=== PATIENT | female | born 1950 | race Caucasian/White ===

== ENCOUNTER → 2018-05-29 17:15 | Outpatient (CLI) | payer BC, SELFPAY ==
[2017-02-12 11:46] VITALS: BMI 31.1
--- NOTE | 2018-05-29 17:22 | RAD_ITS ---
STUDY: X-RAY CHEST REASON FOR EXAM: Female, 67 years old. Chronic cough TECHNIQUE: 2 views COMPARISON: None. FINDINGS: The lungs are clear and expanded. There is no demonstrated pleural abnormality. Normal size heart. Normal mediastinum and sahil. Normal visualized pulmonary arteries. Normal visualized aortic arch and descending thoracic aorta. Mild degenerative changes of the thoracic spine. A mild and gentle thoracic scoliosis with convexity to the right. Normal visualized ribs, clavicles, and shoulders. There is no demonstrated abnormality of the visualized soft tissue structures of the upper abdomen. RAD/Chest PA and Lateral IMPRESSION: No acute findings in the lungs. Electronically Signed: Hunter Cook MD at 23:33 EST Tel , Service support ,
== END ==
PROVIDERS: Family Provider Family Medicine; PCP Family Medicine; Referring Provider Family Medicine; Visit Provider Family Medicine
DX: R05 Cough (principal)
CPT/HCPCS: 71046

== ENCOUNTER → 2018-06-12 07:42 | Outpatient (CLI) | payer BC, SELFPAY ==
--- NOTE | 2018-06-12 07:44 | BI_ITS ---
MAMMOGRAPHY - BILATERAL SCREENING REASON FOR EXAM: Female, 67 years old. Routine annual screening examination. PERTINENT HISTORY: Non-contributory. TECHNIQUE: Digital bilateral breast rosalina (3D mammographic acquisition) in the CC and MLO projections. 2-D mediolateral oblique (MLO) and craniocaudad (CC) views of both breasts were obtained. CAD: Full Field Digital Mammography with Computer Added Detection was performed. COMPARISON: Comparison is made with prior study dated March 20, 2016 and April 24, 2017. FINDINGS: Breast Composition: There are scattered areas of fibroglandular density. There are no dominant masses or suspicious calcifications. Stable benign-appearing bilateral axillary lymph nodes. No other significant abnormalities are identified. There has been no significant change since the prior study. BI/SCREENING MAMM (CAD), BILAT IMPRESSION: Stable bilateral screening mammogram. Yearly follow-up mammogram recommended. (A) ASSESSMENT CATEGORY: BIRADS Category 2: Benign. A letter regarding these results will be sent to the patient by the facility within 30 days. Approximately 10% of breast cancers are not detected by mammography. A normal mammogram should not delay biopsy of a clinically suspicious abnormality. [id number] Electronically Signed: Kip Celestin MD at 11:26 EST Tel [phone], Service support ,
--- OUTSIDE RECORDS SUMMARY | 2018-08-16 22:30 | XMS RPT_ITS ---
:1950 Author Organization [facility] Care Team Providers Name Role Phone Rebecca Gonzales Attending Unavailable Rbeecca Gonzales Referring Unavailable Rebecca Gonzales Primary Care Unavailable MalysRebecca Attending Unavailable Malys, Rebecca Primary Care Unavailable PROBLEMS PROBLEMS DATE TYPE CONDITION / CODE ATTENDING STATUS SOURCE 05/29/2018 Unknown R05 - Cough / Janet Rebecca Active [place] R05(ICD-10) [facility] Repository PROCEDURES PROCEDURES No Procedure Records FoundRESULTS RESULTS SCREENING MAMM (CAD), Observed: 06/12/2018 Status: F Source: [place] BIL 7:44 AM [facility] REPOSITORY [facility] Imaging Services [address] [place] [address] SCREENING MAMM (CAD), BILAT MR#: [id number] Acct: [id number] Name: MICHELLE WAKEFIELD Rep #: [id number] : 1950 F 67 From: Kip Celestin MD PCP: Rebecca Gonzales DO Status: REG CLI Study: SCREENING MAMM (CAD), BILAT Date of Exam: 06/12/18 Exam# [id number] Ordering Dr: Rebecca Gonzales DO MAMMOGRAPHY - BILATERAL SCREENING REASON FOR EXAM: Female, 67 years old. Routine annual screening examination. PERTINENT HISTORY: Non-contributory. TECHNIQUE: Digital bilateral breast rosalina (3D mammographic acquisition) in the CC and MLO projections. 2-D mediolateral oblique (MLO) and craniocaudad (CC) views of both breasts were obtained. CAD: Full Field Digital Mammography with Computer Added Detection was performed. COMPARISON: Comparison is made with prior study dated March 20, 2016 and April 24, 2017. FINDINGS: Breast Composition: There are scattered areas of fibroglandular density. There are no dominant masses or suspicious calcifications. Stable benign-appearing bilateral axillary lymph nodes. No other significant abnormalities are identified. There has been no significant change since the prior study. BI/SCREENING MAMM (CAD), BILAT IMPRESSION: Stable bilateral screening mammogram. Yearly follow-up mammogram recommended. (A) ASSESSMENT CATEGORY: BIRADS Category 2: Benign. A letter regarding these results will be sent to the patient by the facility within 30 days. Approximately 10% of breast cancers are not detected by mammography. A normal mammogram should not delay biopsy of a clinically suspicious abnormality. [id number] Electronically Signed: Kip Celestin MD at 11:26 EST Tel [phone], Service support , CC: Rebecca Gonzales DO [employer]: Signed CHEST PA AND LATERAL Observed: 05/29/2018 Status: F Source: [place] 5:22 PM [facility] REPOSITORY [facility] Imaging Services [facility] [place] [address] Chest PA and Lateral MR#: [id number] Acct: [id number] Name: MICHELLE WAKEFIELD Rep #: [id number] : 1950 F 67 From: Hunter Cook MD PCP: Rebecca Gonzales DO Status: REG CLI Study: Chest PA and Lateral Date of Exam: 05/29/18 Exam# [id number] Ordering Dr: Rebecca Gonzales DO STUDY: X-RAY CHEST REASON FOR EXAM: Female, 67 years old. Chronic cough TECHNIQUE: 2 views COMPARISON: None. FINDINGS: The lungs are clear and expanded. There is no demonstrated pleural abnormality. Normal size heart. Normal mediastinum and sahil. Normal visualized pulmonary arteries. Normal visualized aortic arch and descending thoracic aorta. Mild degenerative changes of the thoracic spine. A mild and gentle thoracic scoliosis with convexity to the right. Normal visualized ribs, clavicles, and shoulders. There is no demonstrated abnormality of the visualized soft tissue structures of the upper abdomen. RAD/Chest PA and Lateral IMPRESSION: No acute findings in the lungs. Electronically Signed: Hunter Cook MD at 23:33 EST Tel , Service support , CC: Rebecca Gonzales DO Company [employer] Driver: Signed ALLERGIES ALLERGIES DATE TYPE / CODE NAME / CODE REACTION SEVERITY SOURCE 02/07/2017 Drug Sulfa DOESNT WORK FOR Unknown [facility] Allergy/4160 (Sulfonamide [facility] [address](SNOMED Antibiotics)/ Repository CT) [id number](RX NORM) ENCOUNTERS ENCOUNTERS ADMIT/DISCHARGE ACCOUNT ADMITTING ENCOUNTER LOCATION SOURCE NUMBER CLASS 06/12/2018 [id number] Ambulatory [place] ing:OPBI Repository 05/29/2018 [id number] Ambulatory [address] ing:RAD Repository PAYERS PAYERS ENCOUNTER GUARANTOR PAYER SUBSCRIBER SOURCE 06/12/2018 MICHELLE C Primary MICHELLE C [place] [id number] DEER Insurance:ANTHEMPolic BEEMANDOB: [facility], y Number: [id number] [address]Khx: [id number] Repository Date:[id number], [place] [address]YL: 06/12/2018 Secondary NOT GIVENUNK [place] Insurance:SELF PAY [facility] Number: Effective Repository Date:2018-05-29 05/29/2018 MICHELLE C Primary MICHELLE C [place] [id number] DEER Insurance:ANTHEMPolic BEEMANDOB: [facility], y Number: [id number] [address]Ppu: [id number] Repository Date:[id number] () [address], [place] [address]QH: 05/29/2018 Secondary NOT GIVENUNK [place] Insurance:SELF PAY [facility] Number: Effective Repository Date:2018-05-29
== END ==
PROVIDERS: Family Provider Family Medicine; PCP Family Medicine; Visit Provider Family Medicine
DX: Z12.31 Encounter for screening mammogram for malignant neoplasm of breast (principal)
CPT/HCPCS: 77063; 77067

== ENCOUNTER → 2019-11-05 08:13 | Outpatient (CLI) | payer MEDICARE, OTHER, SELFPAY ==
[2017-02-12 11:46] VITALS: BMI 31.1
[2019-11-05 12:30] LABS: Absolute Lymphocyte Count 1.66 X10^3/uL (0.83-4.51); Absolute Neutrophil Count 3.6 X10^3/uL (2.0-7.7); Basophil# 0.05 X10^3/uL; Basophil% 0.9 % (0-1); Eosinophil# 0.14 X10^3/uL; Eosinophils% 2.4 % (0-5); Hematocrit 46.4 % (37-47); Hemoglobin 14.5 g/dL (12.0-15.0); Lymphocyte # 1.66 X10^3/ul (4.0); Lymphocyte % 28.4 % (19-41); Mean Corp Hgb Conc 31.3 g/dL (32-36); Mean Corpuscular Hgb 29.8 pg (27.0-32.0); Mean Corpuscular Volume 95.5 fL (81-99); Monocyte# 0.42 X10^3/uL; Monocyte% 7.2 % (0-10); NRBC Flagged by Analyzer 0 % (0-5); Neutrophil # 3.56 X10^3/uL (2.7-7.7); Neutrophil % 60.8 % (47-70); Platelet Count 190 K/mm3 (150-450); RBC Distribution Width CV 13.9 % (11.6-14.6); RBC Distribution Width SD 48.3 fl (35.1-43.9); Red Blood Count 4.86 M/mm3 (4.2-5.4); White Blood Count 5.9 K/mm3 (4.4-11.0)
[2019-11-05 12:53] LABS: AST(SGOT) 18 U/L (15-37); Alanine Aminotransfer ALT/SGPT 28 U/L (13-56); Albumin, Serum 3.5 g/dL (3.2-5.0); Alkaline Phosphatase 69 U/L (45-117); Anion Gap 9 (5-15); BUN 17 mg/dL (7-18); BUN/Creat Ratio 14.4 RATIO (10-20); Calcium,Total 8.8 mg/dL (8.5-10.1); Chloride 107 mmol/L (98-107); Cholesterol 189 mg/dL (200); Creatinine, Serum 1.18 mg/dL (0.55-1.02); EST Glomerular Filtration Rate 48 mL/min (>60); Est Glom Filt Rate - Afr Amer 58 mL/min (>60); Globulin 3.5 g/dL (2.2-4.2); Glucose 116 mg/dL (74-106); High Density Lipoprotein 45 mg/dL; Potassium 4.5 mmol/L (3.5-5.1); Sodium Level 142 mmol/L (136-145); Thyroid Stim Hormone (TSH) 0.91 uIU/mL (0.358-3.74); Triglycerides 175 mg/dL; Very Low Density Lipoprotein 35 mg/dL (5-40); Vitamin B12 889 pg/mL (211-911); Vitamin D,25 Hydroxy 74.6 ng/mL
== END ==
PROVIDERS: PCP Family Medicine; Visit Provider Family Medicine
DX: Z00.00 Encounter for general adult medical examination without abnormal findings (principal); E53.8 Deficiency of other specified B group vitamins; R53.83 Other fatigue; M81.0 Age-related osteoporosis without current pathological fracture; E78.5 Hyperlipidemia, unspecified
CPT/HCPCS: 36415; 80053; 80061; 82306; 82607; 84443; 85025

== ENCOUNTER → 2019-12-03 12:11 | Outpatient (CLI) | payer MEDICARE, OTHER, SELFPAY ==
--- NOTE | 2019-12-03 12:16 | BI_ITS ---
MAMMOGRAPHY - BILATERAL SCREENING REASON FOR EXAM: Female, 69 years old. Routine annual screening examination. PERTINENT HISTORY: Non-contributory. TECHNIQUE: Digital bilateral breast adriana (3D mammographic acquisition) in the CC and MLO projections. 2-D mediolateral oblique (MLO) and craniocaudad (CC) views of both breasts were obtained. CAD: Full Field Digital Mammography with Computer Added Detection was performed. COMPARISON: Comparison is made with prior examination dated December 10, 2018 and April 24, 2017. FINDINGS: Breast Composition: There are scattered areas of fibroglandular density. There are no dominant masses or suspicious calcifications. Stable benign-appearing bilateral axillary lymph nodes. No other significant abnormalities are identified. There has been no significant change since the prior study. BI/SCREEN MAMM (CAD) W/ADRIANA BILAT IMPRESSION: Stable bilateral screening mammogram. Yearly follow-up mammogram recommended. (A) ASSESSMENT CATEGORY: BIRADS Category 2: Benign. A letter regarding these results will be sent to the patient by the facility within 30 days. Approximately 10% of breast cancers are not detected by mammography. A normal mammogram should not delay biopsy of a clinically suspicious abnormality. [id number] Electronically Signed: Kip Celestin, at 13:19 EDT , Service support ,
== END ==
PROVIDERS: PCP Family Medicine; Referring Provider Family Medicine; Visit Provider Family Medicine
DX: Z12.31 Encounter for screening mammogram for malignant neoplasm of breast (principal)
CPT/HCPCS: 77063; 77067

== ENCOUNTER → 2021-03-04 11:23 | Outpatient (CLI) | payer MEDICARE, OTHER, SELFPAY ==
--- NOTE | 2021-03-04 11:28 | BI_ITS ---
MAMMOGRAPHY - BILATERAL SCREENING 3-D TOMOSYNTHESIS REASON FOR EXAM: Female, 70 years old. SCREENING PERTINENT HISTORY: No significant family history. TECHNIQUE: 2-D mammograms and 3-D Tomosynthesis of the breast (s) were performed. CAD was performed. COMPARISON: 12/03/2019 FINDINGS: The breast composition is composed of scattered fibroglandular density. Scattered benign calcifications are seen. No dense spiculated masses or suspicious microcalcifications are identified. No architectural distortion is identified. There is no skin thickening or retraction. There has been no significant change since the prior study. BI/SCRN MAMM (CAD)W/ADRIANA BILAT IMPRESSION: No mammographic signs of malignancy. Routine yearly mammograms recommended. ASSESSMENT CATEGORY: BIRADS Category 1: Negative. A letter regarding these results will be sent to the patient by the facility within 30 days. FOLLOW UP RECOMMENDATION: Yearly follow up mammogram recommended. (A) Approximately 10% of breast cancers are not detected by mammography. A normal mammogram should not delay biopsy of a clinically suspicious abnormality. Electronically Signed: Yasmani Lee MD at 14:40 EDT Tel , Service support ,
== END ==
PROVIDERS: PCP Family Medicine; Referring Provider Family Medicine; Visit Provider Family Medicine
DX: Z12.31 Encounter for screening mammogram for malignant neoplasm of breast (principal)
CPT/HCPCS: 77063; 77067

== ENCOUNTER → 2022-04-11 | Outpatient (CLI) | payer MEDICARE, OTHER, SELFPAY ==
[2022-04-11 11:58] LABS: Absolute Lymphocyte Count 1.67 X10^3/uL (0.83-4.51); Absolute Neutrophil Count 3.4 X10^3/uL (2.0-7.7); Basophil# 0.06 X10^3/uL; Basophil% 1.1 % (0-1); Eosinophil# 0.22 X10^3/uL; Eosinophils% 3.9 % (0-5); Hemoglobin 15.1 g/dL (12.0-15.0); Lymphocyte # 1.67 X10^3/ul (0.83-4.51); Lymphocyte % 29.5 % (19-41); Mean Corp Hgb Conc 32.8 g/dL (32-36); Mean Corpuscular Hgb 30.6 pg (27.0-32.0); Mean Corpuscular Volume 93.3 fL (81-99); Mean Platelet Vol. 10.6 fl (6.2-12.0); Monocyte# 0.34 X10^3/uL; NRBC Flagged by Analyzer 0 % (0-5); Neutrophil # 3.36 X10^3/uL (2.7-7.7); Neutrophil % 59.1 % (47-70); Platelet Count 205 K/mm3 (150-450); RBC Distribution Width CV 13.5 % (11.6-14.6); RBC Distribution Width SD 46.3 fl (35.1-43.9); Red Blood Count 4.93 M/mm3 (4.2-5.4); White Blood Count 5.7 K/mm3 (4.4-11.0)
[2022-04-11 12:05] LABS: AST(SGOT) 15 U/L (15-37); Alanine Aminotransfer ALT/SGPT 25 U/L (13-56); Albumin, Serum 3.5 g/dL (3.2-5.0); Alkaline Phosphatase 55 U/L (45-117); Anion Gap 5 (5-15); BUN 11 mg/dL (7-18); BUN/Creat Ratio 11.9 RATIO (10-20); Calcium,Total 8.7 mg/dL (8.5-10.1); Chloride 108 mmol/L (98-107); Cholesterol 174 mg/dL (200); Creatinine, Serum 0.92 mg/dL (0.55-1.02); EST Glomerular Filtration Rate 63 mL/min (>60); Est Glom Filt Rate - Afr Amer 77 mL/min (>60); Globulin 3.5 g/dL (2.2-4.2); Glucose 107 mg/dL (74-106); High Density Lipoprotein 54 mg/dL; Potassium 4.2 mmol/L (3.5-5.1); Sodium Level 142 mmol/L (136-145); Triglycerides 171 mg/dL; Very Low Density Lipoprotein 34 mg/dL (5-40)
== END | disposition home or self-care (01) ==
LOC: BFHLAB 09:22
PROVIDERS: PCP Family Medicine; Visit Provider Family Medicine
DX: Z51.81 Encounter for therapeutic drug level monitoring (principal); E78.5 Hyperlipidemia, unspecified
CPT/HCPCS: 36415; 80053; 80061; 85025

== ENCOUNTER → 2022-04-27 | Outpatient (CLI) | payer MEDICARE, OTHER, SELFPAY ==
--- NOTE | 2022-04-27 13:09 | BI_ITS ---
MAMMOGRAPHY - BILATERAL SCREENING REASON FOR EXAM: Female, 71 years old. Routine annual screening examination. PERTINENT HISTORY: Non-contributory. TECHNIQUE: Digital bilateral breast adriana (3D mammographic acquisition) in the CC and MLO projections. 2-D mediolateral oblique (MLO) and craniocaudad (CC) views of both breasts were obtained. CAD: Full Field Digital Mammography with Computer Added Detection was performed. COMPARISON: Comparison is made with prior study dated 03/04/2021 and 12/03/2019. FINDINGS: Breast Composition: There are scattered areas of fibroglandular density. There are no dominant masses or suspicious calcifications. Stable small benign-appearing bilateral axillary No other significant abnormalities are identified. There has been no significant change since the prior study. BI/SCRN MAMM (CAD)W/ADRIANA BILAT IMPRESSION: Stable bilateral screening mammogram. Yearly follow-up mammogram recommended. (A) ASSESSMENT CATEGORY: BIRADS Category 2: Benign. A letter regarding these results will be sent to the patient by the facility within 30 days. Approximately 10% of breast cancers are not detected by mammography. A normal mammogram should not delay biopsy of a clinically suspicious abnormality. [id number] Electronically Signed: Kip Celestin MD at 14:14 EST ,
--- NOTE | 2022-04-27 13:27 | BD_ITS ---
STUDY: DUAL ENERGY X-RAY ABSORPTIOMETRY / DXA REASON FOR EXAM: Female, 71 years old. M810 TECHNIQUE: Bone Mineral Density (BMD) measurements of lumbar spine and bilateral hips were obtained. COMPARISON: Comparison is made with prior examination 01/23/2012. FINDINGS: Lumbar Spine (L1-L4): g/cm2 (0.774) / T-score (-2.2) / Z-score (0.1) Findings are suggestive of osteopenia with a high fracture risk. Left Femur Total: g/cm2 (0.739) / T-score (-1.7) / Z-score (0.0) Left Femoral Neck: g/cm2 (0.577) / T-score (-2.5) / Z-score (-0.4) Right Femur Total: g/cm2 (0.769) / T-score (-1.4) / Z-score (0.3) Right Femoral Neck: g/cm2 (0.596) / T-score (-2.3) / Z-score (-0.3) The T-Scores on the most recent prior examination were: Lumbar Spine (L1-L4): There has been worsening of bone density since the previous examination. Left Femur Total: which represents a worsening of 8%. Right Femur Total: which represents a worsening of 4.8%. BD/Dexa Bone Density Study IMPRESSION: The patient is considered osteopenic as outlined below according to World Markos Organization (WHO) criteria with a high fracture risk. There has been worsening of bone density since the previous examination. Reference Information: The T-score is the number of standard deviations above or below the standard which is normal for young adults at their peak bone mineral density. The World Health Organization (WHO) interprets the T-scores as follows: Above -1 Normal bone density Between -1 and -2.5 Osteopenia Equal to / or below -2.5 Osteoporosis As a practical clinical guideline, osteopenia may be graded as follows: Mild -1 through -1.5 Moderate -1.6 through -2.0 Severe -2.1 through -2.4 The Z-score is the number of standard deviations above or below age-matched controls. A Z-score of less than -1.5 would be considered abnormal. References: 1. NIH Osteoporosis and Related Bone Diseases www osteo.org 2. International Society for Clinical Densitometry www iscd.org 3. National Osteoporosis Foundation www nof.org Electronically Signed: Kip Celestin MD at 14:07 EST ,
== END | disposition home or self-care (01) ==
LOC: OPBD 13:06
PROVIDERS: PCP Family Medicine; Visit Provider Family Medicine
DX: Z12.31 Encounter for screening mammogram for malignant neoplasm of breast (principal); M81.0 Age-related osteoporosis without current pathological fracture
CPT/HCPCS: 77063; 77067; 77080

== ENCOUNTER → 2022-07-04 | Outpatient (CLI) | payer MEDICARE, OTHER, SELFPAY ==
[2022-07-04 14:41] LABS: Absolute Lymphocyte Count 1.42 X10^3/uL (0.83-4.51); Absolute Neutrophil Count 5.4 X10^3/uL (2.0-7.7); Basophil# 0.06 X10^3/uL; Basophil% 0.8 % (0-1); Eosinophil# 0.12 X10^3/uL; Eosinophils% 1.6 % (0-5); Hematocrit 47.1 % (37-47); Hemoglobin 14.8 g/dL (12.0-15.0); Lymphocyte # 1.42 X10^3/ul (0.83-4.51); Lymphocyte % 19.3 % (19-41); Mean Corp Hgb Conc 31.4 g/dL (32-36); Mean Corpuscular Hgb 29.7 pg (27.0-32.0); Mean Corpuscular Volume 94.4 fL (81-99); Mean Platelet Vol. 10.3 fl (6.2-12.0); Monocyte# 0.32 X10^3/uL; Monocyte% 4.3 % (0-10); NRBC Flagged by Analyzer 0 % (0-5); Neutrophil # 5.43 X10^3/uL (2.7-7.7); Neutrophil % 73.7 % (47-70); Platelet Count 204 K/mm3 (150-450); RBC Distribution Width CV 13.3 % (11.6-14.6); RBC Distribution Width SD 46.6 fl (35.1-43.9); Red Blood Count 4.99 M/mm3 (4.2-5.4); White Blood Count 7.4 K/mm3 (4.4-11.0)
[2022-07-04 15:13] LABS: AST(SGOT) 18 U/L (15-37); Alanine Aminotransfer ALT/SGPT 23 U/L (13-56); Alkaline Phosphatase 65 U/L (45-117); Bilirubin, Direct 0.11 mg/dL (0.00-0.30); Globulin 3.4 g/dL (2.2-4.2); Protein, Total 7.4 g/dL (6.4-8.2)
[2022-07-04 16:27] LABS: Hepatitis B Surface Antibody Non-Reactive; Hepatitis B Surface Antigen Non-Reactive (Nonreactive); Hepatitis C Antibody Non-Reactive (Nonreactive)
[2022-07-06 16:10] LABS: QNTFERON TB Mitogen Value > 10.00 IU/mL (.); QNTFERON TB Nil Value 0.01 IU/mL (.); QNTFERON TB1+ Ag Value 0.04 IU/mL (.); QNTFERON TB2+ Ag Value 0.01 IU/mL (.)
[2022-07-06 16:41] LABS: Hepatitis B Core Ab Total Negative (Negative); QNTIFERON TB Positive Criteria Negative (Negative)
== END | disposition home or self-care (01) ==
LOC: MTLAB 13:12
PROVIDERS: PCP Family Medicine; Referring Provider Dermatology; Visit Provider Dermatology
DX: L40.0 Psoriasis vulgaris (principal); L40.8 Other psoriasis; Z79.899 Other long term (current) drug therapy
CPT/HCPCS: 36415; 80076; 85025; 86480; 86704; 86706; 86803; 87340

== ENCOUNTER → 2023-04-10 | Outpatient (CLI) | payer MEDICARE, OTHER, SELFPAY ==
[2023-04-10 12:37] LABS: Absolute Lymphocyte Count 1.35 X10^3/uL (0.83-4.51); Absolute Neutrophil Count 4.9 X10^3/uL (2.0-7.7); Basophil# 0.08 X10^3/uL; Basophil% 1.2 % (0-1); Eosinophil# 0.15 X10^3/uL; Eosinophils% 2.2 % (0-5); Hematocrit 44.5 % (37-47); Hemoglobin 13.9 g/dL (12.0-15.0); Lymphocyte # 1.35 X10^3/ul (0.83-4.51); Lymphocyte % 19.5 % (19-41); Mean Corp Hgb Conc 31.2 g/dL (32-36); Mean Corpuscular Hgb 29.8 pg (27.0-32.0); Mean Corpuscular Volume 95.5 fL (81-99); Mean Platelet Vol. 10.9 fl (6.2-12.0); Monocyte# 0.43 X10^3/uL; Monocyte% 6.2 % (0-10); NRBC Flagged by Analyzer 0 % (0-5); Neutrophil # 4.88 X10^3/uL (2.7-7.7); Neutrophil % 70.6 % (47-70); Platelet Count 225 K/mm3 (150-450); RBC Distribution Width CV 13.9 % (11.6-14.6); RBC Distribution Width SD 48.5 fl (35.1-43.9); Red Blood Count 4.66 M/mm3 (4.2-5.4); White Blood Count 6.9 K/mm3 (4.4-11.0)
[2023-04-10 13:05] LABS: AST(SGOT) 21 U/L (15-37); Alanine Aminotransfer ALT/SGPT 25 U/L (13-56); Albumin, Serum 3.4 g/dL (3.2-5.0); Alkaline Phosphatase 61 U/L (45-117); Anion Gap 4 (5-15); BUN 13 mg/dL (7-18); BUN/Creat Ratio 14.4 RATIO (10-20); Calcium,Total 8.6 mg/dL (8.5-10.1); Chloride 108 mmol/L (98-107); Cholesterol 160 mg/dL (200); EST Glomerular Filtration Rate 65 mL/min (>60); Est Glom Filt Rate - Afr Amer 78 mL/min (>60); Free T3 2.8 pg/mL (2.18-3.98); Globulin 3.5 g/dL (2.2-4.2); Glucose 99 mg/dL (74-106); High Density Lipoprotein 48 mg/dL; Potassium 4.4 mmol/L (3.5-5.1); Protein, Total 6.9 g/dL (6.4-8.2); Sodium Level 141 mmol/L (136-145); Thyroid Stim Hormone (TSH) 0.53 uIU/mL (0.358-3.74); Triglycerides 185 mg/dL; Very Low Density Lipoprotein 37 mg/dL (5-40)
[2023-04-10 13:48] LABS: Hemoglobin A1c 5.7 % (3.8-5.6)
== END | disposition home or self-care (01) ==
LOC: BFHLAB 08:48
PROVIDERS: PCP Family Medicine; Visit Provider Family Medicine
DX: R73.03 Prediabetes (principal); R53.83 Other fatigue; Z51.81 Encounter for therapeutic drug level monitoring; E78.5 Hyperlipidemia, unspecified
CPT/HCPCS: 36415; 80053; 80061; 83036; 84443; 84481; 85025

== ENCOUNTER → 2023-05-10 | Outpatient (CLI) | payer MEDICARE, OTHER, SELFPAY ==
--- NOTE | 2023-05-10 12:18 | BI_ITS ---
MAMMOGRAPHY - BILATERAL SCREENING REASON FOR EXAM: Female, 72 years old. Routine annual screening examination. PERTINENT HISTORY: Non-contributory. TECHNIQUE: Digital bilateral breast adriana (3D mammographic acquisition) in the CC and MLO projections. 2-D mediolateral oblique (MLO) and craniocaudad (CC) views of both breasts were obtained. CAD: Full Field Digital Mammography with Computer Added Detection was performed. COMPARISON: Comparison is made with prior study dated April 27, 2022 and March 04, 2021. FINDINGS: Breast Composition: There are scattered areas of fibroglandular density. There are no dominant masses or suspicious calcifications. Stable benign-appearing bilateral axillary lymph nodes. No other significant abnormalities are identified. There has been no significant change since the prior study. BI/SCRN MAMM (CAD)W/ADRIANA BILAT IMPRESSION: Stable bilateral screening mammogram. Yearly follow-up mammogram recommended. (A) ASSESSMENT CATEGORY: BIRADS Category 2: Benign. A letter regarding these results will be sent to the patient by the facility within 30 days. Approximately 10% of breast cancers are not detected by mammography. A normal mammogram should not delay biopsy of a clinically suspicious abnormality. [id number] Electronically Signed: Kip Celestin MD at 13:54 EST ,
== END | disposition home or self-care (01) ==
LOC: OPBI 12:15
PROVIDERS: PCP Family Medicine; Referring Provider Family Medicine; Visit Provider Family Medicine
DX: Z12.31 Encounter for screening mammogram for malignant neoplasm of breast (principal)
CPT/HCPCS: 77063; 77067

== ENCOUNTER → 2023-07-09 | Outpatient (CLI) | payer MEDICARE, OTHER, SELFPAY ==
[2023-07-09 17:55] LABS: Absolute Lymphocyte Count 1.56 X10^3/uL (0.83-4.51); Absolute Neutrophil Count 4.4 X10^3/uL (2.0-7.7); Basophil# 0.05 X10^3/uL; Basophil% 0.8 % (0-1); Eosinophils% 1.5 % (0-5); Hematocrit 43.5 % (37-47); Lymphocyte # 1.56 X10^3/ul (0.83-4.51); Lymphocyte % 23.6 % (19-41); Mean Corp Hgb Conc 32.2 g/dL (32-36); Mean Corpuscular Hgb 29.7 pg (27.0-32.0); Mean Corpuscular Volume 92.2 fL (81-99); Mean Platelet Vol. 10.9 fl (6.2-12.0); Monocyte# 0.48 X10^3/uL; Monocyte% 7.3 % (0-10); NRBC Flagged by Analyzer 0 % (0-5); Neutrophil # 4.41 X10^3/uL (2.7-7.7); Neutrophil % 66.5 % (47-70); Platelet Count 206 K/mm3 (150-450); RBC Distribution Width CV 13.8 % (11.6-14.6); RBC Distribution Width SD 47.1 fl (35.1-43.9); Red Blood Count 4.72 M/mm3 (4.2-5.4); White Blood Count 6.6 K/mm3 (4.4-11.0)
[2023-07-09 18:12] LABS: AST(SGOT) 18 U/L (15-37); Alanine Aminotransfer ALT/SGPT 26 U/L (13-56); Albumin, Serum 3.7 g/dL (3.2-5.0); Alkaline Phosphatase 65 U/L (45-117); Bilirubin, Direct 0.08 mg/dL (0.00-0.30); Globulin 3.2 g/dL (2.2-4.2); Protein, Total 6.9 g/dL (6.4-8.2)
[2023-07-11 16:09] LABS: QNTFERON TB Mitogen Value > 10.00 IU/mL (.); QNTFERON TB Nil Value 0.01 IU/mL (.); QNTFERON TB1+ Ag Value 0.03 IU/mL (.); QNTFERON TB2+ Ag Value 0.02 IU/mL (.); QNTIFERON TB Positive Criteria Negative (Negative)
== END | disposition home or self-care (01) ==
PROVIDERS: PCP Family Medicine; Referring Provider Dermatology; Visit Provider Dermatology
DX: L40.0 Psoriasis vulgaris (principal); L40.8 Other psoriasis; Z79.899 Other long term (current) drug therapy
CPT/HCPCS: 36415; 80076; 85025; 86480

== ENCOUNTER → 2024-04-10 | Outpatient (CLI) | payer MEDICARE, OTHER, SELFPAY ==
[2024-04-10 15:37] LABS: Absolute Lymphocyte Count 1.53 X10^3/uL (0.83-4.51); Absolute Neutrophil Count 4.7 X10^3/uL (2.0-7.7); Basophil# 0.05 X10^3/uL; Basophil% 0.7 % (0-1); Eosinophil# 0.09 X10^3/uL; Eosinophils% 1.3 % (0-5); Hematocrit 44.2 % (37-47); Hemoglobin 14.2 g/dL (12.0-15.0); Lymphocyte # 1.53 X10^3/ul (0.83-4.51); Lymphocyte % 22.3 % (19-41); Mean Corp Hgb Conc 32.1 g/dL (32-36); Mean Corpuscular Hgb 29.9 pg (27.0-32.0); Mean Corpuscular Volume 93.1 fL (81-99); Mean Platelet Vol. 10.9 fl (6.2-12.0); Monocyte# 0.42 X10^3/uL; Monocyte% 6.1 % (0-10); NRBC Flagged by Analyzer 0 % (0-5); Neutrophil # 4.73 X10^3/uL (2.7-7.7); Neutrophil % 69.2 % (47-70); Platelet Count 212 K/mm3 (150-450); RBC Distribution Width CV 13.7 % (11.6-14.6); Red Blood Count 4.75 M/mm3 (4.2-5.4); White Blood Count 6.9 K/mm3 (4.4-11.0)
[2024-04-10 15:53] LABS: Vitamin B12 395 pg/mL (211-911)
[2024-04-10 16:25] LABS: ALB/GLOB Ratio 1.2 RATIO (0.9-2.4); AST(SGOT) 19 U/L (15-37); Alanine Aminotransfer ALT/SGPT 29 U/L (13-56); Albumin, Serum 3.8 g/dL (3.2-5.0); Alkaline Phosphatase 66 U/L (45-117); Anion Gap 4 (5-15); BUN 19 mg/dL (7-18); BUN/Creat Ratio 20.1 RATIO (10-20); Chloride 109 mmol/L (98-107); Cholesterol 168 mg/dL (200); Creatinine, Serum 0.94 mg/dL (0.55-1.02); EST Glomerular Filtration Rate 61 mL/min (>60); Est Glom Filt Rate - Afr Amer 74 mL/min (>60); Free T3 3.1 pg/mL (2.18-3.98); Globulin 3.3 g/dL (2.2-4.2); Glucose 96 mg/dL (74-106); High Density Lipoprotein 51 mg/dL; Potassium 4.1 mmol/L (3.5-5.1); Protein, Total 7.1 g/dL (6.4-8.2); Sodium Level 141 mmol/L (136-145); Thyroid Stim Hormone (TSH) 0.432 uIU/mL (0.358-3.740); Triglycerides 167 mg/dL; Very Low Density Lipoprotein 33 mg/dL (5-40)
== END | disposition home or self-care (01) ==
LOC: BFHLAB 13:27
PROVIDERS: PCP Family Medicine; Referring Provider Family Medicine; Visit Provider Family Medicine
DX: R53.83 Other fatigue (principal); R73.03 Prediabetes; E78.5 Hyperlipidemia, unspecified; E53.8 Deficiency of other specified B group vitamins; Z51.81 Encounter for therapeutic drug level monitoring
CPT/HCPCS: 36415; 80053; 80061; 82607; 83036; 84443; 84481; 85025

== ENCOUNTER → 2024-05-27 | Outpatient (CLI) | payer MEDICARE, OTHER, SELFPAY ==
--- NOTE | 2024-05-27 15:54 | BI_ITS ---
MAMMOGRAPHY - BILATERAL SCREENING 3-D TOMOSYNTHESIS REASON FOR EXAM: Female, 73 years old. SCREENING PERTINENT HISTORY: No significant family history. TECHNIQUE: 2-D mammograms and 3-D Tomosynthesis of the breast (s) were performed. CAD was performed. COMPARISON: 05/10/2023 FINDINGS: The breast composition is composed of scattered fibroglandular density. Scattered benign calcifications are seen. No dense spiculated masses or suspicious microcalcifications are identified. No architectural distortion is identified. There is no skin thickening or retraction. There has been no significant change since the prior study. BI/SCRN MAMM (CAD)W/ADRIANA BILAT IMPRESSION: No mammographic signs of malignancy. Routine yearly mammograms recommended. ASSESSMENT CATEGORY: BIRADS Category 1: Negative. A letter regarding these results will be sent to the patient by the facility within 30 days. FOLLOW UP RECOMMENDATION: Yearly follow up mammogram recommended. (A) Approximately 10% of breast cancers are not detected by mammography. A normal mammogram should not delay biopsy of a clinically suspicious abnormality. Electronically Signed: Yasmani Lee MD at 20:01 EST ,
--- NOTE | 2024-05-27 15:57 | BD_ITS ---
STUDY: DUAL ENERGY X-RAY ABSORPTIOMETRY / DXA REASON FOR EXAM: Female, 73 years old. Postmenopausal screening TECHNIQUE: Bone Mineral Density (BMD) measurements of lumbar spine and bilateral hips were obtained. COMPARISON: 2011 and 2009 FINDINGS: Lumbar Spine (L1-L4): g/cm2 (0.803) / T-score (-2.2) / Z-score (0.2) When compared to the previous study, the bone mineral density of the lumbar spine has decreased by 5.6% Left Femur Total: g/cm2 (0.781) / T-score (-1.3) / Z-score (0.5) Left Femoral Neck: g/cm2 (0.532) / T-score (-2.9) / Z-score (-0.7) Right Femur Total: g/cm2 (0.761) / T-score (-1.5) / Z-score (0.3) Right Femoral Neck: g/cm2 (0.597) / T-score (-2.3) / Z-score (-0.2) When compared to the previous study, the bone mineral density of the left femur has increased by 5.7%, while the right femur has decreased by 1% BD/Dexa Bone Density Study IMPRESSION: The patient is considered osteoporotic as outlined below according to World Markos Organization (WHO) criteria with a high fracture risk. 10 year fracture risk: Major osteoporotic fracture 14%, hip fracture 4% Reference Information: The T-score is the number of standard deviations above or below the standard which is normal for young adults at their peak bone mineral density. The World Health Organization (WHO) interprets the T-scores as follows: Above -1 Normal bone density Between -1 and -2.5 Osteopenia Equal to / or below -2.5 Osteoporosis As a practical clinical guideline, osteopenia may be graded as follows: Mild -1 through -1.5 Moderate -1.6 through -2.0 Severe -2.1 through -2.4 The Z-score is the number of standard deviations above or below age-matched controls. A Z-score of less than -1.5 would be considered abnormal. References: 1. NIH Osteoporosis and Related Bone Diseases www osteo.org 2. International Society for Clinical Densitometry www iscd.org 3. National Osteoporosis Foundation www nof.org Electronically Signed: Eugenio Shah MD at 11:31 EST ,
== END | disposition home or self-care (01) ==
LOC: OPBD 15:52
PROVIDERS: PCP Family Medicine; Referring Provider Family Medicine; Visit Provider Family Medicine
DX: M81.0 Age-related osteoporosis without current pathological fracture (principal); Z12.31 Encounter for screening mammogram for malignant neoplasm of breast
CPT/HCPCS: 77063; 77067; 77080

== ENCOUNTER → 2024-07-10 | Outpatient (CLI) | payer MEDICARE, OTHER, SELFPAY ==
[2024-07-10 17:37] LABS: Absolute Neutrophil Count 6.8 X10^3/uL (2.0-7.7); Basophil# 0.07 X10^3/uL; Basophil% 0.8 % (0-1); Eosinophil# 0.09 X10^3/uL; Hematocrit 46.4 % (37-47); Hemoglobin 14.6 g/dL (12.0-15.0); Lymphocyte % 18.4 % (19-41); Mean Corp Hgb Conc 31.5 g/dL (32-36); Mean Corpuscular Hgb 29.7 pg (27.0-32.0); Mean Corpuscular Volume 94.3 fL (81-99); Mean Platelet Vol. 10.4 fl (6.2-12.0); Monocyte# 0.61 X10^3/uL; Monocyte% 6.6 % (0-10); NRBC Flagged by Analyzer 0 % (0-5); Neutrophil # 6.75 X10^3/uL (2.7-7.7); Neutrophil % 72.9 % (47-70); Platelet Count 246 K/mm3 (150-450); RBC Distribution Width SD 48.3 fl (35.1-43.9); Red Blood Count 4.92 M/mm3 (4.2-5.4); White Blood Count 9.3 K/mm3 (4.4-11.0)
[2024-07-10 17:50] LABS: AST(SGOT) 15 U/L (15-37); Alanine Aminotransfer ALT/SGPT 30 U/L (13-56); Albumin, Serum 3.7 g/dL (3.2-5.0); Alkaline Phosphatase 109 U/L (45-117); Bilirubin, Direct 0.11 mg/dL (0.00-0.30); Globulin 3.7 g/dL (2.2-4.2); Protein, Total 7.4 g/dL (6.4-8.2)
[2024-07-12 17:07] LABS: QNTFERON TB Mitogen Value > 10.00 IU/mL (.); QNTFERON TB Nil Value 0.01 IU/mL (.); QNTFERON TB1+ Ag Value 0.03 IU/mL (.); QNTFERON TB2+ Ag Value 0.01 IU/mL (.); QNTIFERON TB Positive Criteria Negative (Negative)
== END | disposition home or self-care (01) ==
PROVIDERS: PCP Family Medicine; Referring Provider Dermatology; Visit Provider Dermatology
DX: L40.0 Psoriasis vulgaris (principal); L40.8 Other psoriasis; Z79.899 Other long term (current) drug therapy
CPT/HCPCS: 36415; 80076; 85025; 86480

== ENCOUNTER → 2024-10-13 | Outpatient (CLI) | payer MEDICARE, OTHER, SELFPAY ==
--- NOTE | 2024-10-13 12:37 | RAD_ITS ---
PROCEDURE: ABDOMEN SINGLE VIEW 10/13/2024 REASON FOR EXAM: DIARRHEA TECHNIQUE: Single view abdomen. Two total images to include the entire abdomen and pelvis COMPARISON: None available FINDINGS: Bowel-gas pattern appears within limits. No gaseous distention of bowel or evidence of mass effect. The visualized lung bases appear clear. Mild leftward appearing lumbar curvature. RAD/Abdomen Single View IMPRESSION: Bowel-gas pattern appears within limits. No gaseous distention of bowel or evid ence of mass effect. Reading Location: [id number]
== END | disposition home or self-care (01) ==
LOC: MTRAD 12:35
PROVIDERS: PCP Family Medicine; Referring Provider Nurse Practitioner Family; Visit Provider Nurse Practitioner Family
DX: R19.7 Diarrhea, unspecified (principal)
CPT/HCPCS: 74018

== ENCOUNTER 2024-10-14 07:34 | Outpatient (CLI) | payer MEDICARE, OTHER, SELFPAY ==
[2024-10-15 13:08] LABS: H. PYLORI STOOL AG Negative (Negative)
== END 2024-10-14 23:59 | disposition home or self-care (01) ==
LOC: MTLAB 07:35
PROVIDERS: PCP Family Medicine; Referring Provider Nurse Practitioner Family; Visit Provider Nurse Practitioner Family
DX: R19.7 Diarrhea, unspecified (principal)
CPT/HCPCS: 83630; 87177; 87209; 87338; 87493; 87506

== ENCOUNTER → 2024-10-30 | Outpatient (CLI) | payer MEDICARE, OTHER, SELFPAY ==
--- NOTE | 2024-10-30 12:43 | CT_ITS ---
PROCEDURE: ABDOMEN/PELVIS WITH CONTRAST 10/30/2024 REASON FOR EXAM: ASSESS GI FOR ABNORMALITIES TECHNIQUE: Abdomen and pelvis CT with intravenous and oral contrast. Coronal and Sagittal reconstruction series were provided. PATIENT PREPARATION: Per protocol CONTRAST: 96 mL Isovue-300 One or more dose reduction techniques were used (e.g., Automated exposure control, adjustment of the mA and/or kV according to patient size, use of iterative reconstruction technique. RADIATION DOSE SUMMARY: CTDlvol: 20.2 mGy DLP: 1087 mGycm COMPARISON: Abdominal radiographs on 10/13/2024 FINDINGS: Lung bases: Linear scarring or atelectasis in the lingula. Liver: Unremarkable Gallbladder: Unremarkable Spleen: Normal size. Pancreas: Normal size without evidence of mass surrounding inflammation or ductal dilation. Adrenals: Unremarkable Kidneys: No hydronephrosis or stone. Extrarenal pelvis on the right. Bladder: Unremarkable Reproductive Organs: Uterine calcifications, likely calcified leiomyoma. Bowel: No obstruction or inflammation. Normal appendix. There are tiny diverticula from the transverse duodenum. Colonic diverticulosis. Lymph nodes: Unremarkable Vasculature: Trace aortic atherosclerotic calcifications. Bones: Degenerative changes of the spine. Abdominal wall: Tiny fat containing umbilical hernia. CT/Abdomen/Pelvis WITH Contrast IMPRESSION: 1. No acute intra-abdominal abnormality. 2. Tiny diverticula of the transverse duodenum. 3. Colonic diverticulosis, without evidence of acute diverticulitis. Reading Location: [id number]
--- OUTSIDE RECORDS SUMMARY | 2024-10-30 21:21 | XMS RPT_ITS | CCD ---
Author Organization [facility] Care Team Providers Care Stump Shooter Name Role Phone Dr. Rebecca Gonzales Primary Care Provider Dr. Rebecca Gonzales Referring Provider [phone] LOPEZ Mcgee Attending Provider [phone] Dr. Rebecca Gonzales DO Primary Care Provider Dick ROLAND, Dr. Velez Attending Provider [phone] Dick ROLAND, Dr. Velez Referring Provider [phone] Samuel PROFESSIONAL SKATER-C, Laurie Attending Provider [phone] Samuel PROFESSIONAL SKATER-C, Laurie Referring Provider [phone] Dr. Rebecca Gonzales DO Referring Provider [phone] Nicole Lucas Attending Provider Samuel, Laurie Attending Unavailable Malys, Rebecca Primary Care Unavailable Samuel, Laurie Referring Unavailable Malys, Rebecca Referring Unavailable Malys, Rebecca Primary Care Unavailable Malys, Rebecca Attending Unavailable Malys, Rebecca Primary Care Unavailable Malys, Rebecca Attending Unavailable Malys, Rebecca Referring Unavailable Nicole Farnsworth Attending Unavailable Malys, Rebecca Referring Unavailable Malys, Rebecca Primary Care Unavailable Agustin Jennings Attending Unavailable Agustin Jennings Referring Unavailable Samuel, Laurie Attending Unavailable Malys, Rebecca Primary Care Unavailable Sameul, Laurie Referring Unavailable Samuel, Laurie Attending Unavailable Malys, Rebecca Primary Care Unavailable Samuel, Laurie Referring Unavailable Friend, Loyd Attending Unavailable Allergies Allergy Classification Reported Allergen(s) Allergy Type Date of Onset Reaction(s) Facility (7 sources) Sulfonamides (Antibiotic) Propensity to adverse reactions 2 DOESNT WORK FOR [facility] (1 source) Sulfonamides (Antibiotic) Drug allergy (disorder) [facility] Repository Medications Current Medications Medication Drug Class(es) Dates Sig (Normalized) Sig (Original) biotin 5 mg oral capsule (7 sources) Start: 02-03-2022 take 1 capsule by mouth once daily Biotin 5 mg capsule Active 5 mg PO DAILY February 03, 2022 12:00am cholecalciferol 0.05 mg oral capsule (7 sources) Vitamin D Start: 02-07-2017 take 1 capsule by mouth once daily Cholecalciferol (Vitamin D3) (Vitamin D3) 2,000 UNIT capsule Active 2000 U PO DAILY February 07, 2017 12:00am 24 hr mirabegron 50 mg extended release oral tablet (7 sources) beta3-Adrenergi c Agonist Start: 02-03-2022 take 1 tablet by mouth every twenty-four hours Mirabegron (Myrbetriq) 50 mg tablet extended release 24 hr Active 50 mg PO February 03, 2022 12:00am Multivitamin (Multiple Vitamins) 1 EACH tablet (7 sources) Start: 02-07-2017 take 1 tablet by mouth once daily Multivitamin (Multiple Vitamins) 1 EACH tablet Active 1 NMA PO DAILY February 07, 2017 12:00am Start: 02-07-2017 take 1 tablet by kelli th once daily Multivitamin (Multiple Vitamins) 1 EACH tablet Active 1 EACH PO DAILY February 06, 2017 11:00pm omeprazole 40 mg delayed release oral capsule (7 sources) Proton Pump Inhibitor Start: 02-03-2022 Omeprazole 40 mg capsule,delayed release(DR/EC) Active 40 mg PO February 03, 2022 12:00am Risankizumab-Rzaa (1 source) Start: 10-24-2024 Risankizumab-R zaa (Skyrizi) 150 mg/mL syringe Active 150 mg SC every 12 weeks October 24, 2024 12:00am vitamin b12 0.5 mg oral tablet (7 sources) Vitamin B12 Start: 02-07-2017 take 2 tablets by mouth once daily Cyanocobalamin (Vitamin B-12) 500 MCG tablet Active 1000 ug PO DAILY@00 February 07, 2017 12:00am Start: 02-07-2017 take 1000 ug by mout h once daily Cyanocobalamin (Vitamin B-12) Active 1000 MCG PO DAILY@799February 06, 2017 11:00pm Completed/Discontinued Medications Medication Drug Class(es) Dates Sig (Normalized) Sig (Original) dexamethasone 6 mg oral tablet (7 sources) Corticosteroid Start: 02-03-2022 End: 10-24-2024 take 1 tablet by mouth once daily Dexamethasone (Decadron) 6 mg tablet Discontinued 6 mg PO DAILY February 03, 2022 12:00am October 24, 2024 12:58pm esomeprazole 20 mg delayed release oral capsule (7 sources) Proton Pump Inhibitor Start: 02-07-2017 End: 02-03-2022 take 1 capsule by mouth once daily Esomeprazole Magnesium (Nexium) 20 MG capsule Discontinued 20 mg PO DAILY February 07, 2017 12:00am February 03, 2022 1:22pm gelatin 650 mg oral capsule (7 sources) Start: 02-07-2017 End: 02-03-2022 take 1 capsule by mouth once daily Gelatin 650 MG capsule Discontinued 650 mg PO DAILY February 07, 2017 12:00am February 03, 2022 1:22pm solifenacin succinate 10 mg oral tablet (7 sources) Cholinergic Muscarinic Antagonist Start: 02-07-2017 End: 02-03-2022 take 1 tablet by mouth once daily Solifenacin (Vesicare) 10 MG tablet Discontinued 10 mg PO DAILY February 07, 2017 12:00am February 03, 2022 1:22pm Problems Active Problems Problem Classification Problem Date Documented Da te Episodic/Chronic Abdominal pain (3 sources) Abdominal pain; Translations: [Unspecified abdominal pain] Onset: 10-24-2024 10-24-2024 Episodic Osteoporosis (1 source) Age-related osteoporosis without current pathological fracture; Translations: [Age-related osteoporosis without current pathological fracture] Onset: 06-19-2024 Chronic Other disorders of stomach and duodenum (1 source) Other diseases of stomach and duodenum; Translations: [Other diseases of stomach and duodenum] Onset: 10-30-2024 Episodic Other gastrointestinal disorders (2 sources) Diarrhea; Translations: [Diarrhea, unspecified] 10-24-2024 Episodic Other gastrointestinal disorders (2 sources) Diarrhea, unspecified; Translations: [Diarrhea, unspecified] Onset: 10-24-2024 Episodic Other inflammatory condition of skin (1 source) Psoriasis vulgaris; Translations: [Psoriasis vulgaris] Onset: 07-25-2024 Chronic Past or Other Problems Problem Classification Problem Date Documented Da te Episodic/Chronic Malaise and fatigue (1 source) Other fatigue; Translations: [Other fatigue] Onset: 05-08-2024 Episodic Results Test Name Value Interpretation Reference Range Facility Gastroenterology Visit Repor ton 10-24-2024 Gastroenterology Visit Report [facility] Gastroenterology [address] [place] [address] OFFICE VISIT Date of Service: 10/24/24 MR#: [id number] Acct: [id number] Name: MICHELLE WAKEFIELD Rep #: [id number] : 1950 Provider: LOPEZ He Age/Sex: 74/F Location: [email or web address] Status: Signed with Addenda ADDENDUM by LOPEZ He on 10/30/24 at 1057 HPI Details: MICHELLE WAKEFIELD, is a 74 F who presents to the office today for HPI HPI Narrative: Patient has been on Omeprazole for 10-15 years not 30 years. 10/30/24 1057 Date Nicole Farnsworth cc: * Signed Intake Vital Signs 02/03/22 13:20 Height 5 ft 1.5 in Intake Visit Reasons: PRE Colon Chief Complaint: diarrhea Allergies Sulfa (Sulfonamide Antibiotics) Adverse Reaction (Verified 10/24/24 12:57) DOESNT WORK FOR ME Medications ???Medication ???Instructions ???Recorded ???Confirmed ???Type cholecalciferol (vitamin D3) 50 2,000 unit PO DAILY 02/07/1710/24 History mcg (2,000 unit) capsule (Vitamin D3) cyanocobalamin (vitamin B-12) 500 1,000 mcg PO DAILY@0800 02/07/17 10/24/24 History mcg tablet multivitamin (Multiple Vitamins 1 ea PO DAILY 02/07/17 10/24/24 Hi story tablet) biotin 5 mg capsule 5 mg PO DAILY 02/03/22 10/24/24 Hi story mirabegron 50 mg tablet,extended 50 mg PO 02/03/22 10/24/24 History release 24 hr (Myrbetriq) omeprazole 40 mg capsule,delayed 40 mg PO 02/03/22 10/24/24 History release risankizumab-rzaa 150 mg/mL 150 mg subcut Q12W 10/24/24 History subcutaneous syringe (Skyrizi) Have you fallen in the past year?: No Nurse's Note: Patient is here for a pre colon screening. She has been having abdominal pain and diarrhea. Switched to a bland diet and no other symptoms at this time. Patient states she has a over all feeling in her abdomen that something isn't right. PFSH Family History Mother Heart disease Hypertension Father CVA (cerebral vascular accident) Social History Smoking Status: Never smoker alcohol intake: current alcohol intake frequency: a few times a week Alcohol type: wine HPI HPI Chief Complaint: diarrhea Details: MICHELLE WAKEFIELD, is a 74 F who presents to the office today for establishment with [facility]. KUB 5.19.25 Bowel-gas pattern appears within limits. No gaseous distention of bowel or evidence of mass effect. Stool 5.20.25 lactoferrin positive, negative for enteric pathogens, c.Diff negative, O P and Giardia negative OV 5.30.25 Pt has been having abdominal pain and loose stools since October 07. The night it started she had sever abd pain and explosive loose stools she thought she may need to call the squad however she did not. SHe saw her PCP who ordered stool testing which was positive for wbc but not infection. Since then her pain has become less severe but she continues to have constant cramping abd pain. She is having loose stools over 5x per day. Sometimes they are soft and formed other times they are liquid. Prior to this, she had very normal bowel habits with a solid bm daily. She has tried imodium which did not alleviate her loose stools. Last colonoscopy was in 2016. She had a negative Cologuard test in 2022. She is worried about colon cancer as he from colon cancer. She denies daily use of NSAIDs. SHe is on omeprazole but has been on this for almost 30 years. ROS Const Constitutional: No anorexia, fatigue, fever(s), weight change or sleep problems Eyes Eyes: No change in vision ENT ENT: No abnormal hearing, difficulty swallowing, mouth lesions, tongue swelling or throat swelling Resp Respiratory: No cough or shortness of breath Cardio Cardiology: No chest pain at rest, chest pain with exertion, shortness of breath or dyspnea on exertion Gastro GI: Positive for abdominal pain and diarrhea; No difficulty swallowing Genitourinary-Female: No difficulty urinating or burning urination Musc Musculoskeletal: No joint pain, joint swelling, muscle weakness or decreased muscle mass Skin Skin: No hair loss in leg, yellowing of the eye, itchy eyes, rash, skin ulcer or skin swelling Neuro Neurology: No abnormal hearing, abnormal movements, confusion, unsteady gait/balance or memory loss Psych Psychiatric: No anxiety, No confusion and No memory loss Endo Endocrine: No fatigue or weight change Aller/Imm Allergy/Immunologic: No itchy eyes, throat swelling or tongue swelling Arun/Lymp Hematologic/Lymphatic: No easy bleeding, easy bruising or enlarged lymph nodes Exam Const General: cooperative Resp Effort Inspection: normal respiratory effort Cardio Rate: regular rate Rhythm: regula (more content not included)... [facility] Ova and Parasites 8623on OP OVA AND PARASITES EX AM, ROUTINE These results were obtained using wet preparation(s) and trichrome stained smear. This test does not include testing for Crytosporidium parvum, Cyclospora, or Microsporidia. One negative specimen does not rule out the possibility of a parasitic infection. ___ TESTING PERFORMED AT [facility]. ORIGINAL REPORT ON FILE IN LAB CONTAINS ADDITIONAL TEST SITE INFORMATION. ___ Ova/Parasite Exam NO OVA, CYSTS, OR PARASITES FOUND. [facility] Comment on above: Performed By: #### L 3400.8000, L100.0100, L500.3400 #### [facility] [address] [place], [address] H. PYLORI STOOL AGon 025 H PYLORI STL AG Negative Normal Negative [facility] Comment on above: Result Comment: Perf ormed at: [facility] [id number] [place] Hand: Cornell Blanchard PhD, Phone: [phone] Performed By: #### L 3400.8000, L100.0100, L500.3400 #### [facility] [address] [place], [address] CDIFF (PCR)on 10-14-2024 CDIFF A positive C. diffic ile molecular test does not differentiate between an active C. difficile infection and C. difficile colonization. Use clinical judgement and paired toxin/antigen testing to identify true infection and need for treatment. C diff DNA Spec Ql SANKET+probe Reference Range: Negative CepPhysician Referral Network (PRN)id GeneXpert: polymerase chain reaction (PCR) 027 027 [id number] Presumptive Negative *for epidemiolologic???use C. Diff PCR Negative- No toxigenic C. Diff Detected Normal [facility] Comment on above: Performed By: #### L 3400.8000, L100.0100, L500.3400 #### [facility] [address] [place], [address] Clostridium difficile detect ion by polymerase chain reactionOrdered By: Laurie Baker on 10-14-2024 C. difficile DNA SANKET+probe Ql (Unsp spec) [facility] ENTERIC PATHOGEN PANEL STOOL on 10-14-2024 EP PANEL Normal Reference Ran ge = Not Detected Nucleic acid amplification test method Not detected for Campylobacter group, Salmonella species, Shigella species, Vibrio Group, Yersinia enterocolitica, EHEC (Shiga Toxin 1, Shiga Toxin 2), Norovirus Gl/Gll, and Rotavirus A. Other common stool pathogens are not detected on this panel include: Aeromonas/Plesiomonas or parasites. Order testing for these organisms separately if suspected. This is an amplified DNA test which makes it both specific and sensitive. CAMPYLOBACTER Not Detected Norovirus Not Detected Rotavirus Not Detected Salmonella Not Detected Shiga Toxin Not Detected Shigella sp. Not Detected VIBRIO Not Detected Yersinia Not Detected Normal [facility] Comment on above: Performed By: #### L 3400.8000, L100.0100, L500.3400 #### [facility] [address] [place], [address] Stool Helicobacter pylori an tigen detection by immunoassayOrdered By: Laurie Baker on 10-14-2024 H. pylori Ag IA Ql (Stl) Negative Negative [facility] Comment on above: Performed at: [address] [id number] Director: Cornell Blanchard PhD, Phone: [phone] Stool Lactoferrin/WBCon 09-26 WBCST Normal Reference Ran ge = Negative Fecal WBC Lactoferrin A Positive: Fecal WBC Lactoferrin present A Normal [facility] Comment on above: Performed By: #### L 3400.8000, L100.0100, L500.3400 #### [facility] [address] [place], [address] Stool lactoferrin detection by immunoassayOrdered By: Laurie Baker on 10-14-2024 Lactoferrin IA Ql (Stl) [facility] Abdomen Single Viewon 2024 Abdomen Single View [facility] [address] [place] [address] Abdomen Single View MR#: [id number] Acct: [id number] Name: MICHELLE WAKEFIELD Rep #: [id number] : 1950 F 74 From: Ryan Bishop MD PCP: Dr. Rebecca Gonzales, Status: REG CLI Study: Abdomen Single View Date of Exam: 10/13/24 Exam# [id number] Ordering Dr: Laurie Baker PROFESSIONAL SKATER-C PROCEDURE: ABDOMEN SINGLE VIEW 10/13/2024 REASON FOR EXAM: DIARRHEA TECHNIQUE: Single view abdomen. Two total images to include the entire abdomen and pelvis COMPARISON: None available FINDINGS: Bowel-gas pattern appears within limits. No gaseous distention of bowel or evidence of mass effect. The visualized lung bases appear clear. Mild leftward appearing lumbar curvature. RAD/Abdomen Single View IMPRESSION: Bowel-gas pattern appears within limits. No gaseous distention of bowel or evidence of mass effect. Reading Location: [id number] CC: PHAN Baker; Dr. Rebecca Gonzales DO Friend Of The Court: Signed Normal [facility] Quantiferon TB-Gold+on 07-12 QFT MITOGEN YENI > 10.00 Normal . [facility] Comment on above: Performed By: #### L 3400.8000, L100.0100, L500.3400 #### [facility] [address] [place], [address] QFT NIL VALUE 0.01 IU/mL Normal . [facility] Comment on above: Performed By: #### L 3400.8000, L100.0100, L500.3400 #### [facility] [address] [place], [address] QFT TB GOLD+ Comment Normal . [facility] Comment on above: Result Comment: Moody tiFERON-TB Gold Plus is a qualitative indirect test for M tuberculosis infection (including disease) and is intended for use in conjunction with risk assessment, radiography, and other medical and diagnostic evaluations. The QuantiFERON-TB Gold Plus result is determined by subtracting the Nil value from either TB antigen (Ag) value. The Mitogen tube serves as a control for the test. Performed By: #### L 3400.8000, L100.0100, L500.3400 #### [facility] [address] [place], [address] QFT TB POS CRIT Negative Normal Negative [facility] Comment on above: Result Comment: No r esponse to M tuberculosis antigens detected. Infection with M tuberculosis is unlikely, but high risk individuals should be considered for additional testing (ATS/IDSA/CDC Clinical Practice Guidelines, 2017). The reference range is an Antigen minus Nil result of <0.35 IU/mL. The specimen received for QuantiFERON testing was incubated by the ordering institution. Specific procedures outlined in our Directory of Services and in the package insert for the QuantiFERON Gold (In Tube) test must be followed to enable for proper stimulation of cells for the production of interferon gamma. Chemiluminescence immunoassay methodology Performed at: [address] [id number] [place] Hand: Cornell Blanchard PhD, Phone: [phone] Performed By: #### L 3400.8000, L100.0100, L500.3400 #### [facility] [address] [place], [place], [address] (073) QFT TB1+ AG YENI 0.03 IU/mL Normal . [facility] Comment on above: Performed By: #### L 3400.8000, L100.0100, L500.3400 #### [facility] [address] [place], [address] QFT TB2+ AG YENI 0.01 IU/mL Normal . [facility] Comment on above: Performed By: #### L 3400.8000, L100.0100, L500.3400 #### [facility] [address] [place], [address] Absolute lymphocyte countOrd ered By: Agustin Jennings on 07-10-2024 Lymphocytes Auto (Unsp spec) [#/Vol] 1.70 10*3/uL 0.83-4.51 [facility] Absolute neutrophil countOrd ered By: Agustin Jennings on 07-10-2024 Neutrophils (Bld) [#/Vol] 6.8 10*3/uL 2.0-7.7 [facility] Automated lymphocyte count a s percentage of total leukocytesOrdered By: Agustin Jennings on 07-10-2024 Lymphocytes/100 WBC Auto (Unsp spec) 18.4 % Low 19-41 [facility] Basophil percentageOrdered B y: Agustin Jennings on 07-10-2024 Basophils/100 WBC (Bld) 0.8 % 0-1 [facility] Bilirubin directOrdered By: Agustin Jennings on 07-10-2024 Bilirubin.direct [Mass/Vol] 0.11 mg/dL 0.00-0.30 [facility] Bilirubin, totalOrdered By: Agustin Jennings on 07-10-2024 Bilirubin [Mass/Vol] 0.30 mg/dL 0.20-1.[address] [facility] Comment on above: For patients on eltr ombopag therapy, use of Dimension Eagar TBIL is not recommended. CBC W/Diff, Automatedon 06-28 Absolute Lymph 1.70 X10 3/uL Normal 0.83-4.51 [facility] Comment on above: Performed By: #### L 3400.8000, L100.0100, L500.3400 #### [facility] [address] [place], [address] Absolute Neut 6.8 X10 3/uL Normal 2.0-7.7 [facility] Comment on above: Performed By: #### L 3400.8000, L100.0100, L500.3400 #### [facility] [address] [place], [address] Basophils/100 WBC (Bld) 0.8 % Normal 0-1 [facility] Comment on above: Performed By: #### L 3400.8000, L100.0100, L500.3400 #### [facility] [address] [place], [address] Eosinophils/100 WBC (Bld) 1.0 % Normal 0-5 [facility] Comment on above: Performed By: #### L 3400.8000, L100.0100, L500.3400 #### [facility] [address] [place], [address] Erythrocyte distribution width (RBC) [Ratio] 14.0 % Normal 11.6-14.6 [facility] Comment on above: Performed By: #### L 3400.8000, L100.0100, L500.3400 #### [facility] [address] [place], [address] Hematocrit (Bld) [Volume fraction] 46.4 % Normal 37-47 [facility] Comment on above: Performed By: #### L 3400.8000, L100.0100, L500.3400 #### [facility] [address] [place], [address] Hemoglobin (Bld) [Mass/Vol] 14.6 g/dL Normal 12.0-15.0 [facility] Comment on above: Performed By: #### L 3400.8000, L100.0100, L500.3400 #### [facility] [address] [place], [address] IG% 0.300 Normal 0.0-0.9 [facility] Comment on above: Result Comment: IG% - Immature Granulocytes (promyelocytes, myelocytes and metamyelocytes) > 1% indicates that a LEFT SHIFT is Present. Performed By: #### L 3400.8000, L100.0100, L500.3400 #### [facility] [address] [place], [address] Lymphocytes/100 WBC (Bld) 18.4 % Low 19-41 [facility] Comment on above: Performed By: #### L 3400.8000, L100.0100, L500.3400 #### [facility] [address] [place], [address] MCH (RBC) [Entitic mass] 29.7 pg Normal 27.0-32.0 [facility] Comment on above: Performed By: #### L 3400.8000, L100.0100, L500.3400 #### [facility] [address] [place], [address] MCHC (RBC) [Mass/Vol] 31.5 g/dL Low 32-36 [facility] Comment on above: Performed By: #### L 3400.8000, L100.0100, L500.3400 #### [facility] [address] [place], [address] MCV (RBC) [Entitic vol] 94.3 fL Normal 81-99 [facility] Comment on above: Performed By: #### L 3400.8000, L100.0100, L500.3400 #### [facility] [address] [place], [address] Monocytes/100 WBC (Bld) 6.6 % Normal 0-10 [facility] Comment on above: Performed By: #### L 3400.8000, L100.0100, L500.3400 #### [facility] [address] [place], [address] Neutrophils/100 WBC (Bld) 72.9 % High 47-70 [facility] Comment on above: Performed By: #### L 3400.8000, L100.0100, L500.3400 #### [facility] [address] [place], [address] Nucleated RBC (Bld) [#/Vol] 0 10*3/uL Normal 0-5 [facility] Comment on above: Performed By: #### L 3400.8000, L100.0100, L500.3400 #### [facility] [address] [place], [address] Platelet mean volume (Bld) [Entitic vol] 10.4 fL Normal 6.2-12.0 [facility] Comment on above: Performed By: #### L 3400.8000, L100.0100, L500.3400 #### [facility] [address] [place], [address] Platelets (Bld) [#/Vol] 246 10*3/uL Normal 150-450 [facility] Comment on above: Performed By: #### L 3400.8000, L100.0100, L500.3400 #### [facility] [address] [place], [address] RBC (Bld) [#/Vol] 4.92 10*6/uL Normal 4.2-5.4 [facility] Comment on above: Performed By: #### L 3400.8000, L100.0100, L500.3400 #### [facility] [address] [place], [address] RDW SD 48.3 fl High 35.1-43.9 [facility] Comment on above: Performed By: #### L 3400.8000, L100.0100, L500.3400 #### [facility] [address] [place], [address] WBC (Bld) [#/Vol] 9.3 10*3/uL Normal 4.4-11.0 [facility] Comment on above: Performed By: #### L 3400.8000, L100.0100, L500.3400 #### [facility] [address] [place], [address] Eosinophil percentageOrdered By: Agustin Jennings on 07-10-2024 Eosinophils/100 WBC (Bld) 1.0 % 0-5 [facility] Erythrocyte distribution wid th ratioOrdered By: Agustin Jennings on 07-10-2024 Erythrocyte distribution width (RBC) [Ratio] 14.0 % 11.6-14.6 [facility] Erythrocyte distribution wid th standard deviationOrdered By: Agustin Jennings on 07-10-2024 Erythrocyte distribution width (RBC) [Ratio] 48.3 fl High 35.1-43.9 [facility] Hematocrit Auto (Bld) [Volum e fraction]Ordered By: Agustin Jennings on 07-10-2024 Hematocrit (Bld) [Volume fraction] 46.4 % 37-47 [facility] Hemoglobin measurementOrdere d By: Agustin Jennings on 07-10-2024 Hemoglobin (Bld) [Mass/Vol] 14.6 g/dL 12.0-15.0 [facility] Immature granulocytes/100 WB C Auto (Bld)Ordered By: Agustin Jennings on 07-10-2024 Immature granulocytes/100 WBC (Bld) 0.300 % 0.0-0.9 [facility] Comment on above: IG% - Immature Granu locytes (promyelocytes, myelocytes and metamyelocytes) > 1% indicates that a LEFT SHIFT is Present. Laboratory - Chemistry and C hemistry - challengeOrdered By: Agustin Jennings on 07-10-2024 AST [Catalytic activity/Vol] 15 U/L 15-37 [facility] Liver Profileon 07-10-2024 Albumin [Mass/Vol] 3.7 g/dL Normal 3.2-5.0 [facility] Comment on above: Performed By: #### L 3400.8000, L100.0100, L500.3400 #### [facility] [address] [place], [address] ALK P 109 U/L Normal 45-117 [facility] Comment on above: Performed By: #### L 3400.8000, L100.0100, L500.3400 #### [facility] [address] [place], [address] ALT [Catalytic activity/Vol] 30 U/L Normal 13-56 [facility] Comment on above: Performed By: #### L 3400.8000, L100.0100, L500.3400 #### [facility] [address] [place], [address] AST [Catalytic activity/Vol] 15 U/L Normal 15-37 [facility] Comment on above: Performed By: #### L 3400.8000, L100.0100, L500.3400 #### [facility] [address] [place], [address] Bilirubin [Mass/Vol] 0.30 mg/dL Normal 0.20-1.[address] [facility] Comment on above: Result Comment: For patients on eltrombopag therapy, use of Dimension Eagar TBIL is not recommended. Performed By: #### L 3400.8000, L100.0100, L500.3400 #### [facility] [address] [place], [address] Bilirubin.direct [Mass/Vol] 0.11 mg/dL Normal 0.00-0.30 [facility] Comment on above: Performed By: #### L 3400.8000, L100.0100, L500.3400 #### [facility] [address] [place], [address] Globulin (S) [Mass/Vol] 3.7 g/dL Normal 2.2-4.2 [facility] Comment on above: Performed By: #### L 3400.8000, L100.0100, L500.3400 #### [facility] [address] [place], [address] T PROT 7.4 g/dL Normal 6.4-8.2 [facility] Comment on above: Performed By: #### L 3400.8000, L100.0100, L500.3400 #### [facility] [address] [place], [address] MCV (mean corpuscular volume ) determinationOrdered By: Agustin Jennings on 07-10-2024 MCV (RBC) [Entitic vol] 94.3 fL 81-99 [facility] Mean corpuscular hemoglobin (MCH) determinationOrdered By: Agustin Jeninngs on 07-10-2024 MCH (RBC) [Entitic mass] 29.7 pg 27.0-32.0 [facility] Mean corpuscular hemoglobin concentration (MCHC) determinationOrdered By: Agustin Jennings on 07-10-2024 MCHC (RBC) [Mass/Vol] 31.5 g/dL Low 32-36 [facility] Mean platelet volume determi nationOrdered By: Agustin Jennings on 07-10-2024 Platelet mean volume (Bld) [Entitic vol] 10.4 fL 6.2-12.0 [facility] Monocyte percentageOrdered B y: Agustin Jennings on 07-10-2024 Monocytes/100 WBC (Bld) 6.6 % 0-10 [facility] Neutrophil percentageOrdered By: Agustin Jennings on 07-10-2024 Neutrophils/100 WBC (Bld) 72.9 % High 47-70 [facility] Nucleated red blood cell per centageOrdered By: Agustin Jennings on 07-10-2024 Nucleated RBC/100 WBC (Bld) [Ratio] 0 % 0-5 [facility] Platelet countOrdered By: José Luis Jennings on 07-10-2024 Platelets (Bld) [#/Vol] 246 10*3/uL 150-450 [facility] Qualitative QuantiFERON-TB g old in tube testOrdered By: Agustin Jennings on 07-10-2024 M. tuberculosis tuberculin stim IFN-g Ql (Bld) 0.03 IU/mL . [facility] RBC Auto (Bld) [#/Vol]Ordere d By: Agustin Jennings on 07-10-2024 RBC (Bld) [#/Vol] 4.92 10*6/uL 4.2-5.4 [facility] Serum globulin measurementOr dered By: Agustin Jennings on 07-10-2024 Globulin (S) [Mass/Vol] 3.7 g/dL 2.2-4.2 [facility] Serum or plasma alanine swanson otransferase (ALT) measurementOrdered By: Agustin Jennings on 07-10-2024 ALT [Catalytic activity/Vol] 30 U/L 13-56 [facility] Serum or plasma albumin christie urement (mass/volume)Ordered By: Agustin Jennings on 07-10-2024 Albumin [Mass/Vol] 3.7 g/dL 3.2-5.0 [facility] Serum or plasma alkaline luisito sphatase measurementOrdered By: Agustin Jennings on 07-10-2024 ALP [Catalytic activity/Vol] 109 U/L 45-117 [facility] Total proteinOrdered By: Aime Jennings on 07-10-2024 Protein [Mass/Vol] 7.4 g/dL 6.4-8.2 [facility] White blood cell (WBC) count Ordered By: Agustin Jennings on 07-10-2024 WBC (Bld) [#/Vol] 9.3 10*3/uL 4.4-11.0 [facility] Dexa Bone Density Studyon Dexa Bone Density Study [facility] Imaging Services [address] [place] [address] Dexa Bone Density Study MR#: [id number] Acct: [id number] Name: MICHELLE WAKEFIELD Rep #: [id number] : 1950 F 73 From: Ryan Shah MD PCP: Dr. Rebecca Gonzales DO Status: REG CLI Study: Dexa Bone Density Study Date of Exam: 05/27/24 Exam# [id number] Ordering Dr: Rebecca Gonzales DO [id number] STUDY: DUAL ENERGY X-RAY ABSORPTIOMETRY / DXA REASON FOR EXAM: Female, 73 years old. Postmenopausal screening TECHNIQUE: Bone Mineral Density (BMD) measurements of lumbar spine and bilateral hips were obtained. COMPARISON: 2011 and 2009 FINDINGS: Lumbar Spine (L1-L4): g/cm2 (0.803) / T-score (-2.2) / Z-score (0.2) When compared to the previous study, the bone mineral density of the lumbar spine has decreased by 5.6% Left Femur Total: g/cm2 (0.781) / T-score (-1.3) / Z-score (0.5) Left Femoral Neck: g/cm2 (0.532) / T-score (-2.9) / Z-score (-0.7) Right Femur Total: g/cm2 (0.761) / T-score (-1.5) / Z-score (0.3) Right Femoral Neck: g/cm2 (0.597) / T-score (-2.3) / Z-score (-0.2) When compared to the previous study, the bone mineral density of the left femur has increased by 5.7%, while the right femur has decreased by 1% BD/Dexa Bone Density Study IMPRESSION: The patient is considered osteoporotic as outlined below according to World Markos Organization (WHO) criteria with a high fracture risk. 10 year fracture risk: Major osteoporotic fracture 14%, hip fracture 4% Reference Information: The T-score is the number of standard deviations above or below the standard which is normal for young adults at their peak bone mineral density. The World Health Organization (WHO) interprets the T-scores as follows: Above -1 Normal bone density Between -1 and -2.5 Osteopenia Equal to / or below -2.5 Osteoporosis As a practical clinical guideline, osteopenia may be graded as follows: Mild -1 through -1.5 Moderate -1.6 through -2.0 Severe -2.1 through -2.4 The Z-score is the number of standard deviations above or below age-matched controls. A Z-score of less than -1.5 would be considered abnormal. References: 1. NIH Osteoporosis and Related Bone Diseases www osteo.org 2. International Society for Clinical Densitometry www iscd.org 3. National Osteoporosis Foundation www nof.org Electronically Signed: Eugenio Shah MD at 11:31 EST , CC: Dr. Rebecca Gonzales, Friend Of The Court: Signed Normal [facility] SCRN MAMM (CAD)W/ADRIANA Styles n 05-27-2024 SCRN MAMM (CAD)W/ADRIANA PRIETO [facility] Imaging Services [address] [place] [address] SCRN MAMM (CAD)W/ADRIANA MOREAU MR#: [id number] Acct: [id number] Name: MICHELLE WAKEFIELD BARBIE Rep #: [id number] : 1950 F 73 From: Yasmani Lee MD PCP: Dr. Rebecca Gonzales DO Status: REG CLI Study: SCRN MAMM (CAD)W/ADRIANA BILAT Date of Exam: 04/29 06/20 Exam# [id number] Ordering Dr: Rebecca Gonzales DO [id number] MAMMOGRAPHY - BILATERAL SCREENING 3-D TOMOSYNTHESIS REASON FOR EXAM: Female, 73 years old. SCREENING PERTINENT HISTORY: No significant family history. TECHNIQUE: 2-D mammograms and 3-D Tomosynthesis of the breast (s) were performed. CAD was performed. COMPARISON: 05/10/2023 FINDINGS: The breast composition is composed of scattered fibroglandular density. Scattered benign calcifications are seen. No dense spiculated masses or suspicious microcalcifications are identified. No architectural distortion is identified. There is no skin thickening or retraction. There has been no significant change since the prior study. BI/SCRN MAMM (CAD)W/ADRIANA BILAT IMPRESSION: No mammographic signs of malignancy. Routine yearly mammograms recommended. ASSESSMENT CATEGORY: BIRADS Category 1: Negative. A letter regarding these results will be sent to the patient by the facility within 30 days. FOLLOW UP RECOMMENDATION: Yearly follow up mammogram recommended. (A) Approximately 10% of breast cancers are not detected by mammography. A normal mammogram should not delay biopsy of a clinically suspicious abnormality. Electronically Signed: Yasmani Lee MD at 20:01 EST , CC: Dr. Rebecca Gonzales DO Friend Of The Court: Signed Normal [facility] CBC W/Diff, Automatedon 03-28 Absolute Lymph 1.53 X10 3/uL Normal 0.83-4.51 [facility] Comment on above: Performed By: #### L 100.0100, L501.78329, L503.0105, L501.9520, L500.4100, L500.4050, L501.9985 #### [facility] [address] [place], [address] Absolute Neut 4.7 X10 3/uL Normal 2.0-7.7 [facility] Comment on above: Performed By: #### L 100.0100, L501.76780, L503.0105, L501.9520, L500.4100, L500.4050, L501.9985 #### [facility] [address] [place], [address] Basophils/100 WBC (Bld) 0.7 % Normal 0-1 [facility] Comment on above: Performed By: #### L 100.0100, L501.12931, L503.0105, L501.9520, L500.4100, L500.4050, L501.9985 #### [facility] [address] [place], [address] Eosinophils/100 WBC (Bld) 1.3 % Normal 0-5 [facility] Comment on above: Performed By: #### L 100.0100, L501.50779, L503.0105, L501.9520, L500.4100, L500.4050, L501.9985 #### [facility] [address] [place], [address] Erythrocyte distribution width (RBC) [Ratio] 13.7 % Normal 11.6-14.6 [facility] Comment on above: Performed By: #### L 100.0100, L501.97342, L503.0105, L501.9520, L500.4100, L500.4050, L501.9985 #### [facility] [address] [place], [address] Hematocrit (Bld) [Volume fraction] 44.2 % Normal 37-47 [facility] Comment on above: Performed By: #### L 100.0100, L501.82068, L503.0105, L501.9520, L500.4100, L500.4050, L501.9985 #### [facility] [address] [place], [address] Hemoglobin (Bld) [Mass/Vol] 14.2 g/dL Normal 12.0-15.0 [facility] Comment on above: Performed By: #### L 100.0100, L501.93010, L503.0105, L501.9520, L500.4100, L500.4050, L501.9985 #### [facility] [address] [place], [address] IG% 0.400 Normal 0.0-0.9 [facility] Comment on above: Result Comment: IG% - Immature Granulocytes (promyelocytes, myelocytes and metamyelocytes) > 1% indicates that a LEFT SHIFT is Present. Performed By: #### L 100.0100, L501.11569, L503.0105, L501.9520, L500.4100, L500.4050, L501.9985 #### [facility] [address] [place], [address] Lymphocytes/100 WBC (Bld) 22.3 % Normal 19-41 [facility] Comment on above: Performed By: #### L 100.0100, L501.08976, L503.0105, L501.9520, L500.4100, L500.4050, L501.9985 #### [facility] [address] [place], [address] MCH (RBC) [Entitic mass] 29.9 pg Normal 27.0-32.0 [facility] Comment on above: Performed By: #### L 100.0100, L501.30133, L503.0105, L501.9520, L500.4100, L500.4050, L501.9985 #### [facility] [address] [place], [address] MCHC (RBC) [Mass/Vol] 32.1 g/dL Normal 32-36 [facility] Comment on above: Performed By: #### L 100.0100, L501.27358, L503.0105, L501.9520, L500.4100, L500.4050, L501.9985 #### [facility] [address] [place], [address] MCV (RBC) [Entitic vol] 93.1 fL Normal 81-99 [facility] Comment on above: Performed By: #### L 100.0100, L501.66289, L503.0105, L501.9520, L500.4100, L500.4050, L501.9985 #### [facility] [address] [place], [address] Monocytes/100 WBC (Bld) 6.1 % Normal 0-10 [facility] Comment on above: Performed By: #### L 100.0100, L501.09531, L503.0105, L501.9520, L500.4100, L500.4050, L501.9985 #### [facility] [address] [place], [address] Neutrophils/100 WBC (Bld) 69.2 % Normal 47-70 [facility] Comment on above: Performed By: #### L 100.0100, L501.08747, L503.0105, L501.9520, L500.4100, L500.4050, L501.9985 #### [facility] [address] [place], [address] Nucleated RBC (Bld) [#/Vol] 0 10*3/uL Normal 0-5 [facility] Comment on above: Performed By: #### L 100.0100, L501.90624, L503.0105, L501.9520, L500.4100, L500.4050, L501.9985 #### [facility] [address] [place], [address] Platelet mean volume (Bld) [Entitic vol] 10.9 fL Normal 6.2-12.0 [facility] Comment on above: Performed By: #### L 100.0100, L501.23194, L503.0105, L501.9520, L500.4100, L500.4050, L501.9985 #### [facility] [address] [place], [address] Platelets (Bld) [#/Vol] 212 10*3/uL Normal 150-450 [facility] Comment on above: Performed By: #### L 100.0100, L501.07003, L503.0105, L501.9520, L500.4100, L500.4050, L501.9985 #### [facility] [address] [place], [address] RBC (Bld) [#/Vol] 4.75 10*6/uL Normal 4.2-5.4 [facility] Comment on above: Performed By: #### L 100.0100, L501.01205, L503.0105, L501.9520, L500.4100, L500.4050, L501.9985 #### [facility] [address] [place], [address] RDW SD 47.0 fl High 35.1-43.9 [facility] Comment on above: Performed By: #### L 100.0100, L501.06540, L503.0105, L501.9520, L500.4100, L500.4050, L501.9985 #### [facility] [address] [place], [address] WBC (Bld) [#/Vol] 6.9 10*3/uL Normal 4.4-11.0 [facility] Comment on above: Performed By: #### L 100.0100, L501.24994, L503.0105, L501.9520, L500.4100, L500.4050, L501.9985 #### [facility] [address] [place], [address] Comprehensive Metabolic Prof ilon 04-10-2024 Albumin [Mass/Vol] 3.8 g/dL Normal 3.2-5.0 [facility] Comment on above: Performed By: #### L 100.0100, L501.95098, L503.0105, L501.9520, L500.4100, L500.4050, L501.9985 #### [facility] [address] [place], [address] Albumin/Globulin [Mass ratio] 1.2 {ratio} Normal 0.9-2.4 [facility] Comment on above: Performed By: #### L 100.0100, L501.79085, L503.0105, L501.9520, L500.4100, L500.4050, L501.9985 #### [facility] [address] [place], [address] ALK P 66 U/L Normal 45-117 [facility] Comment on above: Performed By: #### L 100.0100, L501.98694, L503.0105, L501.9520, L500.4100, L500.4050, L501.9985 #### [facility] [address] [place], [address] ALT [Catalytic activity/Vol] 29 U/L Normal 13-56 [facility] Comment on above: Performed By: #### L 100.0100, L501.94210, L503.0105, L501.9520, L500.4100, L500.4050, L501.9985 #### [facility] [address] [place], [address] AST [Catalytic activity/Vol] 19 U/L Normal 15-37 [facility] Comment on above: Performed By: #### L 100.0100, L501.24796, L503.0105, L501.9520, L500.4100, L500.4050, L501.9985 #### [facility] [address] [place], [address] Bilirubin [Mass/Vol] 0.40 mg/dL Normal 0.20-1.[address] [facility] Comment on above: Result Comment: For patients on eltrombopag therapy, use of Dimension Eagar TBIL is not recommended. Performed By: #### L 100.0100, L501.64898, L503.0105, L501.9520, L500.4100, L500.4050, L501.9985 #### [facility] [address] [place], [address] BUN/CRE 20.1 RATIO High 10-20 [facility] Comment on above: Performed By: #### L 100.0100, L501.61906, L503.0105, L501.9520, L500.4100, L500.4050, L501.9985 #### [facility] [address] [place], [address] CA,Total 9.0 mg/dL Normal 8.5-10.1 [facility] Comment on above: Performed By: #### L 100.0100, L501.52619, L503.0105, L501.9520, L500.4100, L500.4050, L501.9985 #### [facility] [address] [place], [address] Chloride [Moles/Vol] 109 mmol/L High 98-[address] [facility] Comment on above: Performed By: #### L 100.0100, L501.79557, L503.0105, L501.9520, L500.4100, L500.4050, L501.9985 #### [facility] [address] [place], [address] CO2 [Moles/Vol] 28.0 mmol/L Normal 21.0-32.0 [facility] Comment on above: Performed By: #### L 100.0100, L501.03893, L503.0105, L501.9520, L500.4100, L500.4050, L501.9985 #### [facility] [address] [place], [place], [id number] (516) Creatinine [Mass/Vol] 0.94 mg/dL Normal 0.55-1.02 [facility] Comment on above: Result Comment: The validity of the calculated GFR GFRAA in patients over 70 years has not been determined. Clinical correlation is essential. Performed By: #### L 100.0100, L501.85358, L503.0105, L501.9520, L500.4100, L500.4050, L501.9985 #### [facility] [address] [place], [place], [id number] EST GFR - AA 74 mL/min Normal >60 [facility] Comment on above: Result Comment: Afri can Mosoth[place] GFR Calc Performed By: #### L 100.0100, L501.43213, L503.0105, L501.9520, L500.4100, L500.4050, L501.9985 #### [facility] [address] [place], [address] GAP 4 Low 5-15 [facility] Comment on above: Performed By: #### L 100.0100, L501.75464, L503.0105, L501.9520, L500.4100, L500.4050, L501.9985 #### [facility] [address] [place], [address] GFR/1.73 sq M.predicted among non-blacks MDRD (S/P/Bld) [Vol rate/Area] 61 mL/min/{1.73_m2} Normal >60 [facility] Comment on above: Result Comment: Non- GFR Calc Performed By: #### L 100.0100, L501.79186, L503.0105, L501.9520, L500.4100, L500.4050, L501.9985 #### [facility] [address] [place], [address] Globulin (S) [Mass/Vol] 3.3 g/dL Normal 2.2-4.2 [facility] Comment on above: Performed By: #### L 100.0100, L501.29734, L503.0105, L501.9520, L500.4100, L500.4050, L501.9985 #### [facility] [address] [place], [address] Glucose [Mass/Vol] 96 mg/dL Normal 74-106 [facility] Comment on above: Performed By: #### L 100.0100, L501.23360, L503.0105, L501.9520, L500.4100, L500.4050, L501.9985 #### [facility] [address] [place], [address] Potassium [Moles/Vol] 4.1 mmol/L Normal 3.5-5.1 [facility] Comment on above: Performed By: #### L 100.0100, L501.83400, L503.0105, L501.9520, L500.4100, L500.4050, L501.9985 #### [facility] [address] [place], [address] Sodium [Moles/Vol] 141 mmol/L Normal 136-145 [facility] Comment on above: Performed By: #### L 100.0100, L501.11591, L503.0105, L501.9520, L500.4100, L500.4050, L501.9985 #### [facility] [address] [place], [address] T PROT 7.1 g/dL Normal 6.4-8.2 [facility] Comment on above: Performed By: #### L 100.0100, L501.90879, L503.0105, L501.9520, L500.4100, L500.4050, L501.9985 #### [facility] [address] [place], [address] Urea nitrogen [Mass/Vol] 19 mg/dL High 7-18 [facility] Comment on above: Performed By: #### L 100.0100, L501.39030, L503.0105, L501.9520, L500.4100, L500.4050, L501.9985 #### [facility] [address] [place], [address] Free T3on 04-10-2024 Free T3 [Mass/Vol] 3.1 pg/mL Normal 2.18-3.98 [facility] Comment on above: Performed By: #### L 100.0100, L501.96604, L503.0105, L501.9520, L500.4100, L500.4050, L501.9985 #### [facility] [address] [place], [address] Hemoglobin A1con 04-10-2024 HbA1c (Bld) [Mass fraction] 6.0 % High 3.8-5.6 [facility] Comment on above: Result Comment: Norm al < 5.7 % Prediabetic 5.7 - 6.4 % Diabetic >or= 6.5 % Please note range changes. Performed By: #### L 100.0100, L501.28230, L503.0105, L501.9520, L500.4100, L500.4050, L501.9985 #### [facility] [address] [place], [address] Lipid Profileon 04-10-2024 Cholesterol [Mass/Vol] 168 mg/dL Normal 200 [facility] Comment on above: Result Comment: <200 mg/dL Desirable 200-240 mg/dL Borderline >240 mg/dL High Risk Performed By: #### L 100.0100, L501.83065, L503.0105, L501.9520, L500.4100, L500.4050, L501.9985 #### [facility] [address] [place], [address] Cholesterol in HDL [Mass/Vol] 51 mg/dL Normal [facility] Comment on above: Result Comment: The drugs N-Acetylcysteine and Metamizole may falsely depress this assay. Reference Range HDL <40 mg/dL Low HDL Cholesterol HDL >or= 60 mg/dL High HDL Cholesterol Performed By: #### L 100.0100, L501.01411, L503.0105, L501.9520, L500.4100, L500.4050, L501.9985 #### [facility] [address] [place], [address] Cholesterol in LDL [Mass/Vol] 84 mg/dL Normal 0-130 [facility] Comment on above: Performed By: #### L 100.0100, L501.41864, L503.0105, L501.9520, L500.4100, L500.4050, L501.9985 #### [facility] [address] [place], [address] Cholesterol in VLDL [Mass/Vol] 33 mg/dL Normal 5-40 [facility] Comment on above: Performed By: #### L 100.0100, L501.31916, L503.0105, L501.9520, L500.4100, L500.4050, L501.9985 #### [facility] [address] [place], [address] Triglyceride [Mass/Vol] 167 mg/dL Normal [facility] Comment on above: Result Comment: The drugs N-Acetylcysteine and Metamizole may falsely depress this assay. Serum Triglycerides Reference Interval Normal <150 mg/dL Borderline high 150 - 199 mg/dL High 200 - 499 mg/dL Very High > or = 500 mg/dL Performed By: #### L 100.0100, L501.37948, L503.0105, L501.9520, L500.4100, L500.4050, L501.9985 #### [facility] [address] [place], [place], [id number] Thyroid Stim Hormone (TSH)on 04-10-2024 TSH 0.432 uIU/mL Normal 0.358-3.740 [facility] Comment on above: Performed By: #### L 100.0100, L501.68701, L503.0105, L501.9520, L500.4100, L500.4050, L501.9985 #### [facility] [address] [place], [place], [id number] Vitamin B12on 04-10-2024 Cobalamin (Vitamin B12) [Mass/Vol] 395 pg/mL Normal 211-911 [facility] Comment on above: Performed By: #### L 100.0100, L501.48498, L503.0105, L501.9520, L500.4100, L500.4050, L501.9985 #### [facility] [address] [place], [address] Absolute lymphocyte countOrd ered By: Agustin Jennings on 07-09-2023 Lymphocytes Auto (Unsp spec) [#/Vol] 1.56 10*3/uL 0.83-4.51 [facility] Automated lymphocyte count a s percentage of total leukocytesOrdered By: Agustin Jennings on 07-09-2023 Lymphocytes/100 WBC Auto (Unsp spec) 23.6 % 19-41 [facility] Basophil percentageOrdered B y: Agustin Jennings on 07-09-2023 Basophils/100 WBC (Bld) 0.8 % 0-1 [facility] Bilirubin [Mass/Vol] 0.30 mg/dL 0.20-1.[address] [facility] Comment on above: For patients on eltr ombopag therapy, use of Dimension Eagar TBIL is not recommended. Eosinophils/100 WBC (Bld) 1.5 % 0-5 [facility] Hemoglobin (Bld) [Mass/Vol] 14.0 g/dL 12.0-15.0 [facility] Monocytes/100 WBC (Bld) 7.3 % 0-10 [facility] Neutrophils (Bld) [#/Vol] 4.4 10*3/uL 2.0-7.7 [facility] Neutrophils/100 WBC (Bld) 66.5 % 47-70 [facility] Protein [Mass/Vol] 6.9 g/dL 6.4-8.2 [facility] WBC (Bld) [#/Vol] 6.6 10*3/uL 4.4-11.0 [facility] Determination of erythrocyte mean corpuscular volume (MCV)Ordered By: Agustin Jennings on 07-09-2023 MCV (RBC) [Entitic vol] 92.2 fL 81-99 [facility] Direct bilirubinOrdered By: Agustin Jennings on 07-09-2023 Bilirubin.direct [Mass/Vol] 0.08 mg/dL 0.00-0.30 [facility] Erythrocyte distribution wid th ratioOrdered By: Agustin Jennings on 07-09-2023 Erythrocyte distribution width (RBC) [Ratio] 13.8 % 11.6-14.6 [facility] Erythrocyte distribution wid th standard deviationOrdered By: Agustin Jennings on 07-09-2023 Erythrocyte distribution width (RBC) [Entitic vol] 47.1 fL 35.1-43.9 [facility] Hematocrit Auto (Bld) [Volum e fraction]Ordered By: Agustin Jennings on 07-09-2023 Hematocrit (Bld) [Volume fraction] 43.5 % 37-47 [facility] Immature granulocytes/100 WB C Auto (Bld)Ordered By: Agustin Jennings on 07-09-2023 Immature granulocytes/100 WBC (Bld) 0.300 % 0.0-0.9 [facility] Comment on above: IG% - Immature Granu locytes (promyelocytes, myelocytes and metamyelocytes) > 1% indicates that a LEFT SHIFT is Present. Laboratory - Chemistry and C hemistry - challengeOrdered By: Agustin Jennings on 07-09-2023 ALP [Catalytic activity/Vol] 65 U/L 45-117 [facility] ALT [Catalytic activity/Vol] 26 U/L 13-56 [facility] Globulin (S) [Mass/Vol] 3.2 g/dL 2.2-4.2 [facility] - Hematology and Cell countsOrdered By: Agustin Jennings on 07-09-2023 MCH (RBC) [Entitic mass] 29.7 pg 27.0-32.0 [facility] MCHC (RBC) [Mass/Vol] 32.2 g/dL 32-36 [facility] Nucleated RBC/100 WBC (Bld) [Ratio] 0 % 0-5 [facility] Platelet mean volume (Bld) [Entitic vol] 10.9 fL 6.2-12.0 [facility] Platelets (Bld) [#/Vol] 206 10*3/uL 150-450 [facility] Qualitative QuantiFERON-TB g old in tube testOrdered By: Agustin Jennings on 07-09-2023 M. tuberculosis tuberculin stim IFN-g Ql (Bld) 0.03 IU/mL . [facility] RBC Auto (Bld) [#/Vol]Ordere d By: Agustin Jennings on 07-09-2023 RBC (Bld) [#/Vol] 4.72 10*6/uL 4.2-5.4 [facility] Thin prep Papanicolaou smear with manual screeningOrdered By: Agustin Jennings on 07-09-2023 Thin prep Papanicolaou smear with manual screening 3.7 g/dL 3.2-5.0 [facility] Thin prep Papanicolaou smear with manual screening 18 U/L 15-37 [facility] Thin prep Papanicolaou smear with manual screening Comment . [facility] Comment on above: QuantiFERON-TB Gold Plus is a qualitative indirect test forM tuberculosis infection (including disease) and isintended for use in conjunction with risk assessment,radiography, and other medical and diagnostic evaluations.The QuantiFERON-TB Gold Plus result is determined bysubtracting the Nil value from either TB antigen (Ag)value. The Mitogen tube serves as a control for the test. Thin prep Papanicolaou smear with manual screening 0.02 IU/mL . [facility] Thin prep Papanicolaou smear with manual screening 0.01 IU/mL . [facility] Thin prep Papanicolaou smear with manual screening > 10.00 IU/mL . [facility] Thin prep Papanicolaou smear with manual screening Negative Negative [facility] Comment on above: No response to M tub erculosis antigens detected.Infection with M tuberculosis is unlikely, but high riskindividuals should be considered for additional testing(ATS/IDSA/CDC Clinical Practice Guidelines, 2017). Thereference range is an Antigen minus Nil result of <0.35IU/mL.The specimen received for QuantiFERON testing was incubatedby the ordering institution. Specific procedures outlinedin our Directory of Services and in the package insert forthe QuantiFERON Gold (In Tube) test must be followed toenable for proper stimulation of cells for the productionof interferon gamma. Chemiluminescence immunoassaymethodologyPerformed at: [facility] [address] [id number] Director: Cornell Blanchard PhD, Phone: [phone] Absolute lymphocyte countOrd ered By: Rebecca Gonzales on 04-10-2023 Lymphocytes Auto (Unsp spec) [#/Vol] 1.35 10*3/uL 0.83-4.51 [facility] Basophil percentageOrdered B y: Rebecca Gonzales on 04-10-2023 Basophils/100 WBC (Bld) 1.2 % 0-1 [facility] Bilirubin [Mass/Vol] 0.40 mg/dL 0.20-1.[address] [facility] Comment on above: For patients on eltr ombopag therapy, use of Dimension Eagar TBIL is not recommended. Chloride [Moles/Vol] 108 mmol/L 98-[address] [facility] Cholesterol [Mass/Vol] 160 mg/dL <200 [facility] Comment on above: <200 mg/dL Desirable 200-240 mg/dL Borderline >240 mg/dL High Risk Eosinophils/100 WBC (Bld) 2.2 % 0-5 [facility] Glucose [Mass/Vol] 99 mg/dL 74-106 [facility] Neutrophils (Bld) [#/Vol] 4.9 10*3/uL 2.0-7.7 [facility] Neutrophils/100 WBC (Bld) 70.6 % 47-70 [facility] Potassium [Moles/Vol] 4.4 mmol/L 3.5-5.1 [facility] Protein [Mass/Vol] 6.9 g/dL 6.4-8.2 [facility] Sodium [Moles/Vol] 141 mmol/L 136-145 [facility] Triglyceride [Mass/Vol] 185 mg/dL <199 [facility] Comment on above: The drugs N-Acetylcy steine and Metamizole may falsely depress this assay.Serum Triglycerides Reference Interval Normal <150 mg/dL Borderline high 150 - 199 mg/dL High 200 - 499 mg/dL Very High > or = 500 mg/dL WBC (Bld) [#/Vol] 6.9 10*3/uL 4.4-11.0 [facility] Blood erythrocytes count (nu mber/volume)Ordered By: Rebecca Gonzales on 04-10-2023 RBC (Bld) [#/Vol] 4.66 10*6/uL 4.2-5.4 [facility] Blood hemoglobin measurement (mass/volume)Ordered By: Rebecca Gonzales on 04-10-2023 Hemoglobin (Bld) [Mass/Vol] 13.9 g/dL 12.0-15.0 [facility] Blood lymphocytes/100 leukoc ytesOrdered By: Rebecca Gonzales on 04-10-2023 Lymphocytes/100 WBC (Bld) 19.5 % 19-41 [facility] Blood monocytes/100 leukocyt esOrdered By: Rebecca Gonzales on 04-10-2023 Monocytes/100 WBC (Bld) 6.2 % 0-10 [facility] Blood platelet mean volumeOr dered By: Rebecca Gonzales on 04-10-2023 Platelet mean volume (Bld) [Entitic vol] 10.9 fL 6.2-12.0 [facility] Determination of erythrocyte mean corpuscular volume (MCV)Ordered By: Rebecca Gonzales on 04-10-2023 MCV (RBC) [Entitic vol] 95.5 fL 81-99 [facility] Hematocrit Auto (Bld) [Volum e fraction]Ordered By: Rebecca Gonzales on 04-10-2023 Hematocrit (Bld) [Volume fraction] 44.5 % 37-47 [facility] - Chemistry and C hemistry - challengeOrdered By: Rebecca Gonzales on 04-10-2023 ALP [Catalytic activity/Vol] 61 U/L 45-117 [facility] ALT [Catalytic activity/Vol] 25 U/L 13-56 [facility] CO2 [Moles/Vol] 29.0 mmol/L 21.0-32.0 [facility] Globulin (S) [Mass/Vol] 3.5 g/dL 2.2-4.2 [facility] Urea nitrogen/Creatinine [Mass ratio] 14.4 mg/mg 10-20 [facility] - Hematology and Cell countsOrdered By: Rebecca Gonzales on 04-10-2023 Erythrocyte distribution width (RBC) [Entitic vol] 48.5 fL 35.1-43.9 [facility] Erythrocyte distribution width (RBC) [Ratio] 13.9 % 11.6-14.6 [facility] Immature granulocytes/100 WBC (Bld) 0.300 % 0.0-0.9 [facility] Comment on above: IG% - Immature Granu locytes (promyelocytes, myelocytes and metamyelocytes) > 1% indicates that a LEFT SHIFT is Present. MCH (RBC) [Entitic mass] 29.8 pg 27.0-32.0 [facility] Nucleated RBC/100 WBC (Bld) [Ratio] 0 % 0-5 [facility] MCHC Auto (RBC) [Mass/Vol]Or dered By: Rebecca Gonzales on 04-10-2023 MCHC (RBC) [Mass/Vol] 31.2 g/dL 32-36 [facility] No Panel InformationOrdered By: Rebecca Gonzales on 04-10-2023 Estimated GFR (MDRD) Amer 78 mL/min >60 [facility] Comment on above: GFR Calc Estimated GFR (MDRD) Non-Af Amer 65 mL/min >60 [facility] Comment on above: Non- GFR Calc Free Triiodothyronine (T3) pg/dL 2.8 pg/mL 2.18-3.98 [facility] Thyroid Stimulating Hormone (TSH) 0.53 uIU/mL 0.358-3.74 [facility] Platelets bldOrdered By: Chari Gonzales on 04-10-2023 Platelets (Bld) [#/Vol] 225 10*3/uL 150-450 [facility] Serum or plasma albumin christie urement (mass/volume)Ordered By: Rebecca Gonzales on 04-10-2023 Albumin [Mass/Vol] 3.4 g/dL 3.2-5.0 [facility] Serum or plasma albumin/glob ulin mass ratioOrdered By: Rebecca Gonzales on 04-10-2023 Albumin/Globulin [Mass ratio] 1.0 {ratio} 0.9-2.4 [facility] Serum or plasma calcium christie urement (mass/volume)Ordered By: Rebecca Gonzales on 04-10-2023 Calcium [Mass/Vol] 8.6 mg/dL 8.5-10.1 [facility] Serum or plasma cholesterol in HDL measurement (mass/volume)Ordered By: Rebecca Gonzales on 04-10-2023 Cholesterol in HDL [Mass/Vol] 48 mg/dL >40 [facility] Comment on above: The drugs N-Acetylcy steine and Metamizole may falsely depress this assay. Reference Range HDL <40 mg/dL Low HDL Cholesterol HDL >or= 60 mg/dL High HDL Cholesterol Serum or plasma cholesterol in VLDL measurement (mass/volume)Ordered By: Rebecca Gonzales on 04-10-2023 Cholesterol in VLDL [Mass/Vol] 37 mg/dL 5-40 [facility] Serum or plasma creatinine m easurement (mass/volume)Ordered By: Rebecca Gonzales on 04-10-2023 Creatinine [Mass/Vol] 0.90 mg/dL 0.55-1.02 [facility] Comment on above: The validity of the calculated GFR & GFRAA in patients over 70 years has not been determined. Clinical correlation is essential. Serum or plasma low density lipoprotein (LDL) cholesterol measurement (mass/volume)Ordered By: Rebecca Gonzales on 04-10-2023 Cholesterol in LDL [Mass/Vol] 75 mg/dL 0-130 [facility] Serum or plasma urea nitroge n measurement (mass/volume)Ordered By: Rebecca Gonzales on 04-10-2023 Urea nitrogen [Mass/Vol] 13 mg/dL 7-18 [facility] Thin prep Papanicolaou smear with manual screeningOrdered By: Rebecca Gonzales on 04-10-2023 Thin prep Papanicolaou smear with manual screening 21 U/L 15-37 [facility] Thin prep Papanicolaou smear with manual screening 4 5-15 [facility] Whole blood hemoglobin A1c/t otal hemoglobin ratio (mass fraction)Ordered By: Rebecca Garciacamden on 04-10-2023 HbA1c (Bld) [Mass fraction] 5.7 % 3.8-5.6 [facility] Comment on above: Normal < 5.7 % Predi abetic 5.7 - 6.4 % Diabetic >or= 6.5 % Please note range changes. Absolute lymphocyte countOrd ered By: Dr. Jennings on 07-04-2022 Lymphocytes Auto (Unsp spec) [#/Vol] 1.42 10*3/uL 0.83-4.51 [facility] Basophil percentageOrdered B y: Dr. Jennings on 07-04-2022 Basophils/100 WBC (Bld) 0.8 % 0-1 [facility] Bilirubin [Mass/Vol] 0.50 mg/dL 0.20-1.[address] [facility] Comment on above: For patients on eltr ombopag therapy, use of Dimension Eagar TBIL is not recommended. Eosinophils/100 WBC (Bld) 1.6 % 0-5 [facility] Neutrophils (Bld) [#/Vol] 5.4 10*3/uL 2.0-7.7 [facility] Neutrophils/100 WBC (Bld) 73.7 % 47-70 [facility] Protein [Mass/Vol] 7.4 g/dL 6.4-8.2 [facility] WBC (Bld) [#/Vol] 7.4 10*3/uL 4.4-11.0 [facility] Blood erythrocytes count (nu mber/volume)Ordered By: Dr. Jennings on 07-04-2022 RBC (Bld) [#/Vol] 4.99 10*6/uL 4.2-5.4 [facility] Blood hemoglobin measurement (mass/volume)Ordered By: Dr. Jennings on 07-04-2022 Hemoglobin (Bld) [Mass/Vol] 14.8 g/dL 12.0-15.0 [facility] Blood lymphocytes/100 leukoc ytesOrdered By: Dr. Jennings on 07-04-2022 Lymphocytes/100 WBC (Bld) 19.3 % 19-41 [facility] Blood monocytes/100 leukocyt esOrdered By: Dr. Jennings on 07-04-2022 Monocytes/100 WBC (Bld) 4.3 % 0-10 [facility] Blood platelet mean volumeOr dered By: Dr. Jennings on 07-04-2022 Platelet mean volume (Bld) [Entitic vol] 10.3 fL 6.2-12.0 [facility] Determination of erythrocyte mean corpuscular volume (MCV)Ordered By: Dr. Jennings on 07-04-2022 MCV (RBC) [Entitic vol] 94.4 fL 81-99 [facility] Direct bilirubinOrdered By: Dr. Jennings on 07-04-2022 Bilirubin.direct [Mass/Vol] 0.11 mg/dL 0.00-0.30 [facility] Hematocrit Auto (Bld) [Volum e fraction]Ordered By: Dr. Jennings on 07-04-2022 Hematocrit (Bld) [Volume fraction] 47.1 % 37-47 [facility] - Chemistry and C hemistry - challengeOrdered By: Dr. Jennings on 07-04-2022 ALP [Catalytic activity/Vol] 65 U/L 45-117 [facility] ALT [Catalytic activity/Vol] 23 U/L 13-56 [facility] Globulin (S) [Mass/Vol] 3.4 g/dL 2.2-4.2 [facility] - Hematology and Cell countsOrdered By: Dr. Jennings on 07-04-2022 Erythrocyte distribution width (RBC) [Entitic vol] 46.6 fL 35.1-43.9 [facility] Erythrocyte distribution width (RBC) [Ratio] 13.3 % 11.6-14.6 [facility] Immature granulocytes/100 WBC (Bld) 0.300 % 0.0-0.9 [facility] Comment on above: IG% - Immature Granu locytes (promyelocytes, myelocytes and metamyelocytes) > 1% indicates that a LEFT SHIFT is Present. MCH (RBC) [Entitic mass] 29.7 pg 27.0-32.0 [facility] Nucleated RBC/100 WBC (Bld) [Ratio] 0 % 0-5 [facility] MCHC Auto (RBC) [Mass/Vol]Or dered By: Dr. Jennings on 07-04-2022 MCHC (RBC) [Mass/Vol] 31.4 g/dL 32-36 [facility] No Panel InformationOrdered By: Dr. Jennings on 07-04-2022 Hepatitis B Surface Antigen Non-Reactive Nonreactive [facility] Hepatitis C Antibody Non-Reactive Nonreactive [facility] Comment on above: Non Reactive: < 0.8 Equivocal: >/= 0.8 to < 1.0 Reactive: >/= 1.0The CDC recommends that a reactive/equivocal HCV antibody result be followed up by the HCV Nucleic Acid Amplificationtest (606701) Platelets bldOrdered By: Dr. Jennings on 07-04-2022 Platelets (Bld) [#/Vol] 204 10*3/uL 150-450 [facility] Qualitative QuantiFERON-TB g old in tube testOrdered By: Dr. Jennings on 07-04-2022 M. tuberculosis tuberculin stim IFN-g Ql (Bld) 0.04 IU/mL . [facility] Serum hepatitis B virus core antibody detectionOrdered By: Dr. Jennings on 07-04-2022 HBV core Ab Ql (S) Negative Negative [facility] Comment on above: Performed at: [address] [id number] Director: Cornell Blanchard PhD, Phone: [phone] Serum hepatitis B virus surf tamera antibody IgG detectionOrdered By: Dr. Jennings on 07-04-2022 HBV surface IgG Ql (S) Non-Reactive [facility] Comment on above: Non Reactive: Incons istent with immunity less than <10 mIU/mL Reactive: Consistent with immunity greater than or equal to 10 mIU/mL Serum or plasma albumin christie urement (mass/volume)Ordered By: Dr. Jennings on 07-04-2022 Albumin [Mass/Vol] 4.0 g/dL 3.2-5.0 [facility] Thin prep Papanicolaou smear with manual screeningOrdered By: Dr. Jennings on 07-04-2022 Thin prep Papanicolaou smear with manual screening 18 U/L 15-37 [facility] Thin prep Papanicolaou smear with manual screening Comment . [facility] Comment on above: QuantiFERON-TB Gold Plus is a qualitative indirect test forM tuberculosis infection (including disease) and isintended for use in conjunction with risk assessment,radiography, and other medical and diagnostic evaluations.The QuantiFERON-TB Gold Plus result is determined bysubtracting the Nil value from either TB antigen (Ag)value. The Mitogen tube serves as a control for the test. Thin prep Papanicolaou smear with manual screening 0.01 IU/mL . [facility] Thin prep Papanicolaou smear with manual screening > 10.00 IU/mL . [facility] Thin prep Papanicolaou smear with manual screening Negative Negative [facility] Comment on above: No response to M tub erculosis antigens detected.Infection with M tuberculosis is unlikely, but high riskindividuals should be considered for additional testing(ATS/IDSA/CDC Clinical Practice Guidelines, 2017). Thereference range is an Antigen minus Nil result of <0.35IU/mL.The specimen received for QuantiFERON testing was incubatedby the ordering institution. Specific procedures outlinedin our Directory of Services and in the package insert forthe QuantiFERON Gold (In Tube) test must be followed toenable for proper stimulation of cells for the productionof interferon gamma. Chemiluminescence immunoassaymethodology Absolute lymphocyte countOrd ered By: Dr. Gonzales on 04-11-2022 Lymphocytes Auto (Unsp spec) [#/Vol] 1.67 10*3/uL 0.83-4.51 [facility] Basophil percentageOrdered B y: Dr. Gonzales on 04-11-2022 Basophils/100 WBC (Bld) 1.1 % 0-1 [facility] Bilirubin [Mass/Vol] 0.40 mg/dL 0.20-1.[address] [facility] Comment on above: For patients on eltr ombopag therapy, use of Dimension Eagar TBIL is not recommended. Chloride [Moles/Vol] 108 mmol/L 98-[address] [facility] Cholesterol [Mass/Vol] 174 mg/dL <200 [facility] Comment on above: <200 mg/dL Desirable 200-240 mg/dL Borderline >240 mg/dL High Risk Eosinophils/100 WBC (Bld) 3.9 % 0-5 [facility] Glucose [Mass/Vol] 107 mg/dL 74-106 [facility] Comment on above: Fasting Glucose resu lt from 100 to 125 mg/dL suggests IMPAIRED HOMEOSTASIS per A.D.A. criteria. Neutrophils (Bld) [#/Vol] 3.4 10*3/uL 2.0-7.7 [facility] Neutrophils/100 WBC (Bld) 59.1 % 47-70 [facility] Potassium [Moles/Vol] 4.2 mmol/L 3.5-5.1 [facility] Protein [Mass/Vol] 7.0 g/dL 6.4-8.2 [facility] Sodium [Moles/Vol] 142 mmol/L 136-145 [facility] Triglyceride [Mass/Vol] 171 mg/dL <199 [facility] Comment on above: The drugs N-Acetylcy steine and Metamizole may falsely depress this assay.Serum Triglycerides Reference Interval Normal <150 mg/dL Borderline high 150 - 199 mg/dL High 200 - 499 mg/dL Very High > or = 500 mg/dL WBC (Bld) [#/Vol] 5.7 10*3/uL 4.4-11.0 [facility] Blood erythrocytes count (nu mber/volume)Ordered By: Dr. Gonzales on 04-11-2022 RBC (Bld) [#/Vol] 4.93 10*6/uL 4.2-5.4 [facility] Blood hemoglobin measurement (mass/volume)Ordered By: Dr. Gonzales on 04-11-2022 Hemoglobin (Bld) [Mass/Vol] 15.1 g/dL 12.0-15.0 [facility] Blood lymphocytes/100 leukoc ytesOrdered By: Dr. Gonzales on 04-11-2022 Lymphocytes/100 WBC (Bld) 29.5 % 19-41 [facility] Blood monocytes/100 leukocyt esOrdered By: Dr. Gonzales on 04-11-2022 Monocytes/100 WBC (Bld) 6.0 % 0-10 [facility] Blood platelet mean volumeOr dered By: Dr. Gonzales on 04-11-2022 Platelet mean volume (Bld) [Entitic vol] 10.6 fL 6.2-12.0 [facility] Determination of erythrocyte mean corpuscular volume (MCV)Ordered By: Dr. Gonzales on 04-11-2022 MCV (RBC) [Entitic vol] 93.3 fL 81-99 [facility] Hematocrit Auto (Bld) [Volum e fraction]Ordered By: Dr. Gonzales on 04-11-2022 Hematocrit (Bld) [Volume fraction] 46.0 % 37-47 [facility] - Chemistry and C hemistry - challengeOrdered By: Dr. Gonzales on 04-11-2022 ALP [Catalytic activity/Vol] 55 U/L 45-117 [facility] ALT [Catalytic activity/Vol] 25 U/L 13-56 [facility] CO2 [Moles/Vol] 29.0 mmol/L 21.0-32.0 [facility] Globulin (S) [Mass/Vol] 3.5 g/dL 2.2-4.2 [facility] Urea nitrogen/Creatinine [Mass ratio] 11.9 mg/mg 10-20 [facility] - Hematology and Cell countsOrdered By: Dr. Gonzales on 04-11-2022 Erythrocyte distribution width (RBC) [Entitic vol] 46.3 fL 35.1-43.9 [facility] Erythrocyte distribution width (RBC) [Ratio] 13.5 % 11.6-14.6 [facility] Immature granulocytes/100 WBC (Bld) 0.400 % 0.0-0.9 [facility] Comment on above: IG% - Immature Granu locytes (promyelocytes, myelocytes and metamyelocytes) > 1% indicates that a LEFT SHIFT is Present. MCH (RBC) [Entitic mass] 30.6 pg 27.0-32.0 [facility] Nucleated RBC/100 WBC (Bld) [Ratio] 0 % 0-5 [facility] Auto (RBC) [Mass/Vol]Or dered By: Dr. Gonzales on 04-11-2022 MCHC (RBC) [Mass/Vol] 32.8 g/dL 32-36 [facility] No Panel InformationOrdered By: Dr. Gonzales on 04-11-2022 Estimated GFR (MDRD) Amer 77 mL/min >60 [facility] Comment on above: GFR Calc Estimated GFR (MDRD) Non-Af Amer 63 mL/min >60 [facility] Comment on above: Non- GFR Calc Platelets bldOrdered By: Dr. Gonzales on 04-11-2022 Platelets (Bld) [#/Vol] 205 10*3/uL 150-450 [facility] Serum or plasma albumin christie urement (mass/volume)Ordered By: Dr. Gonzales on 04-11-2022 Albumin [Mass/Vol] 3.5 g/dL 3.2-5.0 [facility] Serum or plasma albumin/glob ulin mass ratioOrdered By: Dr. Gonzales on 04-11-2022 Albumin/Globulin [Mass ratio] 1.0 {ratio} 0.9-2.4 [facility] Serum or plasma calcium christie urement (mass/volume)Ordered By: Dr. Gonzales on 04-11-2022 Calcium [Mass/Vol] 8.7 mg/dL 8.5-10.1 [facility] Serum or plasma cholesterol in HDL measurement (mass/volume)Ordered By: Dr. Gonzales on 04-11-2022 Cholesterol in HDL [Mass/Vol] 54 mg/dL >40 [facility] Comment on above: The drugs N-Acetylcy steine and Metamizole may falsely depress this assay. Reference Range HDL <40 mg/dL Low HDL Cholesterol HDL >or= 60 mg/dL High HDL Cholesterol Serum or plasma cholesterol in VLDL measurement (mass/volume)Ordered By: Dr. Gonzales on 04-11-2022 Cholesterol in VLDL [Mass/Vol] 34 mg/dL 5-40 [facility] Serum or plasma creatinine m easurement (mass/volume)Ordered By: Dr. Gonzales on 04-11-2022 Creatinine [Mass/Vol] 0.92 mg/dL 0.55-1.02 [facility] Comment on above: The validity of the calculated GFR & GFRAA in patients over 70 years has not been determined. Clinical correlation is essential. Serum or plasma low density lipoprotein (LDL) cholesterol measurement (mass/volume)Ordered By: Dr. Gonzales on 04-11-2022 Cholesterol in LDL [Mass/Vol] 86 mg/dL 0-130 [facility] Serum or plasma urea nitroge n measurement (mass/volume)Ordered By: Dr. Gonzales on 04-11-2022 Urea nitrogen [Mass/Vol] 11 mg/dL 7-18 [facility] Thin prep Papanicolaou smear with manual screeningOrdered By: Dr. Gonzales on 04-11-2022 Thin prep Papanicolaou smear with manual screening 15 U/L 15-37 [facility] Thin prep Papanicolaou smear with manual screening 5 5-15 [facility] No Panel Informationon 02-03 POC SARS CoV-2 Antigen Positive [facility] Work Phone: Vital Signs Date Time Vital Sign Value Performing Clinician Faci lity 02-03-2022 13:20-0400 Body height 156.[address] Rebecca Gonzales Work Phone: [facility] Work Phone: 02-03-2022 13:20-0400 Body mass index (BMI) [Ratio] 29.9 kg/m2 Dr. Rebecca Gonzales Work Phone: [facility] Work Phone: 02-03-2022 13:20-0400 Body temperature 97.8 [degF] Dr. Rebecca Gonzales Work Phone: [facility] Work Phone: 02-03-2022 13:20-0400 Body weight 73.[address] Rebecca Gonzales Work Phone: [facility] Work Phone: 02-03-2022 13:20-0400 Diastolic blood pressure 82 mm[Hg] Dr. Rebecca Gonzales Work Phone: [facility] Work Phone: 02-03-2022 13:20-0400 Heart rate 84 /min Dr. Rebecca Gonzales Work Phone: [facility] Work Phone: 02-03-2022 13:20-0400 Respiratory rate 16 /min Dr. Rebecca Gonzales Work Phone: [facility] Work Phone: 02-03-2022 13:20-0400 SaO2% (BldA) [Mass fraction] 97 % Dr. Rebecca Gonzales Work Phone: [facility] Work Phone: 02-03-2022 13:20-0400 Systolic blood pressure 122 mm[Hg] Dr. Rebecca Gonzales Work Phone: [facility] Work Phone: Encounters Encounter Date Encounter Type Care Provider Facility [facility]: [facility] Start: 10-30-2024 ambulatory [facility] Facility:[facility] Start: 10-24-2024 End: 10-24-2024 Patient encounter procedure Nicole MARROQUIN -[facility] Work Phone: Start: 10-24-2024 End: 10-24-[address] Rebecca Gonzales DO Work Phone: [facility] Work Phone: Start: 10-14-2024 End: 10-14-[address] Rebecca Gonzales DO Work Phone: [facility] Work Phone: Start: 10-14-2024 End: 10-14-2024 Patient encounter procedure Laurie Baker PROFESSIONAL [employer]ATER-C [facility] Work Phone: Start: 10-14-2024 End: 10-14-2024 ambulatory Laurie Baker Facility:[facility] Start: 10-13-2024 End: 10-13-2024 Patient encounter procedure Laurie Baker PROFESSIONAL SKATER-C -[facility] Work Phone: Start: 10-13-2024 End: 10-13-2024 ambulatory Laurie Baker Facility:[facility] Start: 07-10-2024 End: 07-10-[address] Agustin Jennings MD -[facility] Work Phone: Start: 07-10-2024 End: 07-10-2024 ambulatory Rebecca Malcamden Facility:[facility] Start: 05-27-2024 End: 05-27-2024 [facility] Start: 04-10-2024 End: 04-10-2024 [facility]ulatory [facility] Start: 07-09-2023 End: 07-09-2023 ambulatory [facility] Work Phone: Start: 07-09-2023 End: 07-09-2023 Patient encounter procedure [facility] Work Phone: Start: 05-10-2023 End: 05-10-2023 Patient encounter procedure [facility] Work Phone: Start: 04-10-2023 End: 04-10-2023 ambulatory [facility] Work Phone: Start: 04-10-2023 End: 04-10-2023 [facility] Start: 07-04-2022 End: 07-04-2022 ambulatory [facility] Work Phone: Start: 07-04-2022 End: 07-04-2022 Patient encounter procedure [facility] Start: 04-27-2022 End: 04-27-[address] Rebecca Gonzales Work Phone: [facility] Work Phone: Start: 04-27-2022 End: 04-27-[address] Rebecca Gonzales Work Phone: [facility] Start: 04-11-2022 End: 04-11-[address] Rebecca Gonzales Work Phone: [facility] Work Phone: Start: 04-11-2022 End: 04-11-[address] Rebecca Gonzales Work Phone: [facility], Chris Harp [facility] Start: 02-03-2022 End: 02-03-[address] Rebecca Gonzales Work Phone: [facility] Procedures Date Procedure Procedure Detail Performing Clinician Start: 10-14-[address] Rebecca Gonzales DO Work Phone: Start: 10-14-[address] Rebecca Gregory O Work Phone: Start: 10-14-[address] Rebecca Gonzales DO Work Phone: Start: 10-14-2024 Ova [place] parasites identification [address] Rebecca Gonzales DO Work Phone: Start: 10-14-2024 Iadna-dna/rna gi pthgn multiplex probe tq 6-11 Dr. Rebecca Gonzales DO Work Phone: Start: 10-13-2024 Plain X-ray abdomen Dr. Rebecca Gonzales DO Work Phone: Start: 07-10-2024 In-vitro immunologic test Dr. Rebecca Gonzales DO Work Phone: Comment on above: QuantiFERON-TB Gold Plus is a qualitativ e indirect test forM tuberculosis infection (including disease) and isintended for use in conjunction with risk assessment,radiography, and other medical and diagnostic evaluations.The QuantiFERON-TB Gold Plus result is determined bysubtracting the Nil value from either TB antigen (Ag)value. The Mitogen tube serves as a control for the test. No response to M tub erculosis antigens detected.Infection with M tuberculosis is unlikely, but high riskindividuals should be considered for additional testing(ATS/IDSA/CDC Clinical Practice Guidelines, 2017). Thereference range is an Antigen minus Nil result of <0.35IU/mL.The specimen received for QuantiFERON testing was incubatedby the ordering institution. Specific procedures outlinedin our Directory of Services and in the package insert forthe QuantiFERON Gold (In Tube) test must be followed toenable for proper stimulation of cells for the productionof interferon gamma. Chemiluminescence immunoassaymethodologyPerformed at: [facility] [id number] Director: Cornell Blanchard PhD, Phone: [phone] Start: 05-10-2023 Screening mammography Start: 04-27-2022 Dual energy X-ray absorptiometry Dr. Chari Gonzales Work Phone: Start: 04-27-[address] Rebecca Gonzales Work Phone: Plan of Treatment Date Care Activity Detail Author Start: 10-14-2024 Ova and Parasites Ova and Parasites [facility] Ova OR parasites identification [facility] Payers Date Payer Category Payer Private Health Insurance [id number] 2024 Medicare [id number] 2024 Private Health Insurance [facility] [id number] 2024 Self-pay [id number] 2014 Unknown ANTHEM [id number] Private Health Insurance [employer] [facility] [id number] Unknown [id number] 2.16.8 [id number] Unknown [id number] 2.16.8 [id number] Unknown [id number] 2.16.8 [id number] Unknown [id number] 2.16.8 [id number] Unknown [id number] 2.16.8 [id number] Unknown [id number] 2.16.8 [id number] Unknown [id number] 2.16.8 [id number] Unknown [id number] 2.16.8 [id number] Social History Date Type Detail Facility Start: [facility]03[facility] Start: 1950 Sex Assigned At Female [facility] Start: 02-03-2022 [facility] (finding[facility] Progress note 10-24-2024 Note Date & Type Note Facility 10-24-2024 Progress note Note Date/Time October 24, 2024 1:37pm [facility] [address] [place] [address] OFFICE VISIT Date of Service: 10/24/24 MR#: [id number] Acct: [id number] Name: MICHELLE WAKEFIELD BARBIE Rep #: [id number] : 1950 Provider: LOPEZ He Age/Sex: 74/F Location: [facility] [place] Status: Signed Intake Vital Signs 02/03/22 13:20 Height 5 ft 1.5 in Intake Visit Reasons: PRE Colon Chief Complaint: diarrhea Allergies Sulfa (Sulfonamide Antibiotics) Adverse Reaction (Verified 10/24/24 12:57) DOESNT WORK FOR ME Medications ?Medication ?Instructions ?Recorded ?Confirmed ?Type cholecalciferol (vitamin D3) 50 2,000 unit PO DAILY 10/24/24 History mcg (2,000 unit) capsule (Vitamin D3) cyanocobalamin (vitamin B-12) 500 1,000 mcg PO DAILY@0 800 02/07/17 10/24/24 History mcg tablet multivitamin (Multiple Vitamins 1 ea PO DAILY 02/07/17 10/24/24 History tablet) biotin 5 mg capsule 5 mg PO DAILY 02/03/2210/24 History mirabegron 50 mg tablet,extended 50 mg PO 02/03/22 History release 24 hr (Myrbetriq) omeprazole 40 mg capsule,delayed 40 mg PO 02/03/22 History release risankizumab-rzaa 150 mg/mL 150 mg subcut Q12W 5 10/24/24 History subcutaneous syringe (Skyrizi) Have you fallen in the past year?: No Nurse's Note: Patient is here for a pre colon screening. She has been having abdominal pain and diarrhea. Switched to a bland diet and no other symptoms at this time. Patient states she has a over all feeling in her abdomen that something isn't right. PFSH Family History Mother Heart disease Hypertension Father CVA (cerebral vascular accident) Social History Smoking Status: Never smoker alcohol intake: current alcohol intake frequency: a few times a week Alcohol type: wine HPI HPI Chief Complaint: diarrhea Details: MICHELLE WAKEFIELD, is a 74 F who presents to the office today for establishment with [facility]. KUB 5..25 Bowel-gas pattern appears within limits. No gaseous distention ofbowel or evidence of mass effect. Stool 10.14.24 lactoferrin positive, negative for enteric pathogens, c.Diff negative, O&P and Giardia negative OV 5..25 Pt has been having abdominal pain and loose stools since October 07. The night it started she had sever abd pain and explosive loose stools she thought she may need to call the squad however she did not. SHe saw her PCP who ordered stool testing which was positive for wbc but not infection. Since then her pain has become less severe but she continues to have constant cramping abd pain. She is having loose stools over 5x per day. Sometimes they are soft and formed other times they are liquid. Prior to this, she had very normal bowel habits with a solid bm daily. She has tried imodium which did not alleviate her loose stools. Last colonoscopy was in 2016. She had a negative Cologuard test [id number]. She is worried about colon cancer as he from colon cancer. She denies daily use of NSAIDs. SHe is on omeprazole but has been on this for almost 30 years. ROS Const Constitutional: No anorexia, fatigue, fever(s), weight change or sleep problems Eyes Eyes: No change in vision ENT ENT: No abnormal hearing, difficulty swallowing, mouth lesions, tongue swelling or throat swelling Resp Respiratory: No cough or shortness of breath Cardio Cardiology: No chest pain at rest, chest pain with exertion, shortness of breathor dyspnea on exertion Gastro GI: Positive for abdominal pain and diarrhea; No difficulty swallowing Genitourinary-Female: No difficulty urinating or burning urination Musc Musculoskeletal: No joint pain, joint swelling, muscle weakness or decreased muscle mass Skin Skin: No hair loss in leg, yellowing of the eye, itchy eyes, rash, skin ulcer orskin swelling Neuro Neurology: No abnormal hearing, abnormal movements, confusion, unsteady gait/balance or memory loss Psych Psychiatric: No anxiety, No confusion and No memory loss Endo Endocrine: No fatigue or weight change Aller/Imm Allergy/Immunologic: No itchy eyes, throat swelling or tongue swelling Arun/Lymp Hematologic/Lymphatic: No easy bleeding, easy bruising or enlarged lymph nodes Exam Const General: cooperative Resp Effort & Inspection: normal respiratory effort Cardio Rate: regular rate Rhythm: regular rhythm GI Inspection: normal to inspection Auscultation: normal bowel sounds Palpation: soft, no hepatosplenomegaly and tender Assessment and Plan Assessment and Plan (1) Diarrhea: Status: Acute Plan: Michelle is a 74 yo female pt here today for evaluation of loose stool and abdominal pain x2 weeks. Pt started with severe lower abdominal pain and explosive watery diarrhea. Symptoms have improved in severity but continues to have 5+ loose stools daily and constant abd cramping. Stool testing was positivefor lactoferrin but negative for enteric pathogens, O&P, Giardia, c.diff and h pylori. Her last colonoscopy was in 2016 and Cologuard in 2022. SHe will undergocolonoscopy to rule out colitis. Pt also having CT abd/pelvis in a few weeks forfurther evaluation. I have offered colestipol for loose stools however she prefers to not mask her symptoms. She may try dicyclomine for her pain which was prescribed by her PCP. -Colonoscopy -CT abd/pelvis -Dicyclomine PRn -Consider colestipol (2) Abdominal pain: Status: Acute Coding Level of Care Code Off vis,new,level 4 Diagnoses Diarrhea R19.7 Abdominal pain R10.9 Clinical Quality Measures Falls Risk Screening/Assistive Devices Have you fallen in the past year?: No 10/24/24 1331 <Electronically signed by Nicole MARROQUIN> Date _ Nicole MARROQUIN Cosigner Signature: Date (if applicable) CC: ~ [facility] Work Phone: Progress note 10-24-2024 Note Date & Type Note Facility 10-24-2024 Progress note [facility] Evaluation note Note Date & Type Note Facility Evaluation note No assessment information availa paty [facility] Work Phone: Evaluation note Note Date & Type Note Facility Evaluation note Diagnosis Onset Date Resolution Abdominal pain acute October 24, 2024 12:49pm Diarrhea acute October 24, 2024 12:49pm [facility] Work Phone: Reason for referral (narrative) Note Date & Type Note Facility Reason for referral (narrative) No reason for referral information available [facility] Work Phone: Chief Complaint and Reason for Visit Chief Complaint COVID 19 Chief Complaint COVID 19 OSTEOPOROSIS Chief Complaint OSTEOPOROSIS SKIN Chief Complaint SCREENING Chief Complaint Admit Date STOOL BURDEN, DIARRHEA October 13, 2024 12 :34pm STOOL DROPOFF October 14, 2024 7:34a m Chief Complaint Admit Date STOOL BURDEN, DIARRHEA October 13, 2024 12 :34pm STOOL DROPOFF October 14, 2024 7:34a m PRE Colon October 24, 2024 12:49 pm Reason for Visit Admit Date Abdominal pain October 24, 2024 12:49 pm Diarrhea October 24, 2024 12:49 pm Family History No Family History Records Found Relationship Condition Age at Onset Recorded Date/T jigna mother Cardiac disease Unknown Hypertension Unknown father Cerebrovascular accident (CVA) Unknown Advance Directives No Advanced Directives Records Found Advance Directive Response Recorded Date/ Time Living Will Yes February 07, 2017 1:28pm Power of Mold Puller Yes January 1:28pm Summary Purpose Additional Source Comments Goals (unrecognized section and content) Goals may be documented in a n alternate sectionGoals may be documented in an alternate sectionGoals may be documented in an alternate sectionGoals may be documented in an alternate sectionGoals may be documented in an alternate sectionGoals may be documented in an alternate sectionGoals may be documented in an alternate section Care Teams (unrecognized sec tion and content) Team Status: Active Member Role Status Dates Dr. Rebecca Gonzales DO Family Provider Active Dr. Rebecca Gonzales DO Primary Care Provider Active Team Status: Inactive Member Role Status Dates Dr. Rebecca Gonzales DO Primary Care Provider, Attending Cheryle rivero Active Team Status: Inactive Member Role Status Dates Dr. Rebecca Gonzales DO Primary Care Provider Active Dr. Agustin Jennings MD Attending Provider, Referring Pro vider Active Team Status: Inactive Member Role Status Dates Dr. Rebecca Gonzales DO Primary Care Provide r, Attending Provider, Referring Provider Active Team Status: Active Member Role Status Dates Dr. Rebecca Gonzales DO Primary Care Provider Active Team Status: Inactive Member Role Status Dates Dr. Rebecca Gonzales DO Primary Care Provider Active Start: July 10, 2024 End: July 10, 2024 Dr. Agustin Jennings MD Attending Provider Active S tart: July 10, 2024 End: July 10, 2024 Dr. Agustin Jennings MD Referring Provider Active S tart: July 10, 2024 End: July 10, 2024 Team Status: Inactive Member Role Status Dates Dr. Rebecca Gonzales DO Primary Care Provider Active Start: October 13, 2024 End: October 13, 2024 PHAN Kate Attending Provider Active St art: October 13, 2024 End: October 13, 2024 PHAN Kate Referring Provider Active St art: October 13, 2024 End: October 13, 2024 Team Status: Inactive Member Role Status Dates Dr. Rebecca Gonzales DO Primary Care Provider Active Start: October 14, 2024 End: October 14, 2024 PHAN Kate Attending Provider Active St art: October 14, 2024 End: October 14, 2024 PHAN Kate Referring Provider Active St art: October 14, 2024 End: October 14, 2024 Team Status: Inactive Member Role Status Dates Dr. Rebecca Gonzales DO Referring Provider Active St art: October 24, 2024 End: October 24, 2024 LOPEZ He Attending Provider Active Start: October 24, 2024 End: October 24, 2024 INFORMATION SOURCE (unrecogn ized section and content) DATE CREATED AUTHOR 10/30/2024 [facility] FOR RECORDS PERTAINING TO PATIENTS WHO ARE OR HAVE BEEN ENROLLED IN A CHEMICAL DEPENDENCY/SUBSTANCEABUSE PROGRAM, SOME INFORMATION MAY BE OMITTED. This clinical summary was aggregated from multiple sources. Caution should be exercised in using it in the provision of clinical care. This summary normalizes information from multiple sources, and as a consequence, information in this document may materially change the coding, format and clinical context of patient data. In addition, data may be omitted in some cases. CLINICAL DECISIONS SHOULD BE BASED ON THE PRIMARY CLINICAL RECORDS. [facility]. provides no warranty or guarantee of the accuracy or completeness of information in this document.
== END | disposition home or self-care (01) ==
LOC: CT 12:42
PROVIDERS: PCP Family Medicine; Referring Provider Nurse Practitioner Family; Visit Provider Nurse Practitioner Family
DX: R19.7 Diarrhea, unspecified (principal); K31.89 Other diseases of stomach and duodenum
CPT/HCPCS: 74177; Q9967

== ENCOUNTER 2024-12-15 05:10 | Day surgery (SDC) | payer MEDICARE, OTHER, SELFPAY ==
[2024-12-15] VITALS (8 sets, daily range): BP systolic 94–137; BP diastolic 58–85; PULSE 81–86; RESP 16–18; TEMP 36.6–37.1; O2SAT 94–98; BMI 31.0
--- OUTSIDE RECORDS SUMMARY | 2024-12-15 05:12 | XMS RPT_ITS | CCD ---
Author Organization [facility] Care Team Providers Care Computer Laboratory Technician Name Role Phone Dr. Rebecca Gonzales Primary Care Provider Dr. Rebecca Gonzales Referring Provider [phone] LOPEZ Mcgee Attending Provider [phone] Dr. Rebecca Gonzales DO Primary Care Provider Dick ROLAND, Dr. Velez Attending Provider [phone] Dick ROLAND, Dr. Velez Referring Provider [phone] Samuel SALES PORTER-C, Laurie Attending Provider [phone] Samuel SALES PORTER-C, Laurie Referring Provider [phone] Dr. Rebecca Gonzales DO Referring Provider [phone] Nicole Lucas Attending Provider Malys, Rebecca Primary Care Unavailable Malys, Rebecca Attending Unavailable Malys, Rebecca Referring Unavailable Malys, Rebecca Primary Care Unavailable Malys, Rebecca Attending Unavailable Malys, Rebecca Referring Unavailable Nicole Farnsworth Attending Unavailable Malys, Rebecca Referring Unavailable Samuel, Laurie Referring Unavailable Malys, Rebecca Primary Care Unavailable Samuel, Laurie Attending Unavailable Samuel, Laurie Referring Unavailable Malys, Rebecca Primary Care Unavailable Samuel, Laurie Attending Unavailable Friend, Loyd Attending Unavailable Malys, Rebecca Referring Unavailable Malys, Rebecca Primary Care Unavailable Samuel, Laurie Attending Unavailable Malys, Rebecca Primary Care Unavailable Samuel, Laurie Referring Unavailable Malys, Rebecca Primary Care Unavailable Agustin Jennings Attending Unavailable Agustin Jennings Referring Unavailable Allergies Allergy Classification Reported Allergen(s) Allergy Type Date of Onset Reaction(s) Facility (8 sources) Sulfonamides (Antibiotic) Propensity to adverse reactions 2 DOESNT WORK FOR [facility] (1 source) Sulfonamides (Antibiotic) Drug allergy (disorder) 5 [facility] Repository Medications Current Medications Medication Drug Class(es) Dates Sig (Normalized) Sig (Original) biotin 5 mg oral capsule (8 sources) Start: 02-03-2022 take 1 capsule by mouth once daily Biotin 5 mg capsule Active 5 mg PO DAILY February 03, 2022 12:00am cholecalciferol 0.05 mg oral capsule (8 sources) Vitamin D Start: 02-07-2017 take 1 capsule by mouth once daily Cholecalciferol (Vitamin D3) (Vitamin D3) 2,000 UNIT capsule Active 2000 U PO DAILY February 07, 2017 12:00am 24 hr mirabegron 50 mg extended release oral tablet (8 sources) beta3-Adrenergi c Agonist Start: 02-03-2022 take 1 tablet by mouth every twenty-four hours Mirabegron (Myrbetriq) 50 mg tablet extended release 24 hr Active 50 mg PO February 03, 2022 12:00am Multivitamin (Multiple Vitamins) 1 EACH tablet (8 sources) Start: 02-07-2017 take 1 tablet by mouth once daily Multivitamin (Multiple Vitamins) 1 EACH tablet Active 1 NMA PO DAILY February 07, 2017 12:00am Start: 02-07-2017 take 1 tablet by kelli th once daily Multivitamin (Multiple Vitamins) 1 EACH tablet Active 1 EACH PO DAILY February 06, 2017 11:00pm omeprazole 40 mg delayed release oral capsule (8 sources) Proton Pump Inhibitor Start: 02-03-2022 Omeprazole 40 mg capsule,delayed release(DR/EC) Active 40 mg PO February 03, 2022 12:00am Risankizumab-Rzaa (2 sources) Start: 10-24-2024 Risankizumab-R zaa (Skyrizi) 150 mg/mL syringe Active 150 mg SC every 12 weeks October 24, 2024 12:00am vitamin b12 0.5 mg oral tablet (8 sources) Vitamin B12 Start: 02-07-2017 take 2 tablets by mouth once daily Cyanocobalamin (Vitamin B-12) 500 MCG tablet Active 1000 ug PO DAILY@0800 February 07, 2017 12:00am Start: 02-07-2017 take 1000 ug by mout h once daily Cyanocobalamin (Vitamin B-12) Active 1000 MCG PO DAILY@0800 February 06, 2017 11:00pm Completed/Discontinued Medications Medication Drug Class(es) Dates Sig (Normalized) Sig (Original) dexamethasone 6 mg oral tablet (8 sources) Corticosteroid Start: 02-03-2022 End: 10-24-2024 take 1 tablet by mouth once daily Dexamethasone (Decadron) 6 mg tablet Discontinued 6 mg PO DAILY February 03, 2022 12:00am October 24, 2024 12:58pm esomeprazole 20 mg delayed release oral capsule (8 sources) Proton Pump Inhibitor Start: 02-07-2017 End: 02-03-2022 take 1 capsule by mouth once daily Esomeprazole Magnesium (Nexium) 20 MG capsule Discontinued 20 mg PO DAILY February 07, 2017 12:00am February 03, 2022 1:22pm gelatin 650 mg oral capsule (8 sources) Start: 02-07-2017 End: 02-03-2022 take 1 capsule by mouth once daily Gelatin 650 MG capsule Discontinued 650 mg PO DAILY February 07, 2017 12:00am February 03, 2022 1:22pm solifenacin succinate 10 mg oral tablet (8 sources) Cholinergic Muscarinic Antagonist Start: 02-07-2017 End: 02-03-2022 take 1 tablet by mouth once daily Solifenacin (Vesicare) 10 MG tablet Discontinued 10 mg PO DAILY February 07, 2017 12:00am February 03, 2022 1:22pm Problems Active Problems Problem Classification Problem Date Documented Da te Episodic/Chronic Abdominal hernia (1 source) Hiatal hernia; Translations: [Diaphragmatic hernia without obstruction or gangrene] 10-30-2024 Episodic Abdominal pain (5 sources) Abdominal pain; Translations: [Unspecified abdominal pain] Onset: 10-24-2024 10-24-2024 Episodic Osteoporosis (1 source) Age-related osteoporosis without current pathological fracture; Translations: [Age-related osteoporosis without current pathological fracture] Onset: 06-19-2024 Chronic Other gastrointestinal disorders (4 sources) Diarrhea; Translations: [Diarrhea, unspecified] 10-24-2024 Episodic Other gastrointestinal disorders (1 source) Diarrhea, unspecified; Translations: [Diarrhea, unspecified] Onset: 11-07-2024 Episodic Other inflammatory condition of skin (1 source) Psoriasis vulgaris; Translations: [Psoriasis vulgaris] Onset: 07-25-2024 Chronic Past or Other Problems Problem Classification Problem Date Documented Da te Episodic/Chronic Malaise and fatigue (1 source) Other fatigue; Translations: [Other fatigue] Onset: 05-08-2024 Episodic Results Test Name Value Interpretation Reference Range Facility Abdomen/Pelvis WITH Contrast on 10-30-2024 Abdomen/Pelvis WITH Contrast [facility] Imaging Services [address] [place] [address] Abdomen/Pelvis WITH Contrast MR#: [id number] Acct: [id number] Name: MICHELLE WAKEFIELD Rep #: [id number] : 1950 F 74 From: Raj Gutierres MD PCP: Dr. Rebecca Gonzales, Status: REG CLI Study: Abdomen/Pelvis WITH Contrast Date of Exam: 10/19 Exam# [id number] Ordering Dr: Laurie Baker SALES PORTER-C PROCEDURE: ABDOMEN/PELVIS WITH CONTRAST 10/30/2024 REASON FOR EXAM: ASSESS GI FOR ABNORMALITIES TECHNIQUE: Abdomen and pelvis CT with intravenous and oral contrast. Coronal and Sagittal reconstruction series were provided. PATIENT PREPARATION: Per protocol CONTRAST: 96 mL Isovue-300 One or more dose reduction techniques were used (e.g., Automated exposure control, adjustment of the mA and/or kV according to patient size, use of iterative reconstruction technique. RADIATION DOSE SUMMARY: CTDlvol: 20.2 mGy DLP: 1087 mGycm COMPARISON: Abdominal radiographs on 10/13/2024 FINDINGS: Lung bases: Linear scarring or atelectasis in the lingula. Liver: Unremarkable Gallbladder: Unremarkable Spleen: Normal size. Pancreas: Normal size without evidence of mass surrounding inflammation or ductal dilation. Adrenals: Unremarkable Kidneys: No hydronephrosis or stone. Extrarenal pelvis on the right. Bladder: Unremarkable Reproductive Organs: Uterine calcifications, likely calcified leiomyoma. Bowel: No obstruction or inflammation. Normal appendix. There are tiny diverticula from the transverse duodenum. Colonic diverticulosis. Lymph nodes: Unremarkable Vasculature: Trace aortic atherosclerotic calcifications. Bones: Degenerative changes of the spine. Abdominal wall: Tiny fat containing umbilical hernia. CT/Abdomen/Pelvis WITH Contrast IMPRESSION: 1. No acute intra-abdominal abnormality. 2. Tiny diverticula of the transverse duodenum. 3. Colonic diverticulosis, without evidence of acute diverticulitis. Reading Location: [facility] CC: PHAN Baker; Dr. Rebecca Gonzales DO Infant Caregiver: Signed Normal [facility] Gastroenterology Visit Repor ton 10-24-2024 Gastroenterology Visit Report [facility] [address] [place] [address] OFFICE VISIT Date of Service: 10/24/24 MR#: [id number] Acct: [id number] Name: MICHELLE WAKEFIELD Rep #: [id number] : 1950 Provider: LOPEZ He Age/Sex: 74/F Location: [facility] Status: Signed with Addenda ADDENDUM by LOPEZ [...] 5 mg capsule 5 mg PO DAILY 09/09/22 05/30/25 Hi story mirabegron 50 mg tablet,extended 50 [...] to the office today for establishment with [facility]. KUB 5.19.25 Bowel-gas pattern appears within limits. [...] rate Rhythm: regula (more content not included)... [facility] Ova and Parasites 8623on OP OVA AND PARASITES EX AM, ROUTINE These results were obtained using wet preparation(s) and trichrome stained smear. This test does not include testing for Crytosporidium parvum, Cyclospora, or Microsporidia. One negative specimen does not rule out the possibility of a parasitic infection. ___ TESTING PERFORMED AT [facility]. ORIGINAL REPORT ON FILE IN LAB CONTAINS ADDITIONAL TEST SITE INFORMATION. ___ Ova/Parasite Exam NO OVA, CYSTS, OR PARASITES FOUND. [facility] Comment on above: Performed By: #### L 100.0100, L501.52344, L503.0105, L501.9520, L500.4100, L500.4050, L501.9985 #### [facility] [address] [facility]. [place], [place], [id number] (990) H. PYLORI STOOL AGon 025 H PYLORI STL AG Negative Normal Negative [facility] Comment on above: Result Comment: Perf ormed at: [facility] [id number] Catering Chef: Cornell Blanchard PhD, Phone: [phone] Performed By: #### L 100.0100, L501.43187, L503.0105, L501.9520, L500.4100, L500.4050, L501.9985 #### [facility] [address] [facility] [place], [address] CDIFF (PCR)on 10-14-2024 CDIFF A positive C. diffic ile molecular test does not differentiate between an active C. difficile infection and C. difficile colonization. Use clinical judgement and paired toxin/antigen testing to identify true infection and need for treatment. C diff DNA Spec Ql SANKET+probe Reference Range: Negative Five Below GeneXpert: polymerase chain reaction (PCR) 027 027 [id number] Presumptive Negative *for epidemiolologic???use C. Diff PCR Negative- No toxigenic C. Diff Detected Normal [facility] Comment on above: Performed By: #### L 100.0100, L501.88788, L503.0105, L501.9520, L500.4100, L500.4050, L501.9985 #### [facility] [address] [facility] [place], [address] Clostridium difficile detect ion by polymerase chain reactionOrdered By: Laurie Baker on 10-14-2024 C. difficile DNA SANKET+probe Ql (Unsp spec) [facility] ENTERIC PATHOGEN PANEL STOOL on [...] VIBRIO Not Detected Yersinia Not Detected Normal [facility] Comment on above: Performed By: #### L 100.0100, L501.11811, L503.0105, L501.9520, L500.4100, L500.4050, L501.9985 #### [facility] [address] [facility] [place], [address] Stool Helicobacter pylori an tigen detection by immunoassayOrdered By: Laurie Baker on 10-14-2024 H. pylori Ag IA Ql (Stl) Negative Negative [facility] Comment on above: Performed at: [place] [id number] Director: Cornell Blanchard PhD, Phone: [phone] Stool Lactoferrin/WBCon 09-26 WBCST Normal Reference Ran ge = Negative Fecal WBC Lactoferrin A Positive: Fecal WBC Lactoferrin present A Normal [facility] Comment on above: Performed By: #### L 100.0100, L501.75463, L503.0105, L501.9520, L500.4100, L500.4050, L501.9985 #### [facility] [address] [facility] [place], [address] Stool lactoferrin detection by immunoassayOrdered By: Laurie Baker on 10-14-2024 Lactoferrin IA Ql (Stl) [facility] Abdomen Single Viewon 2024 Abdomen Single View [facility] Imaging Services [address] [place] [address] Abdomen Single View MR#: [id number] Acct: [id number] Name: MICHELLE WAKEFIELD Rep #: [id number] : 1950 F 74 From: Ryan Bishop MD PCP: Dr. Rebecca Gonzales DO Status: REG CLI Study: Abdomen Single View Date of Exam: 10/13/24 Exam# [id number] Ordering Dr: Laurie Baker PROCEDURE: ABDOMEN SINGLE VIEW 10/13/2024 REASON FOR [...] or evidence of mass effect. Reading Location: [facility] CC: SALES PORTER-C Laurie Baker; Dr. Rebecca Gonzales DO Infant Caregiver: Signed Normal [facility] Quantiferon TB-Gold+on 07-12 QFT MITOGEN YENI > 10.00 Normal . [facility] Comment on above: Performed By: #### L 100.0100, L501.20889, L503.0105, L501.9520, L500.4100, L500.4050, L501.9985 #### [facility] [address] [place], [place], [phone] (867) QFT NIL VALUE 0.01 IU/mL Normal . [facility] Comment on above: Performed By: #### L 100.0100, L501.72379, L503.0105, L501.9520, L500.4100, L500.4050, L501.9985 #### [facility] [address] [place], [place], [id number] (320 QFT TB GOLD+ Comment Normal . [facility] Comment on above: Result Comment: [...] for the test. Performed By: #### L 100.0100, L501.68019, L503.0105, L501.9520, L500.4100, L500.4050, L501.9985 #### [facility] [address] [place], [place], [id number] QFT TB POS CRIT Negative Normal Negative [facility] Comment on above: Result Comment: [...] interferon gamma. Chemiluminescence immunoassay methodology Performed at: [facility] [id number] Catering Chef: Cornell Blanchard PhD, Phone: [phone] Performed By: #### L 100.0100, L501.26996, L503.0105, L501.9520, L500.4100, L500.4050, L501.9985 #### [facility] [address] [place], [place], [id number] QFT TB1+ AG YENI 0.03 IU/mL Normal . [facility] Comment on above: Performed By: #### L 100.0100, L501.06664, L503.0105, L501.9520, L500.4100, L500.4050, L501.9985 #### [facility] [address] [facility] [place], [address] QFT TB2+ AG YENI 0.01 IU/mL Normal . [facility] Comment on above: Performed By: #### L 100.0100, L501.96711, L503.0105, L501.9520, L500.4100, L500.4050, L501.9985 #### [facility] [address] [place], [address] Absolute lymphocyte countOrd ered By: Agustin Jennings on 07-10-2024 Lymphocytes Auto (Unsp spec) [#/Vol] 1.70 10*3/uL 0.83-4.51 [facility] Absolute neutrophil countOrd ered By: Agustin Jennings on 07-10-2024 Neutrophils (Bld) [#/Vol] 6.8 10*3/uL 2.0-7.7 [facility] Automated lymphocyte count a s percentage of total leukocytesOrdered By: Agustin Jennings on 07-10-2024 Lymphocytes/100 WBC Auto (Unsp spec) 18.4 % Low 19-41 [facility] Basophil percentageOrdered B y: Agustin Jennings on 07-10-2024 Basophils/100 WBC (Bld) 0.8 % 0-1 [facility] Bilirubin directOrdered By: Agustin Jennings on 07-10-2024 Bilirubin.direct [Mass/Vol] 0.11 mg/dL 0.00-0.30 [facility] Bilirubin, totalOrdered By: Agustin Jennings on 07-10-2024 Bilirubin [Mass/Vol] 0.30 mg/dL 0.20-1.00 [facility] Comment on above: For patients on eltr ombopag therapy, use of Dimension [place] TBIL is not recommended. CBC W/Diff, Automatedon 06-28 Absolute Lymph 1.70 X10 3/uL Normal 0.83-4.51 [facility] Comment on above: Performed By: #### L 3400.8000, L100.0100, L500.3400 #### [facility] [address] [place], [place], [id number] Absolute Neut 6.8 X10 3/uL Normal 2.0-7.7 [facility] Comment on above: Performed By: #### L 3400.8000, L100.0100, L500.3400 #### [facility] [address] [place], [address] Basophils/100 WBC (Bld) 0.8 % Normal 0-1 [facility] Comment on above: Performed By: #### L 3400.8000, L100.0100, L500.3400 #### [facility] [address] [place], [address] Eosinophils/100 WBC (Bld) 1.0 % Normal 0-5 [facility] Comment on above: Performed By: #### L 3400.8000, L100.0100, L500.3400 #### [facility] [address] [place], [address] Erythrocyte distribution width (RBC) [Ratio] 14.0 % Normal 11.6-14.6 [facility] Comment on above: Performed By: #### L 3400.8000, L100.0100, L500.3400 #### [facility] [address] [place], [address] Hematocrit (Bld) [Volume fraction] 46.4 % Normal 37-47 [facility] Comment on above: Performed By: #### L 3400.8000, L100.0100, L500.3400 #### [facility] [address] [place], [address] Hemoglobin (Bld) [Mass/Vol] 14.6 g/dL Normal 12.0-15.0 [facility] Comment on above: Performed By: #### L 3400.8000, L100.0100, L500.3400 #### [facility] [address] [place], [address] IG% 0.300 Normal 0.0-0.9 [facility] Comment on above: Result Comment: IG% - Immature Granulocytes (promyelocytes, myelocytes and metamyelocytes) > 1% indicates that a LEFT SHIFT is Present. Performed By: #### L 3400.8000, L100.0100, L500.3400 #### [facility] [address] [place], [address] Lymphocytes/100 WBC (Bld) 18.4 % Low 19-41 [facility] Comment on above: Performed By: #### L 3400.8000, L100.0100, L500.3400 #### [facility] [address] [place], [address] MCH (RBC) [Entitic mass] 29.7 pg Normal 27.0-32.0 [facility] Comment on above: Performed By: #### L 3400.8000, L100.0100, L500.3400 #### [facility] [address] [place], [address] MCHC (RBC) [Mass/Vol] 31.5 g/dL Low 32-36 [facility] Comment on above: Performed By: #### L 3400.8000, L100.0100, L500.3400 #### [facility] [address] [place], [address] MCV (RBC) [Entitic vol] 94.3 fL Normal 81-99 [facility] Comment on above: Performed By: #### L 3400.8000, L100.0100, L500.3400 #### [facility] [address] [place], [address] Monocytes/100 WBC (Bld) 6.6 % Normal 0-10 [facility] Comment on above: Performed By: #### L 3400.8000, L100.0100, L500.3400 #### [facility] [address] [place], [address] Neutrophils/100 WBC (Bld) 72.9 % High 47-70 [facility] Comment on above: Performed By: #### L 3400.8000, L100.0100, L500.3400 #### [facility] [address] [place], [address] Nucleated RBC (Bld) [#/Vol] 0 10*3/uL Normal 0-5 [facility] Comment on above: Performed By: #### L 3400.8000, L100.0100, L500.3400 #### [facility] [address] [place], [address] Platelet mean volume (Bld) [Entitic vol] 10.4 fL Normal 6.2-12.0 [facility] Comment on above: Performed By: #### L 3400.8000, L100.0100, L500.3400 #### [facility] [address] [place], [address] Platelets (Bld) [#/Vol] 246 10*3/uL Normal 150-450 [facility] Comment on above: Performed By: #### L 3400.8000, L100.0100, L500.3400 #### [facility] [address] [place], [address] RBC (Bld) [#/Vol] 4.92 10*6/uL Normal 4.2-5.4 [facility] Comment on above: Performed By: #### L 3400.8000, L100.0100, L500.3400 #### [facility] [address] [place], [address] RDW SD 48.3 fl High 35.1-43.9 [facility] Comment on above: Performed By: #### L 3400.8000, L100.0100, L500.3400 #### [facility] [address] [place], [address] WBC (Bld) [#/Vol] 9.3 10*3/uL Normal 4.4-11.0 [facility] Comment on above: Performed By: #### L 3400.8000, L100.0100, L500.3400 #### [facility] [address] [place], [address] Eosinophil percentageOrdered By: Agustin Jennings on 07-10-2024 Eosinophils/100 WBC (Bld) 1.0 % 0-5 [facility] Erythrocyte distribution wid th ratioOrdered By: Agustin Jennings on 07-10-2024 Erythrocyte distribution width (RBC) [Ratio] 14.0 % 11.6-14.6 [facility] Erythrocyte distribution wid th standard deviationOrdered By: Agustin Jennings on 07-10-2024 Erythrocyte distribution width (RBC) [Ratio] 48.3 fl High 35.1-43.9 [facility] Hematocrit Auto (Bld) [Volum e fraction]Ordered By: Agustin Jennings on 07-10-2024 Hematocrit (Bld) [Volume fraction] 46.4 % 37-47 [facility] Hemoglobin measurementOrdere d By: Agustin Jennings on 07-10-2024 Hemoglobin (Bld) [Mass/Vol] 14.6 g/dL 12.0-15.0 [facility] Immature granulocytes/100 WB C Auto (Bld)Ordered By: Agustin Jennings on 07-10-2024 Immature granulocytes/100 WBC (Bld) 0.300 % 0.0-0.9 [facility] Comment on above: IG% - Immature Granu locytes (promyelocytes, myelocytes and metamyelocytes) > 1% indicates that a LEFT SHIFT is Present. Laboratory - Chemistry and C hemistry - challengeOrdered By: Agustin Jennings on 07-10-2024 AST [Catalytic activity/Vol] 15 U/L 15-37 [facility] Liver Profileon 07-10-2024 Albumin [Mass/Vol] 3.7 g/dL Normal 3.2-5.0 [facility] Comment on above: Performed By: #### L 3400.8000, L100.0100, L500.3400 #### [facility] [address] [place], [address] ALK P 109 U/L Normal 45-117 [facility] Comment on above: Performed By: #### L 3400.8000, L100.0100, L500.3400 #### [facility] [address] [place], [address] ALT [Catalytic activity/Vol] 30 U/L Normal 13-56 [facility] Comment on above: Performed By: #### L 3400.8000, L100.0100, L500.3400 #### [facility] [address] [place], [address] AST [Catalytic activity/Vol] 15 U/L Normal 15-37 [facility] Comment on above: Performed By: #### L 3400.8000, L100.0100, L500.3400 #### [facility] [address] [place], [address] Bilirubin [Mass/Vol] 0.30 mg/dL Normal 0.20-1.00 [facility] Comment on above: Result Comment: For patients on eltrombopag therapy, use of Dimension [place] TBIL is not recommended. Performed By: #### L 3400.8000, L100.0100, L500.3400 #### [facility] [address] [place], [address] Bilirubin.direct [Mass/Vol] 0.11 mg/dL Normal 0.00-0.30 [facility] Comment on above: Performed By: #### L 3400.8000, L100.0100, L500.3400 #### [facility] [address] [place], [address] Globulin (S) [Mass/Vol] 3.7 g/dL Normal 2.2-4.2 [facility] Comment on above: Performed By: #### L 3400.8000, L100.0100, L500.3400 #### [facility] [address] [place], [address] T PROT 7.4 g/dL Normal 6.4-8.2 [facility] Comment on above: Performed By: #### L 3400.8000, L100.0100, L500.3400 #### [facility] [address] [place], [address] MCV (mean corpuscular volume ) determinationOrdered By: Agustin Jennings on 07-10-2024 MCV (RBC) [Entitic vol] 94.3 fL 81-99 [facility] Mean corpuscular hemoglobin (MCH) determinationOrdered By: Agustin Jennings on 07-10-2024 MCH (RBC) [Entitic mass] 29.7 pg 27.0-32.0 [facility] Mean corpuscular hemoglobin concentration (MCHC) determinationOrdered By: Agustin Jennings on 07-10-2024 MCHC (RBC) [Mass/Vol] 31.5 g/dL Low 32-36 [facility] Mean platelet volume determi nationOrdered By: Agustin Jennings on 07-10-2024 Platelet mean volume (Bld) [Entitic vol] 10.4 fL 6.2-12.0 [facility] Monocyte percentageOrdered B y: Agustin Jennings on 07-10-2024 Monocytes/100 WBC (Bld) 6.6 % 0-10 [facility] Neutrophil percentageOrdered By: Agustin Jennings on 07-10-2024 Neutrophils/100 WBC (Bld) 72.9 % High 47-70 [facility] [facility] Nucleated red blood cell per centageOrdered By: Agustin Jennings on 07-10-2024 Nucleated RBC/100 WBC (Bld) [Ratio] 0 % 0-5 [facility] Platelet countOrdered By: José Luis Jennings on 07-10-2024 Platelets (Bld) [#/Vol] 246 10*3/uL 150-450 [facility] Qualitative QuantiFERON-TB g old in tube testOrdered By: Agustin Jennings on 07-10-2024 M. tuberculosis tuberculin stim IFN-g Ql (Bld) 0.03 IU/mL . [facility] RBC Auto (Bld) [#/Vol]Ordere d By: Agustin Jennings on 07-10-2024 RBC (Bld) [#/Vol] 4.92 10*6/uL 4.2-5.4 [facility] Serum globulin measurementOr dered By: Agustin Jennings on 07-10-2024 Globulin (S) [Mass/Vol] 3.7 g/dL 2.2-4.2 [facility] Serum or plasma alanine swanson otransferase (ALT) measurementOrdered By: Agustin Jennings on 07-10-2024 ALT [Catalytic activity/Vol] 30 U/L 13-56 [facility] Serum or plasma albumin christie urement (mass/volume)Ordered By: Agustin Jennings on 07-10-2024 Albumin [Mass/Vol] 3.7 g/dL 3.2-5.0 [facility] Serum or plasma alkaline luisito sphatase measurementOrdered By: Agustin Jennings on 07-10-2024 ALP [Catalytic activity/Vol] 109 U/L 45-117 [facility] Total proteinOrdered By: Aime Jennings on 07-10-2024 Protein [Mass/Vol] 7.4 g/dL 6.4-8.2 [facility] White blood cell (WBC) count Ordered By: Agustin Jennings on 07-10-2024 WBC (Bld) [#/Vol] 9.3 10*3/uL 4.4-11.0 [facility] Dexa Bone Density Studyon Dexa Bone Density Study [facility] Imaging Services [address] [place] [address] [id number] Dexa Bone Density Study MR#: [id number] Acct: [id number] Name: MICHELLE WAKEFIELD Rep #: [id number] : 1950 F 73 From: Ryan Shah MD PCP: Dr. Rebceca Gonzales, Status: REG CLI Study: Dexa Bone Density Study Date of Exam: 05/27/24 Exam# [id number] Ordering Dr: Rebecca Gonzales DO [id number] STUDY: DUAL ENERGY X-RAY ABSORPTIOMETRY / DXA [...] [employer] www [email or web address] Electronically Signed: Eugneio Shah MD at 11:31 EST , CC: Dr. Rebecca Gonzales DO Infant Caregiver: Signed Normal [facility] SCRN MAMM (CAD)W/ADRIANA BILATo n 05-27-2024 SCRN MAMM (CAD)W/ADRIANA BILAT [facility] Imaging Services [address] [place] [address] [id number] SCRN MAMM (CAD)W/ADRIANA BILAT MR#: [id number] Acct: [id number] Name: MICHELLE WAKEFIELD Rep #: [id number] : 1950 F 73 From: Yasmani Lee MD PCP: Dr. Rebecca Gonzales DO Status: REG CLI Study: SCRN MAMM (CAD)W/ADRIANA BILAT Date of Exam: 04/29 06/20 Exam# [id number] Ordering Dr: Rebecca Gonzales DO [id number] MAMMOGRAPHY - BILATERAL SCREENING 3-D TOMOSYNTHESIS REASON [...] at 20:01 EST , CC: Dr. Rebecca Gonzales, DO Infant Caregiver: Signed Normal [facility] CBC W/Diff, Automatedon 11- Absolute Lymph 1.53 X10 3/uL Normal 0.83-4.51 [facility] Comment on above: Performed By: #### L 100.0100, L501.34003, L503.0105, L501.9520, L500.4100, L500.4050, L501.9985 #### [facility] [address] [place], [place], [id number] (400) Absolute Neut 4.7 X10 3/uL Normal 2.0-7.7 [facility] Comment on above: Performed By: #### L 100.0100, L501.14635, L503.0105, L501.9520, L500.4100, L500.4050, L501.9985 #### [facility] [address] [place], [address] Basophils/100 WBC (Bld) 0.7 % Normal 0-1 [facility] Comment on above: Performed By: #### L 100.0100, L501.93310, L503.0105, L501.9520, L500.4100, L500.4050, L501.9985 #### [facility] [address] [place], [address] Eosinophils/100 WBC (Bld) 1.3 % Normal 0-5 [facility] Comment on above: Performed By: #### L 100.0100, L501.50777, L503.0105, L501.9520, L500.4100, L500.4050, L501.9985 #### [facility] [address] [place], [address] Erythrocyte distribution width (RBC) [Ratio] 13.7 % Normal 11.6-14.6 [facility] Comment on above: Performed By: #### L 100.0100, L501.92223, L503.0105, L501.9520, L500.4100, L500.4050, L501.9985 #### [facility] [address] [place], [address] Hematocrit (Bld) [Volume fraction] 44.2 % Normal 37-47 [facility] Comment on above: Performed By: #### L 100.0100, L501.06019, L503.0105, L501.9520, L500.4100, L500.4050, L501.9985 #### [facility] [address] [place], [address] Hemoglobin (Bld) [Mass/Vol] 14.2 g/dL Normal 12.0-15.0 [facility] Comment on above: Performed By: #### L 100.0100, L501.28134, L503.0105, L501.9520, L500.4100, L500.4050, L501.9985 #### [facility] [address] [place], [address] IG% 0.400 Normal 0.0-0.9 [facility] Comment on above: Result Comment: IG% - Immature Granulocytes (promyelocytes, myelocytes and metamyelocytes) > 1% indicates that a LEFT SHIFT is Present. Performed By: #### L 100.0100, L501.56611, L503.0105, L501.9520, L500.4100, L500.4050, L501.9985 #### [facility] [address] [place], [address] Lymphocytes/100 WBC (Bld) 22.3 % Normal 19-41 [facility] Comment on above: Performed By: #### L 100.0100, L501.80876, L503.0105, L501.9520, L500.4100, L500.4050, L501.9985 #### [facility] [address] [place], [address] MCH (RBC) [Entitic mass] 29.9 pg Normal 27.0-32.0 [facility] Comment on above: Performed By: #### L 100.0100, L501.50318, L503.0105, L501.9520, L500.4100, L500.4050, L501.9985 #### [facility] [address] [place], [address] MCHC (RBC) [Mass/Vol] 32.1 g/dL Normal 32-36 [facility] Comment on above: Performed By: #### L 100.0100, L501.50977, L503.0105, L501.9520, L500.4100, L500.4050, L501.9985 #### [facility] [address] [place], [address] MCV (RBC) [Entitic vol] 93.1 fL Normal 81-99 [facility] Comment on above: Performed By: #### L 100.0100, L501.44982, L503.0105, L501.9520, L500.4100, L500.4050, L501.9985 #### [facility] [address] [place], [address] Monocytes/100 WBC (Bld) 6.1 % Normal 0-10 [facility] Comment on above: Performed By: #### L 100.0100, L501.21137, L503.0105, L501.9520, L500.4100, L500.4050, L501.9985 #### [facility] [address] [place], [address] Neutrophils/100 WBC (Bld) 69.2 % Normal 47-70 [facility] Comment on above: Performed By: #### L 100.0100, L501.94962, L503.0105, L501.9520, L500.4100, L500.4050, L501.9985 #### [facility] [address] [place], [address] Nucleated RBC (Bld) [#/Vol] 0 10*3/uL Normal 0-5 [facility] Comment on above: Performed By: #### L 100.0100, L501.01359, L503.0105, L501.9520, L500.4100, L500.4050, L501.9985 #### [facility] [address] [place], [address] Platelet mean volume (Bld) [Entitic vol] 10.9 fL Normal 6.2-12.0 [facility] Comment on above: Performed By: #### L 100.0100, L501.53198, L503.0105, L501.9520, L500.4100, L500.4050, L501.9985 #### [facility] [address] [place], [address] Platelets (Bld) [#/Vol] 212 10*3/uL Normal 150-450 [facility] Comment on above: Performed By: #### L 100.0100, L501.92528, L503.0105, L501.9520, L500.4100, L500.4050, L501.9985 #### [facility] [address] [place], [address] RBC (Bld) [#/Vol] 4.75 10*6/uL Normal 4.2-5.4 [facility] Comment on above: Performed By: #### L 100.0100, L501.06789, L503.0105, L501.9520, L500.4100, L500.4050, L501.9985 #### [facility] [address] [place], [address] RDW SD 47.0 fl High 35.1-43.9 [facility] Comment on above: Performed By: #### L 100.0100, L501.29918, L503.0105, L501.9520, L500.4100, L500.4050, L501.9985 #### [facility] [address] [place], [address] WBC (Bld) [#/Vol] 6.9 10*3/uL Normal 4.4-11.0 [facility] Comment on above: Performed By: #### L 100.0100, L501.54482, L503.0105, L501.9520, L500.4100, L500.4050, L501.9985 #### [facility] [address] [place], [address] Comprehensive Metabolic Prof [facility] 04-10-2024 Albumin [Mass/Vol] 3.8 g/dL Normal 3.2-5.0 [facility] Comment on above: Performed By: #### L 100.0100, L501.35521, L503.0105, L501.9520, L500.4100, L500.4050, L501.9985 #### [facility] [address] [place], [address] Albumin/Globulin [Mass ratio] 1.2 {ratio} Normal 0.9-2.4 [facility] Comment on above: Performed By: #### L 100.0100, L501.89477, L503.0105, L501.9520, L500.4100, L500.4050, L501.9985 #### [facility] [address] [place], [address] ALK P 66 U/L Normal 45-117 [facility] Comment on above: Performed By: #### L 100.0100, L501.59117, L503.0105, L501.9520, L500.4100, L500.4050, L501.9985 #### [facility] [address] [place], [address] ALT [Catalytic activity/Vol] 29 U/L Normal 13-56 [facility] Comment on above: Performed By: #### L 100.0100, L501.79120, L503.0105, L501.9520, L500.4100, L500.4050, L501.9985 #### [facility] [address] [place], [address] AST [Catalytic activity/Vol] 19 U/L Normal 15-37 [facility] Comment on above: Performed By: #### L 100.0100, L501.46447, L503.0105, L501.9520, L500.4100, L500.4050, L501.9985 #### [facility] [address] [place], [address] Bilirubin [Mass/Vol] 0.40 mg/dL Normal 0.20-1.00 [facility] Comment on above: Result Comment: For patients on eltrombopag therapy, use of Dimension [place] TBIL is not recommended. Performed By: #### L 100.0100, L501.54072, L503.0105, L501.9520, L500.4100, L500.4050, L501.9985 #### [facility] [address] [place], [address] BUN/CRE 20.1 RATIO High 10-20 [facility] Comment on above: Performed By: #### L 100.0100, L501.71910, L503.0105, L501.9520, L500.4100, L500.4050, L501.9985 #### [facility] [address] [place], [address] CA,Total 9.0 mg/dL Normal 8.5-10.1 [facility] Comment on above: Performed By: #### L 100.0100, L501.39936, L503.0105, L501.9520, L500.4100, L500.4050, L501.9985 #### [facility] [address] [place], [address] Chloride [Moles/Vol] 109 mmol/L High 98-107 [facility] Comment on above: Performed By: #### L 100.0100, L501.69089, L503.0105, L501.9520, L500.4100, L500.4050, L501.9985 #### [facility] [address] [place], [address] CO2 [Moles/Vol] 28.0 mmol/L Normal 21.0-32.0 [facility] Comment on above: Performed By: #### L 100.0100, L501.53322, L503.0105, L501.9520, L500.4100, L500.4050, L501.9985 #### [facility] [address] [place], [address] Creatinine [Mass/Vol] 0.94 mg/dL Normal 0.55-1.02 [facility] Comment on above: Result Comment: The validity of the calculated GFR GFRAA in patients over 70 years has not been determined. Clinical correlation is essential. Performed By: #### L 100.0100, L501.94509, L503.0105, L501.9520, L500.4100, L500.4050, L501.9985 #### [facility] [address] [place], [address] EST GFR - AA 74 mL/min Normal >60 [facility] Comment on above: Result Comment: Afri can [place] GFR Calc Performed By: #### L 100.0100, L501.41354, L503.0105, L501.9520, L500.4100, L500.4050, L501.9985 #### [facility] [address] [place], [address] GAP 4 Low 5-15 [facility] Comment on above: Performed By: #### L 100.0100, L501.27902, L503.0105, L501.9520, L500.4100, L500.4050, L501.9985 #### [facility] [address] [place], [address] GFR/1.73 sq M.predicted among non-blacks MDRD (S/P/Bld) [Vol rate/Area] 61 mL/min/{1.73_m2} Normal >60 [facility] Comment on above: Result Comment: Non- GFR Calc Performed By: #### L 100.0100, L501.89375, L503.0105, L501.9520, L500.4100, L500.4050, L501.9985 #### [facility] [address] [place], [address] Globulin (S) [Mass/Vol] 3.3 g/dL Normal 2.2-4.2 [facility] Comment on above: Performed By: #### L 100.0100, L501.92041, L503.0105, L501.9520, L500.4100, L500.4050, L501.9985 #### [facility] [address] [place], [address] Glucose [Mass/Vol] 96 mg/dL Normal 74-106 [facility] Comment on above: Performed By: #### L 100.0100, L501.32403, L503.0105, L501.9520, L500.4100, L500.4050, L501.9985 #### [facility] [address] [place], [address] Potassium [Moles/Vol] 4.1 mmol/L Normal 3.5-5.1 [facility] Comment on above: Performed By: #### L 100.0100, L501.23584, L503.0105, L501.9520, L500.4100, L500.4050, L501.9985 #### [facility] [address] [place], [address] Sodium [Moles/Vol] 141 mmol/L Normal 136-145 [facility] Comment on above: Performed By: #### L 100.0100, L501.53035, L503.0105, L501.9520, L500.4100, L500.4050, L501.9985 #### [facility] [address] [place], [address] T PROT 7.1 g/dL Normal 6.4-8.2 [facility] Comment on above: Performed By: #### L 100.0100, L501.77824, L503.0105, L501.9520, L500.4100, L500.4050, L501.9985 #### [facility] [address] [place], [address] Urea nitrogen [Mass/Vol] 19 mg/dL High 7-18 [facility] Comment on above: Performed By: #### L 100.0100, L501.00921, L503.0105, L501.9520, L500.4100, L500.4050, L501.9985 #### [facility] [address] [place], [address] Free T3on 04-10-2024 Free T3 [Mass/Vol] 3.1 pg/mL Normal 2.18-3.98 [facility] Comment on above: Performed By: #### L 100.0100, L501.53746, L503.0105, L501.9520, L500.4100, L500.4050, L501.9985 #### [facility] [address] [place], [address] Hemoglobin A1con 04-10-2024 HbA1c (Bld) [Mass fraction] 6.0 % High 3.8-5.6 [facility] Comment on above: Result Comment: Norm al < 5.7 % Prediabetic 5.7 - 6.4 % Diabetic >or= 6.5 % Please note range changes. Performed By: #### L 100.0100, L501.45452, L503.0105, L501.9520, L500.4100, L500.4050, L501.9985 #### [facility] [address] [place], [address] Lipid Profileon 04-10-2024 Cholesterol [Mass/Vol] 168 mg/dL Normal 200 [facility] Comment on above: Result Comment: <200 mg/dL Desirable 200-240 mg/dL Borderline >240 mg/dL High Risk Performed By: #### L 100.0100, L501.04935, L503.0105, L501.9520, L500.4100, L500.4050, L501.9985 #### [facility] [address] [place], [address] Cholesterol in HDL [Mass/Vol] 51 mg/dL Normal [facility] Comment on above: Result Comment: The drugs N-Acetylcysteine and Metamizole may falsely depress this assay. Reference Range HDL <40 mg/dL Low HDL Cholesterol HDL >or= 60 mg/dL High HDL Cholesterol Performed By: #### L 100.0100, L501.22616, L503.0105, L501.9520, L500.4100, L500.4050, L501.9985 #### [facility] [address] [place], [address] Cholesterol in LDL [Mass/Vol] 84 mg/dL Normal 0-130 [facility] Comment on above: Performed By: #### L 100.0100, L501.02072, L503.0105, L501.9520, L500.4100, L500.4050, L501.9985 #### [facility] [address] [place], [address] Cholesterol in VLDL [Mass/Vol] 33 mg/dL Normal 5-40 [facility] Comment on above: Performed By: #### L 100.0100, L501.91003, L503.0105, L501.9520, L500.4100, L500.4050, L501.9985 #### [facility] [address] [place], [address] Triglyceride [Mass/Vol] 167 mg/dL Normal [facility] Comment on above: Result Comment: The drugs N-Acetylcysteine and Metamizole may falsely depress this assay. Serum Triglycerides Reference Interval Normal <150 mg/dL Borderline high 150 - 199 mg/dL High 200 - 499 mg/dL Very High > or = 500 mg/dL Performed By: #### L 100.0100, L501.01727, L503.0105, L501.9520, L500.4100, L500.4050, L501.9985 #### [facility] [address] [place], [address] Thyroid Stim Hormone (TSH)on 04-10-2024 TSH 0.432 uIU/mL Normal 0.358-3.740 [facility] Comment on above: Performed By: #### L 100.0100, L501.47833, L503.0105, L501.9520, L500.4100, L500.4050, L501.9985 #### [facility] [address] [facility] [place], [place], [id number] Vitamin B12on 04-10-2024 Cobalamin (Vitamin B12) [Mass/Vol] 395 pg/mL Normal 211-911 [facility] Comment on above: Performed By: #### L 100.0100, L501.36637, L503.0105, L501.9520, L500.4100, L500.4050, L501.9985 #### [facility] [address] [facility] [place], [place], [id number] Absolute lymphocyte countOrd ered By: Agustin Jennings on 07-09-2023 Lymphocytes Auto (Unsp spec) [#/Vol] 1.56 10*3/uL 0.83-4.51 [facility] Automated lymphocyte count a s percentage of total leukocytesOrdered By: Agustin Jennings on 07-09-2023 Lymphocytes/100 WBC Auto (Unsp spec) 23.6 % 19-41 [facility] Basophil percentageOrdered B y: Agustin Jennings on 07-09-2023 Basophils/100 WBC (Bld) 0.8 % 0-1 [facility] Bilirubin [Mass/Vol] 0.30 mg/dL 0.20-1.00 [facility] Comment on above: For patients on eltr ombopag therapy, use of Dimension [place] TBIL is not recommended. Eosinophils/100 WBC (Bld) 1.5 % 0-5 [facility] Hemoglobin (Bld) [Mass/Vol] 14.0 g/dL 12.0-15.0 [facility] Monocytes/100 WBC (Bld) 7.3 % 0-10 [facility] Neutrophils (Bld) [#/Vol] 4.4 10*3/uL 2.0-7.7 [facility] Neutrophils/100 WBC (Bld) 66.5 % 47-70 [facility] Protein [Mass/Vol] 6.9 g/dL 6.4-8.2 [facility] WBC (Bld) [#/Vol] 6.6 10*3/uL 4.4-11.0 [facility] Determination of erythrocyte mean corpuscular volume (MCV)Ordered By: Agustin Jennings on 07-09-2023 MCV (RBC) [Entitic vol] 92.2 fL 81-99 [facility] Direct bilirubinOrdered By: Agustin Jennings on 07-09-2023 Bilirubin.direct [Mass/Vol] 0.08 mg/dL 0.00-0.30 [facility] Erythrocyte distribution wid th ratioOrdered By: Agustin Jennings on 07-09-2023 Erythrocyte distribution width (RBC) [Ratio] 13.8 % 11.6-14.6 [facility] Erythrocyte distribution wid th standard deviationOrdered By: Agustin Jennings on 07-09-2023 Erythrocyte distribution width (RBC) [Entitic vol] 47.1 fL 35.1-43.9 [facility] Hematocrit Auto (Bld) [Volum e fraction]Ordered By: Agustin Jennings on 07-09-2023 Hematocrit (Bld) [Volume fraction] 43.5 % 37-47 [facility] Immature granulocytes/100 WB C Auto (Bld)Ordered By: Agustin Jennings on 07-09-2023 Immature granulocytes/100 WBC (Bld) 0.300 % 0.0-0.9 [facility] Comment on above: IG% - Immature Granu locytes (promyelocytes, myelocytes and metamyelocytes) > 1% indicates that a LEFT SHIFT is Present. Laboratory - Chemistry and C hemistry - challengeOrdered By: Agustin Jennings on 07-09-2023 ALP [Catalytic activity/Vol] 65 U/L 45-117 [facility] ALT [Catalytic activity/Vol] 26 U/L 13-56 [facility] Globulin (S) [Mass/Vol] 3.2 g/dL 2.2-4.2 [facility] - Hematology and Cell countsOrdered By: Agustin Jennings on 07-09-2023 MCH (RBC) [Entitic mass] 29.7 pg 27.0-32.0 [facility] MCHC (RBC) [Mass/Vol] 32.2 g/dL 32-36 [facility] Nucleated RBC/100 WBC (Bld) [Ratio] 0 % 0-5 [facility] Platelet mean volume (Bld) [Entitic vol] 10.9 fL 6.2-12.0 [facility] Platelets (Bld) [#/Vol] 206 10*3/uL 150-450 [facility] Qualitative QuantiFERON-TB g old in tube testOrdered By: Agustin Jennings on 07-09-2023 M. tuberculosis tuberculin stim IFN-g Ql (Bld) 0.03 IU/mL . [facility] RBC Auto (Bld) [#/Vol]Ordere d By: Agustin Jennings on 07-09-2023 RBC (Bld) [#/Vol] 4.72 10*6/uL 4.2-5.4 [facility] Thin prep Papanicolaou smear with manual screeningOrdered By: Agustin Jennings on 07-09-2023 Thin prep Papanicolaou smear with manual screening 3.7 g/dL 3.2-5.0 [facility] Thin prep Papanicolaou smear with manual screening 18 U/L 15-37 [facility] Thin prep Papanicolaou smear with manual screening Comment . [facility] Comment on above: QuantiFERON-TB Gold [...] smear with manual screening 0.02 IU/mL . [facility] Thin prep Papanicolaou smear with manual screening 0.01 IU/mL . [facility] Thin prep Papanicolaou smear with manual screening > 10.00 IU/mL . [facility] Thin prep Papanicolaou smear with manual screening Negative Negative [facility] Comment on above: No response [...] the productionof interferon gamma. Chemiluminescence immunoassaymethodologyPerformed at: [facility] [id number] Director: Cornell Blanchard PhD, Phone: [phone] Absolute lymphocyte countOrd ered By: Rebecca Gonzales on 04-10-2023 Lymphocytes Auto (Unsp spec) [#/Vol] 1.35 10*3/uL 0.83-4.51 [facility] Basophil percentageOrdered B y: Rebecca Gonzales on 04-10-2023 Basophils/100 WBC (Bld) 1.2 % 0-1 [facility] Bilirubin [Mass/Vol] 0.40 mg/dL 0.20-1.00 [facility] Comment on above: For patients on eltr ombopag therapy, use of Dimension [place] TBIL is not recommended. Chloride [Moles/Vol] 108 mmol/L 98-107 [facility] Cholesterol [Mass/Vol] 160 mg/dL <200 [facility] Comment on above: <200 mg/dL Desirable 200-240 mg/dL Borderline >240 mg/dL High Risk Eosinophils/100 WBC (Bld) 2.2 % 0-5 [facility] Glucose [Mass/Vol] 99 mg/dL 74-106 [facility] Neutrophils (Bld) [#/Vol] 4.9 10*3/uL 2.0-7.7 [facility] Neutrophils/100 WBC (Bld) 70.6 % 47-70 [facility] Potassium [Moles/Vol] 4.4 mmol/L 3.5-5.1 [facility] Protein [Mass/Vol] 6.9 g/dL 6.4-8.2 [facility] Sodium [Moles/Vol] 141 mmol/L 136-145 [facility] Triglyceride [Mass/Vol] 185 mg/dL <199 [facility] Comment on above: The drugs N-Acetylcy steine and Metamizole may falsely depress this assay.Serum Triglycerides Reference Interval Normal <150 mg/dL Borderline high 150 - 199 mg/dL High 200 - 499 mg/dL Very High > or = 500 mg/dL WBC (Bld) [#/Vol] 6.9 10*3/uL 4.4-11.0 [facility] Blood erythrocytes count (nu mber/volume)Ordered By: Rebecca Gonzales on 04-10-2023 RBC (Bld) [#/Vol] 4.66 10*6/uL 4.2-5.4 [facility] Blood hemoglobin measurement (mass/volume)Ordered By: Rebecca Gonzales on 04-10-2023 Hemoglobin (Bld) [Mass/Vol] 13.9 g/dL 12.0-15.0 [facility] Blood lymphocytes/100 leukoc ytesOrdered By: Rebecca Gonzales on 04-10-2023 Lymphocytes/100 WBC (Bld) 19.5 % 19-41 [facility] Blood monocytes/100 leukocyt esOrdered By: Rebecca Gonzales on 04-10-2023 Monocytes/100 WBC (Bld) 6.2 % 0-10 [facility] Blood platelet mean volumeOr dered By: Rebecca Gonzales on 04-10-2023 Platelet mean volume (Bld) [Entitic vol] 10.9 fL 6.2-12.0 [facility] Determination of erythrocyte mean corpuscular volume (MCV)Ordered By: Rebecca Gonzales on 04-10-2023 MCV (RBC) [Entitic vol] 95.5 fL 81-99 [facility] Hematocrit Auto (Bld) [Volum e fraction]Ordered By: Rebecca Gonzales on 04-10-2023 Hematocrit (Bld) [Volume fraction] 44.5 % 37-47 [facility] Laboratory - Chemistry and C hemistry - challengeOrdered By: Rebecca Gonzales on 04-10-2023 ALP [Catalytic activity/Vol] 61 U/L 45-117 [facility] ALT [Catalytic activity/Vol] 25 U/L 13-56 [facility] CO2 [Moles/Vol] 29.0 mmol/L 21.0-32.0 [facility] Globulin (S) [Mass/Vol] 3.5 g/dL 2.2-4.2 [facility] Urea nitrogen/Creatinine [Mass ratio] 14.4 mg/mg 10-20 [facility] - Hematology and Cell countsOrdered By: Rebecca Gonzales on 04-10-2023 Erythrocyte distribution width (RBC) [Entitic vol] 48.5 fL 35.1-43.9 [facility] Erythrocyte distribution width (RBC) [Ratio] 13.9 % 11.6-14.6 [facility] Immature granulocytes/100 WBC (Bld) 0.300 % 0.0-0.9 [facility] Comment on above: IG% - Immature Granu locytes (promyelocytes, myelocytes and metamyelocytes) > 1% indicates that a LEFT SHIFT is Present. MCH (RBC) [Entitic mass] 29.8 pg 27.0-32.0 [facility] Nucleated RBC/100 WBC (Bld) [Ratio] 0 % 0-5 [facility] MCHC Auto (RBC) [Mass/Vol]Or dered By: Rebecca Gonzales on 04-10-2023 MCHC (RBC) [Mass/Vol] 31.2 g/dL 32-36 [facility] No Panel InformationOrdered By: Rebecca Gonzales on 04-10-2023 Estimated GFR (MDRD) Amer 78 mL/min >60 [facility] Comment on above: GFR Calc Estimated GFR (MDRD) Non-Af Amer 65 mL/min >60 [facility] Comment on above: Non- GFR Calc Free Triiodothyronine (T3) pg/dL 2.8 pg/mL 2.18-3.98 [facility] Thyroid Stimulating Hormone (TSH) 0.53 uIU/mL 0.358-3.74 [facility] Platelets bldOrdered By: Chari Gonzales on 04-10-2023 Platelets (Bld) [#/Vol] 225 10*3/uL 150-450 [facility] Serum or plasma albumin christie urement (mass/volume)Ordered By: Rebecca Gonzales on 04-10-2023 Albumin [Mass/Vol] 3.4 g/dL 3.2-5.0 [facility] Serum or plasma albumin/glob ulin mass ratioOrdered By: Rebecca Gonzales on 04-10-2023 Albumin/Globulin [Mass ratio] 1.0 {ratio} 0.9-2.4 [facility] Serum or plasma calcium christie urement (mass/volume)Ordered By: Rebecca Gonzales on 04-10-2023 Calcium [Mass/Vol] 8.6 mg/dL 8.5-10.1 [facility] Serum or plasma cholesterol in HDL measurement (mass/volume)Ordered By: Rebecca Gonzales on 04-10-2023 Cholesterol in HDL [Mass/Vol] 48 mg/dL >40 [facility] Comment on above: The drugs N-Acetylcy steine and Metamizole may falsely depress this assay. Reference Range HDL <40 mg/dL Low HDL Cholesterol HDL >or= 60 mg/dL High HDL Cholesterol Serum or plasma cholesterol in VLDL measurement (mass/volume)Ordered By: Rebecca Gonzales on 04-10-2023 Cholesterol in VLDL [Mass/Vol] 37 mg/dL 5-40 [facility] Serum or plasma creatinine m easurement (mass/volume)Ordered By: Rebecca Gonzales on 04-10-2023 Creatinine [Mass/Vol] 0.90 mg/dL 0.55-1.02 [facility] Comment on above: The validity of the calculated GFR & GFRAA in patients over 70 years has not been determined. Clinical correlation is essential. Serum or plasma low density lipoprotein (LDL) cholesterol measurement (mass/volume)Ordered By: Rebecca Gonzales on 04-10-2023 Cholesterol in LDL [Mass/Vol] 75 mg/dL 0-130 [facility] Serum or plasma urea nitroge n measurement (mass/volume)Ordered By: Rebecca Gonzales on 04-10-2023 Urea nitrogen [Mass/Vol] 13 mg/dL 7-18 [facility] Thin prep Papanicolaou smear with manual screeningOrdered By: Rebecca Gonzales on 04-10-2023 Thin prep Papanicolaou smear with manual screening 21 U/L 15-37 [facility] Thin prep Papanicolaou smear with manual screening 4 5-15 [facility] Whole blood hemoglobin A1c/t otal hemoglobin ratio (mass fraction)Ordered By: Rebecca Gonzales on 04-10-2023 HbA1c (Bld) [Mass fraction] 5.7 % 3.8-5.6 [facility] Comment on above: Normal < 5.7 % Predi abetic 5.7 - 6.4 % Diabetic >or= 6.5 % Please note range changes. Absolute lymphocyte countOrd ered By: Dr. Jennings on 07-04-2022 Lymphocytes Auto (Unsp spec) [#/Vol] 1.42 10*3/uL 0.83-4.51 [facility] Basophil percentageOrdered B y: Dr. Jennings on 07-04-2022 Basophils/100 WBC (Bld) 0.8 % 0-1 [facility] Bilirubin [Mass/Vol] 0.50 mg/dL 0.20-1.00 [facility] Comment on above: For patients on eltr ombopag therapy, use of Dimension [place] TBIL is not recommended. Eosinophils/100 WBC (Bld) 1.6 % 0-5 [facility] Neutrophils (Bld) [#/Vol] 5.4 10*3/uL 2.0-7.7 [facility] Neutrophils/100 WBC (Bld) 73.7 % 47-70 [facility] Protein [Mass/Vol] 7.4 g/dL 6.4-8.2 [facility] WBC (Bld) [#/Vol] 7.4 10*3/uL 4.4-11.0 [facility] Blood erythrocytes count (nu mber/volume)Ordered By: Dr. Jennings on 07-04-2022 RBC (Bld) [#/Vol] 4.99 10*6/uL 4.2-5.4 [facility] Blood hemoglobin measurement (mass/volume)Ordered By: Dr. Jennings on 07-04-2022 Hemoglobin (Bld) [Mass/Vol] 14.8 g/dL 12.0-15.0 [facility] Blood lymphocytes/100 leukoc ytesOrdered By: Dr. Jennings on 07-04-2022 Lymphocytes/100 WBC (Bld) 19.3 % 19-41 [facility] Blood monocytes/100 leukocyt esOrdered By: Dr. Jennings on 07-04-2022 Monocytes/100 WBC (Bld) 4.3 % 0-10 [facility] Blood platelet mean volumeOr dered By: Dr. Jennings on 07-04-2022 Platelet mean volume (Bld) [Entitic vol] 10.3 fL 6.2-12.0 [facility] Determination of erythrocyte mean corpuscular volume (MCV)Ordered By: Dr. Jennings on 07-04-2022 MCV (RBC) [Entitic vol] 94.4 fL 81-99 [facility] Direct bilirubinOrdered By: Dr. Jennings on 07-04-2022 Bilirubin.direct [Mass/Vol] 0.11 mg/dL 0.00-0.30 [facility] Hematocrit Auto (Bld) [Volum e fraction]Ordered By: Dr. Jennings on 07-04-2022 Hematocrit (Bld) [Volume fraction] 47.1 % 37-47 [facility] Laboratory - Chemistry and C hemistry - challengeOrdered By: Dr. Jennings on 07-04-2022 ALP [Catalytic activity/Vol] 65 U/L 45-117 [facility] ALT [Catalytic activity/Vol] 23 U/L 13-56 [facility] Globulin (S) [Mass/Vol] 3.4 g/dL 2.2-4.2 [facility] - Hematology and Cell countsOrdered By: Dr. Jennings on 07-04-2022 Erythrocyte distribution width (RBC) [Entitic vol] 46.6 fL 35.1-43.9 [facility] Erythrocyte distribution width (RBC) [Ratio] 13.3 % 11.6-14.6 [facility] Immature granulocytes/100 WBC (Bld) 0.300 % 0.0-0.9 [facility] Comment on above: IG% - Immature Granu locytes (promyelocytes, myelocytes and metamyelocytes) > 1% indicates that a LEFT SHIFT is Present. MCH (RBC) [Entitic mass] 29.7 pg 27.0-32.0 [facility] Nucleated RBC/100 WBC (Bld) [Ratio] 0 % 0-5 [facility] MCHC Auto (RBC) [Mass/Vol]Or dered By: Dr. Jennings on 07-04-2022 MCHC (RBC) [Mass/Vol] 31.4 g/dL 32-36 [facility] No Panel InformationOrdered By: Dr. Jennings on 07-04-2022 Hepatitis B Surface Antigen Non-Reactive Nonreactive [facility] Hepatitis C Antibody Non-Reactive Nonreactive [facility] Comment on above: Non Reactive: < 0.8 Equivocal: >/= 0.8 to < 1.0 Reactive: >/= 1.0The [facility] recommends that a reactive/equivocal HCV antibody result be followed up by the HCV Nucleic Acid Amplificationtest (010335) Platelets bldOrdered By: Dr. Jennings on 07-04-2022 Platelets (Bld) [#/Vol] 204 10*3/uL 150-450 [facility] Qualitative QuantiFERON-TB g old in tube testOrdered By: Dr. Jennings on 07-04-2022 M. tuberculosis tuberculin stim IFN-g Ql (Bld) 0.04 IU/mL . [facility] Serum hepatitis B virus core antibody detectionOrdered By: Dr. Jennings on 07-04-2022 HBV core Ab Ql (S) Negative Negative [facility] Comment on above: Performed at: [place] [id number] Director: Cornell Blanchard PhD, Phone: [phone] Serum hepatitis B virus surf tamera antibody IgG detectionOrdered By: Dr. Jennings on 07-04-2022 HBV surface IgG Ql (S) Non-Reactive [facility] Comment on above: Non Reactive: Incons istent with immunity less than <10 mIU/mL Reactive: Consistent with immunity greater than or equal to 10 mIU/mL Serum or plasma albumin christie urement (mass/volume)Ordered By: Dr. Jennings on 07-04-2022 Albumin [Mass/Vol] 4.0 g/dL 3.2-5.0 [facility] Thin prep Papanicolaou smear with manual screeningOrdered By: Dr. Jennings on 07-04-2022 Thin prep Papanicolaou smear with manual screening 18 U/L 15-37 [facility] Thin prep Papanicolaou smear with manual screening Comment . [facility] Comment on above: QuantiFERON-TB Gold [...] smear with manual screening 0.01 IU/mL . [facility] Thin prep Papanicolaou smear with manual screening > 10.00 IU/mL . [facility] Thin prep Papanicolaou smear with manual screening Negative Negative [facility] Comment on above: No response [...] Auto (Unsp spec) [#/Vol] 1.67 10*3/uL 0.83-4.51 [facility] Basophil percentageOrdered B y: Dr. Gonzales on 04-11-2022 Basophils/100 WBC (Bld) 1.1 % 0-1 [facility] Bilirubin [Mass/Vol] 0.40 mg/dL 0.20-1.00 [facility] Comment on above: For patients on eltr ombopag therapy, use of Dimension [place] TBIL is not recommended. Chloride [Moles/Vol] 108 mmol/L 98-107 [facility] Cholesterol [Mass/Vol] 174 mg/dL <200 [facility] Comment on above: <200 mg/dL Desirable 200-240 mg/dL Borderline >240 mg/dL High Risk Eosinophils/100 WBC (Bld) 3.9 % 0-5 [facility] Glucose [Mass/Vol] 107 mg/dL 74-106 [facility] Comment on above: Fasting Glucose resu lt from 100 to 125 mg/dL suggests IMPAIRED HOMEOSTASIS per A.D.A. criteria. Neutrophils (Bld) [#/Vol] 3.4 10*3/uL 2.0-7.7 [facility] Neutrophils/100 WBC (Bld) 59.1 % 47-70 [facility] Potassium [Moles/Vol] 4.2 mmol/L 3.5-5.1 [facility] Protein [Mass/Vol] 7.0 g/dL 6.4-8.2 [facility] Sodium [Moles/Vol] 142 mmol/L 136-145 [facility] Triglyceride [Mass/Vol] 171 mg/dL <199 [facility] Comment on above: The drugs N-Acetylcy steine and Metamizole may falsely depress this assay.Serum Triglycerides Reference Interval Normal <150 mg/dL Borderline high 150 - 199 mg/dL High 200 - 499 mg/dL Very High > or = 500 mg/dL WBC (Bld) [#/Vol] 5.7 10*3/uL 4.4-11.0 [facility] Blood erythrocytes count (nu mber/volume)Ordered By: Dr. Gonzales on 04-11-2022 RBC (Bld) [#/Vol] 4.93 10*6/uL 4.2-5.4 [facility] Blood hemoglobin measurement (mass/volume)Ordered By: Dr. Gonzales on 04-11-2022 Hemoglobin (Bld) [Mass/Vol] 15.1 g/dL 12.0-15.0 [facility] Blood lymphocytes/100 leukoc ytesOrdered By: Dr. Gonzales on 04-11-2022 Lymphocytes/100 WBC (Bld) 29.5 % 19-41 [facility] Blood monocytes/100 leukocyt esOrdered By: Dr. Gonzales on 04-11-2022 Monocytes/100 WBC (Bld) 6.0 % 0-10 [facility] Blood platelet mean volumeOr dered By: Dr. Gonzales on 04-11-2022 Platelet mean volume (Bld) [Entitic vol] 10.6 fL 6.2-12.0 [facility] Determination of erythrocyte mean corpuscular volume (MCV)Ordered By: Dr. Gonzales on 04-11-2022 MCV (RBC) [Entitic vol] 93.3 fL 81-99 [facility] Hematocrit Auto (Bld) [Volum e fraction]Ordered By: Dr. Gonzales on 04-11-2022 Hematocrit (Bld) [Volume fraction] 46.0 % 37-47 [facility] Laboratory - Chemistry and C hemistry - challengeOrdered By: Dr. Gonzales on 04-11-2022 ALP [Catalytic activity/Vol] 55 U/L 45-117 [facility] ALT [Catalytic activity/Vol] 25 U/L 13-56 [facility] CO2 [Moles/Vol] 29.0 mmol/L 21.0-32.0 [facility] Globulin (S) [Mass/Vol] 3.5 g/dL 2.2-4.2 [facility] Urea nitrogen/Creatinine [Mass ratio] 11.9 mg/mg 10-20 [facility] Laboratory - Hematology and Cell countsOrdered By: Dr. Gonzales on 04-11-2022 Erythrocyte distribution width (RBC) [Entitic vol] 46.3 fL 35.1-43.9 [facility] Erythrocyte distribution width (RBC) [Ratio] 13.5 % 11.6-14.6 [facility] Immature granulocytes/100 WBC (Bld) 0.400 % 0.0-0.9 [facility] Comment on above: IG% - Immature Granu locytes (promyelocytes, myelocytes and metamyelocytes) > 1% indicates that a LEFT SHIFT is Present. MCH (RBC) [Entitic mass] 30.6 pg 27.0-32.0 [facility] Nucleated RBC/100 WBC (Bld) [Ratio] 0 % 0-5 [facility] MCHC Auto (RBC) [Mass/Vol]Or dered By: Dr. Gonzales on 04-11-2022 MCHC (RBC) [Mass/Vol] 32.8 g/dL 32-36 [facility] No Panel InformationOrdered By: Dr. Gonzales on 04-11-2022 Estimated GFR (MDRD) Amer 77 mL/min >60 [facility] Comment on above: GFR Calc Estimated GFR (MDRD) Non-Af Amer 63 mL/min >60 [facility] Comment on above: Non- GFR Calc Platelets bldOrdered By: Dr. Gonzales on 04-11-2022 Platelets (Bld) [#/Vol] 205 10*3/uL 150-450 [facility] Serum or plasma albumin christie urement (mass/volume)Ordered By: Dr. Gonzales on 04-11-2022 Albumin [Mass/Vol] 3.5 g/dL 3.2-5.0 [facility] Serum or plasma albumin/glob ulin mass ratioOrdered By: Dr. Gonzales on 04-11-2022 Albumin/Globulin [Mass ratio] 1.0 {ratio} 0.9-2.4 [facility] Serum or plasma calcium christie urement (mass/volume)Ordered By: Dr. Gonzales on 04-11-2022 Calcium [Mass/Vol] 8.7 mg/dL 8.5-10.1 [facility] Serum or plasma cholesterol in HDL measurement (mass/volume)Ordered By: Dr. Gonzales on 04-11-2022 Cholesterol in HDL [Mass/Vol] 54 mg/dL >40 [facility] Comment on above: The drugs N-Acetylcy steine and Metamizole may falsely depress this assay. Reference Range HDL <40 mg/dL Low HDL Cholesterol HDL >or= 60 mg/dL High HDL Cholesterol Serum or plasma cholesterol in VLDL measurement (mass/volume)Ordered By: Dr. Gonzales on 04-11-2022 Cholesterol in VLDL [Mass/Vol] 34 mg/dL 5-40 [facility] Serum or plasma creatinine m easurement (mass/volume)Ordered By: Dr. Gonzales on 04-11-2022 Creatinine [Mass/Vol] 0.92 mg/dL 0.55-1.02 [facility] Comment on above: The validity of the calculated GFR & GFRAA in patients over 70 years has not been determined. Clinical correlation is essential. Serum or plasma low density lipoprotein (LDL) cholesterol measurement (mass/volume)Ordered By: Dr. Gonzales on 04-11-2022 Cholesterol in LDL [Mass/Vol] 86 mg/dL 0-130 [facility] Serum or plasma urea nitroge n measurement (mass/volume)Ordered By: Dr. Gonzales on 04-11-2022 Urea nitrogen [Mass/Vol] 11 mg/dL 7-18 [facility] Thin prep Papanicolaou smear with manual screeningOrdered By: Dr. Gonzales on 04-11-2022 Thin prep Papanicolaou smear with manual screening 15 U/L 15-37 [facility] Thin prep Papanicolaou smear with manual screening 5 5-15 [facility] No Panel Informationon 02-03 POC SARS CoV-2 Antigen Positive [facility] Work Phone: Vital Signs Date Time Vital Sign Value Performing Clinician Kala cardy 02-03-2022 13:20-0400 Body height 156.[address] Rebecca Gonzales Work Phone: [facility] Work Phone: 02-03-2022 13:20-0400 Body mass index (BMI) [Ratio] 29.9 kg/m2 Dr. Rebecca Gonzales Work Phone: [facility] Work Phone: 02-03-2022 13:20-0400 Body temperature 97.8 [degF] Dr. Rebecca Gonzales Work Phone: [facility] Work Phone: 02-03-2022 13:20-0400 Body weight 73.[address] Rebecca Gonzales Work Phone: [facility] Work Phone: 02-03-2022 13:20-0400 Diastolic blood pressure 82 mm[Hg] Dr. Rebecca Gonzales Work Phone: [facility] Work Phone: 02-03-2022 13:20-0400 Heart rate 84 /min Dr. Rebecca Gonzales Work Phone: [facility] Work Phone: 02-03-2022 13:20-0400 Respiratory rate 16 /min Dr. Rebecca Gonzales Work Phone: [facility] Work Phone: 02-03-2022 13:20-0400 SaO2% (BldA) [Mass fraction] 97 % Dr. Rebecca Gonzales Work Phone: [facility] Work Phone: 02-03-2022 13:20-0400 Systolic blood pressure 122 mm[Hg] Dr. Rebecca Gonzales Work Phone: [facility] Work Phone: Encounters Encounter Date Encounter Type Care Provider Facility Start: 12-15-2024 ambulatory Loyd Javier Facility :[facility] Start: 10-30-2024 End: 10-30-[address] Rebecca Gonzales DO Work Phone: [facility] Work Phone: Start: 10-30-2024 End: 10-30-2024 Patient encounter procedure Laurie Baker [facility] -[facility] Work Phone: Start: 10-30-2024 End: 10-30-2024 ambulatory [facility] Facility:[facility] Start: 10-24-2024 End: 10-24-2024 Patient encounter procedure Nicole MARROQUIN [facility] Work Phone: Start: 10-24-2024 End: 10-24-[address] Rebecca Gonzales DO Work Phone: [facility] Work Phone: Start: 10-14-2024 End: 10-14-[address] Rebecca Gonzales DO Work Phone: [facility] Work Phone: Start: 10-14-2024 End: 10-14-2024 Patient encounter procedure Laurie Samuel [facility] -[facility] [place] Work Phone: Start: 10-14-2024 End: 10-14-2024 ambulatory [facility] Facility:[facility] Start: 10-13-2024 End: 10-13-2024 Patient encounter procedure Laurie Canalesgar [facility] -[facility] [place] Work Phone: Start: 10-13-2024 End: 10-13-2024 ambulatory [facility] Facility:[facility] Start: 07-10-2024 End: 07-10-[address] Agustin Jennings MD -[facility] Work Phone: Start: 07-10-2024 End: 07-10-2024 ambulatory Rebecca Malys Facility:[facility] Start: 05-27-2024 End: 05-27-2024 ambulatory Rebecca Malys Facility:[facility] Start: 04-10-2024 End: 04-10-2024 ambulatory Rebecca Malys Facility:[facility] Start: 07-09-2023 End: 07-09-2023 ambulatory [facility] Work Phone: Start: 07-09-2023 End: 07-09-2023 Patient encounter procedure [facility] Work Phone: Start: 05-10-2023 End: 05-10-2023 Patient encounter procedure [facility] Work Phone: Start: 04-10-2023 End: 04-10-2023 ambulatory [facility] Work Phone: Start: 04-10-2023 End: 04-10-2023 Patient encounter procedure [facility] Start: 07-04-2022 End: 07-04-2022 ambulatory [facility] Work Phone: Start: 07-04-2022 End: 07-04-2022 Patient encounter procedure [facility] Start: 04-27-2022 End: 04-27-[address] Rebecca Gonzales Work Phone: [facility] Work Phone: Start: 04-27-2022 End: 04-27-[address] Rebecca Gonzales Work Phone: [facility] Start: 04-11-2022 End: 04-11-[address] Rebecca Gonzales Work Phone: [facility] Work Phone: Start: 04-11-2022 End: 04-11-[address] [facility] Gonzales [facility] Start: 02-03-2022 End: 02-03-[address] Rebecca Gonzales Work Phone: [facility] Procedures Date Procedure Procedure Detail Performing Clinician Start: 10-30-2024 Computed tomography of abdomen and pelvis with contrast Dr. Rebecca Gonzales DO Work Phone: Start: 10-14-[address] Rebecca [...] the productionof interferon gamma. Chemiluminescence immunoassaymethodologyPerformed at: [facility] [id number] Director: Cornell Blanchard PhD, Phone: [phone] Start: 05-10-2023 Screening mammography Start: 04-27-2022 Dual energy X-ray absorptiometry Dr. Chari Gonzales Work Phone: Start: 04-27-[address] Rebecca Gonzales Work Phone: Plan of Treatment Date Care Activity Detail Author Start: 10-14-2024 Ova and Parasites Ova and Parasites [facility] Ova OR parasites identification [facility] Payers Date Payer Category Payer Private Health Insurance [id number] 2024 Medicare [id number] 2024 Private Health Insurance I [id number] 2024 Self-pay [id number] 2014 Unknown ANTHEM [id number] Private Health Insurance [employer] [facility] [id number] Unknown [id number] 2.16.8 [id number] Unknown [id number] 2.16.8 [id number] Unknown [id number] 2.16.8 [id number] Unknown [id number] 2.16.8 [id number] Unknown [id number] 2.16.8 [id number] Unknown [id number] 2.16.8 [id number] Unknown [id number] 2.16.8 [id number] Unknown [id number] 2.16.8 [id number] Social History Date Type Detail Facility Start: 02-03-2022 Tobacco smoking stat [facility] Unknown if ever smoked [facility] Start: 1950 Sex Assigned At Female [facility] Start: 02-03-2022 Tobacco smoking stat [facility] Never smoked tobacco (finding) [facility] Radiology Diagnostic study note 10-31-2024 Note Date & Type Note Facility 10-31-2024 Radiology Diagnostic study note [facility] Imaging Services [address], [place] [address] Abdomen/Pelvis WITH Contrast MR#: [id number] Acct: [id number] Name: MICHELLE WAKEFIELD Rep #: [id number] : [id number] F 74 From: Silvia Gutierres MD PCP: Dr. Rebecca Gonzales, Status: REG CLI Study:Abdomen/Pelvis WITH Contrast Date of Ex am: 10/30/24 Exam# [id number] Ordering Dr: Ra elizabet Baker [employer] PROCEDURE: ABDOMEN/PELVIS WITH CONTRAST 10/30/2024 REASON FOR EXAM: ASSESS GI FOR ABNORMALITIES TECHNIQUE: Abdomen and pelvis CT with intravenous and oral contrast. Coronal and Sagittal reconstruction series were provided. PATIENT PREPARATION: Per protocol CONTRAST: 96 mL Isovue-300 One or more dose reduction techniques were used (e.g., Automated exposure control, adjustment of the mA and/or kV according to patient size, use of iterative reconstruction technique. RADIATION DOSE SUMMARY: CTDlvol: 20.2 mGy DLP: 1087 mGycm COMPARISON: Abdominal radiographs on 10/13/2024 FINDINGS: Lung bases: Linear scarring or atelectasis in the lingula. Liver: Unremarkable Gallbladder: Unremarkable Spleen: Normal size. Pancreas: Normal size without evidence of mass surrounding inflammation or ductal dilation. Adrenals: Unremarkable Kidneys: No hydronephrosis or stone. Extrarenal pelvis on the right. Bladder: Unremarkable Reproductive Organs: Uterine calcifications, likely calcified leiomyoma. Bowel: No obstruction or inflammation. Normal appendix. There are tiny diverticula from the transverse duodenum. Colonic diverticulosis. Lymph nodes: Unremarkable Vasculature: Trace aortic atherosclerotic calcifications. Bones: Degenerative changes of the spine. Abdominal wall: Tiny fat containing umbilical hernia. CT/Abdomen/Pelvis WITH Contrast IMPRESSION: 1. No acute intra-abdominal abnormality. 2. Tiny diverticula of the transverse duodenum. 3. Colonic diverticulosis, without evidence of acute diverticulitis. Reading Location: [id number] CC: PHAN Baker; Dr. Rebecca Gonzales, DO ~ Infant Caregiver: Signed [facility] Evaluation note 10-24-2024 Note Date & Type Note Facility 10-24-2024 Evaluation note Diagnosis Onset Date Resolution Abdominal pain acute October 24, 2024 12:49pm Diarrhea acute October 24, 2024 12:49pm [facility] Work Phone: Progress note 10-24-2024 Note Date & Type Note Facility 10-24-2024 Progress note Note Date/Time October 24, 2024 1:37pm [facility] [address] [place] [address] OFFICE VISIT Date of Service: 10/24/24 MR#: [id number] Acct: [id number] Name: MICHELLE WAKEFIELD Rep #: [id number] : 1950 Provider: LOPEZ He Age/Sex: 74/F Location: [facility] [place] Status: Signed Intake [...] to the office today for establishment with [facility]. KUB 5.19.25 Bowel-gas pattern appears within limits. No gaseous distention ofbowel or evidence of mass effect. Stool 5.20.25 lactoferrin positive, negative for enteric pathogens, c.Diff negative, O&P and Giardia negative OV 5.30.25 Pt has [...] 2016. She had a negative Cologuard test [id number]. She is worried about colon cancer as [...] fallen in the past year?: No 10/24/24 1337 <Electronically signed by Nicole MARROQUIN> Date _ Nicole MARROQUIN Cosigner Signature: Date (if applicable) CC: ~ [facility] Work Phone: Progress note 10-24-2024 Note Date & Type Note Facility 10-24-2024 Progress note [facility] Evaluation note Note Date & Type Note Facility Evaluation note No assessment information availa [facility] Work Phone: Evaluation note Note Date & Type Note Facility Evaluation note Diagnosis Onset Date Resolution Abdominal pain acute October 24, 2024 12:49pm Diarrhea acute October 24, 2024 12:49pm [facility] Work Phone: Reason for referral (narrative) Note Date & Type Note Facility Reason for referral (narrative) No reason for referral information available [facility] Work Phone: Chief Complaint and [...] pm Diarrhea October 24, 2024 12:49 pm Chief Complaint Admit Date STOOL BURDEN, DIARRHEA October 13, 2024 12 :34pm STOOL DROPOFF October 14, 2024 7:34a m PRE Colon October 24, 2024 12:49 pm ASSESS GI FOR ABNORMALITIES October 30 12:39pm Family History No Family History Records Found Relationship Condition Age at Onset Recorded Date/T jigna mother Cardiac disease Unknown Hypertension Unknown father Cerebrovascular accident (CVA) Unknown Advance Directives No Advanced Directives Records Found Advance Directive Response Recorded Date/ Time Living Will Yes February 07, 2017 1:28pm Power of Echometer Engineer Yes January 1:28pm Summary Purpose Additional Source [...] October 13, 2024 End: October 13, 2024 Laurie Baker NP-C Attending Provider Active St art: October 13, 2024 End: October 13, 2024 Laurie Baker SALES PORTER-C Referring Provider Active St art: October 13, 2024 End: October 13, 2024 Team Status: Inactive Member Role Status Dates Dr. Rebecca Gonzales DO Primary Care Provider Active Start: October 14, 2024 End: October 14, 2024 Laurie Baker [employer]-C Attending Provider Active St art: October 14, 2024 End: October 14, 2024 Laurie Baker [employer]-C Referring Provider Active St art: October 14, 2024 End: October 14, 2024 Team Status: Inactive Member Role Status Dates Dr. Rebecca Gonzales DO Referring Provider Active St art: October 24, 2024 End: October 24, 2024 LOPEZ He Attending Provider Active Start: October 24, 2024 End: October 24, 2024 Team Status: Inactive Member Role Status Dates Laurie Baker NP-C Attending Provider Active St art: October 30, 2024 End: October 30, 2024 aLurie Baker NP-C Referring Provider Active St art: October 30, 2024 End: October 30, 2024 Dr. Rebecca Gonzales DO Primary Care Provider Active Start: October 30, 2024 End: October 30, 2024 INFORMATION SOURCE (unrecogn ized section and content) DATE CREATED AUTHOR 12/07/2024 [facility] FOR RECORDS PERTAINING TO PATIENTS WHO ARE [...] BE BASED ON THE PRIMARY CLINICAL RECORDS. [facility] [employer] provides no warranty or guarantee of the accuracy or completeness of information in this document.
[2024-12-15] MEDS: Lactated Ringers 1,000 ML 15 ML IV (06:03)
--- NOTE | 2024-12-15 06:20 | PRE.ANES_ITS ---
ASA Classification* ASA Classification ASA Classification: 2 Assessment & Plan Anesthesia* Anesthesia Assessment Anesthesia Assessment: Discussed sedation and/or anesthesia options, risks, benefits, and alternatives with patient/parents/legal guardian/POA. Questions invited. The patient/parents/legal guardian/POA seems to understand and agrees to proceed with anesthesia plan. Reviewed the physical assessment, medical history, allergy history and patient home medications list prior to surgery/procedure/anesthetic and documented any changes. Performed airway and anesthesia risk assessments. Anesthesia Type Anesthesia Type: MAC History Source History Obtained from:: Patient and Chart Anesthesia Focused Assessment* Temperature: 98.8 F Pulse Rate: 82 Blood Pressure: 137/65 Respiratory Rate: 18 Pulse Ox: 95 Oxygen Delivery Method: Room Air Airway Assessment Mouth opens: >3 cm Mallampati Score: III Teeth Condition: Caps/Crowns (Patient has crown right upper molar. It is tight.) Neck Range of motion (ROM): Full ROM Labs Anesthesia Preop lab: CBC WBC 9.3 K/mm3 (4.4-11.0) 07/10/24 14:07/10/24 RBC 4.92 M/mm3 (4.2-5.4) 07/10/24 14:23 07/10/24 Hgb 14.6 g/dL (12.0-15.0) 07/10/24 14:23 07/10/24 Hct 46.4 % (37-47) 07/10/24 14:23 07/10/24 Plt Count 246 K/mm3 (150-450) 07/10/24 14:23 07/10/24 CHEMISTRY Potassium 4.1 mmol/L (3.5-5.1) 04/10/24 13:04/10/24 Sodium 141 mmol/L (136-145) 04/10/24 13:04/10/24 BUN 19 mg/dL (7-18) H 04/10/24 13:04/10/24 Creatinine 0.94 mg/dL (0.55-1.02) 04/10/24 13:04/10/24 Glucose 96 mg/dL (74-106) 04/10/24 13:04/10/24 TSH 0.432 uIU/mL (0.358-3.740) 04/10/24 13:28 03/28 09/18 COAG Pre-Assessment Diagnosis/Proposed Procedure Planned Operative Procedure(s): CSCOPE Anesthesia History 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 When Was Last Pacemaker Check QUESTION #4 FULL TEXT: You/Your Family Experience fever (hyperthermia) with Anesthesia Last Oral Intake Last Oral intake: Last Oral Intake NPO since 02:15 12/15/24 05:53 Meds taken in AM with sips of Yes 12/15/24 05:53 water? Meds patient instructed to take am of surgery Any additional information?: Yes NPO since: 02:15 (Patient finished prep at 2:15 AM.) PONV PONV - organizational development specialist: PONV - organizational development specialist Female Yes 12/12/24 08:53 HX of Motion Sickness No 12/12/24 08:53 HX of N/V After Surgery No 12/12/24 08:53 Non-Smoker Yes 12/12/24 08:53 Duration of Surgery greater No 12/12/24 08:53 than 60 minutes Number of Risk Factors 2 12/12/24 08:53 PONV Score Moderate Risk 12/12/24 08:53 Height & Weight Height & Weight: Anesthesia: Height & Weight Height 5 ft 2 in 12/15/24 05:53 Weight: 76.929 kg 12/15/24 05:53 Body Mass Index (BMI) 31.0 12/15/24 05:53 Respiratory Assessment Respiratory Assessment - organizational development specialist: Respiratory Tract Infection Hx - organizational development specialist Hx Respiratory Tract Infection No 12/12/24 08:53 STOP Sleep Apnea STOP Sleep Apnea - organizational development specialist: STOP Sleep Apnea - organizational development specialist Hx Hypertension No 12/12/24 08:53 Hx Sleep Apnea No 12/12/24 08:53 CPAP BIPAP Do you snore loudly (louder No 12/12/24 08:53 than talking or can be heard Do you often feel tired/ Yes 12/12/24 08:53 fatigued/ sleepy during daytime? Has anyone observed you stop No 12/12/24 08:53 breathing during sleep? STOP Results Negative 12/12/24 08:53 QUESTION #5 FULL TEXT : Do you snore loudly (louder than talking or can be heard through closed doors)? 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 Specify any problems Hx of Preganancy in last 3 No 12/12/24 08:53 Months Nurse Filling Out Transfusion DSCHRIBER 12/12/24 08:53 & Questions: Date: 12/12/24 12/12/24 08:53 Time: 08:56 12/12/24 08:53 Patient unable to answer at this time (ie. confused, unrespo /Reproduction History /Reproductive History - organizational development specialist: /Reproductive Hx- organizational development specialist Hx Now No 12/12/24 08:53 Gestational Age (in weeks): EDC: Hx Hx Para Hx Section SAB No 12/12/24 08:53 Active Medications Active Medications: Current Medications Generic Name Dose Route Start Last Admin Trade Name Freq PRN Reason Stop Dose Admin Lactated Ringer's 1,000 mls @ 15 mls/hr 12/15/24 05:45 12/15/24 06:03 IV 15 mls/hr .Q48H JAILENE Administration PFSH Medical History Plaque psoriasis Wears hearing aid Wears glasses Post-menopausal Diabetes Bladder disease Easy bruising Vertigo History of hiatal hernia Gastric reflux Asthma Leg cramps Non-smoker History of stress test Home Medications ?Medication ?Instructions ?Recorded ?Last Taken ?Type cholecalciferol (vitamin D3) 50 2,000 unit PO DAILY 12/13/24 History mcg (2,000 unit) capsule (Vitamin D3) cyanocobalamin (vitamin B-12) 500 1,000 mcg PO DAILY@0 800 02/07/17 12/13/24 History mcg tablet multivitamin (Multiple Vitamins 1 ea PO DAILY 02/07/17 12/06/24 History tablet) mirabegron 50 mg tablet,extended 100 mg PO DAILY 02/0312/15/24 03:00 History release 24 hr (Myrbetriq) omeprazole 40 mg capsule,delayed 40 mg PO DAILY 12/15/24 03:00 History release risankizumab-rzaa 150 mg/mL 150 mg subcut Q12W 5 Unknown History subcutaneous syringe (Skyrizi) Allergy/AdvReac Type Severity Reaction Status Date / Time Sulfa (Sulfonamide AdvReac DOESNT Verified 12/15/24 05:50 Antibiotics) WORK FOR [employer] Family History Mother Heart disease Hypertension Father CVA (cerebral vascular accident) Surgical History Hx of colonoscopy Social History Smoking Status: Never smoker alcohol intake: current alcohol intake frequency: a few times a week Alcohol type: wine Review of Systems (Anesthesia) ROS Narrative System reviewed and no additional complaints, except as documented.
--- NOTE | 2024-12-15 06:30 | COLBX_PTH ---
PATIENT: MICHELLE WAKEFIELD LOC: EN U#:[id number] AGE/SX: 74/F ROOM: RE12/15/[address]: Dr. Loyd Javier DO : 1950 BED: DIS: 12/15/2024 SPEC #: [id number] RECD: 12/15/24 10:01 STATUS: NICHOLAS REArturo #: [id number] ALLI: 12/15/24 06:[address]: Loyd Javier DEPT: SURGICAL PATHOLOGY RECD BY: Alex Finney ENTERED: 12/15/24 14:31 SP TYPE: COLON BX OT DR: Dr. Rebecca Gonzales DO Tissues: A - COLON BIOPSY B - Cecum, NOS C - Ileum, NOS D - COLON BIOPSY Procedures: Surgery Specimen Level IV HEADER OPERATION: Colonoscopy with biopsy, polypectomy PRE-OP DIAGNOSIS: Abdominal pain, diarrhea TISSUE SUBMITTED: A- Hepatic flexure polyp, B- Cecal polyp, C- Terminal ileum biopsy, D- Random colon biopsy MICROSCOPIC DIAGNOSIS A. Hepatic flexure, colon, polyp, biopsy: * Serrated lesion (sessile serrated polyp/adenoma. B. Cecum, polyp, biopsy: * Tubular adenoma. C. Terminal ileum, biopsy: * Tubulovillous adenoma. D. Colon, random biopsy: * Unremarkable colonic mucosa. * Negative for microscopic colitis. MICROSCOPIC DESCRIPTION Slides are reviewed. GROSS DESCRIPTION A. Received in fixative is one container labeled with the patient's name and designated Hepatic flexure polyp. The specimen consists of three irregular fragments of light dover soft tissue that in aggregate measure <0.1 to 0.4 cm. The specimen is totally submitted in one cassette. B. Received in fixative is one container labeled with the patient's name and designated Cecal polyp. The specimen consists of one irregular fragment of light dover soft tissue that measures 0.2 cm. The specimen is totally submitted in one cassette. C. Received in fixative is one container labeled with the patient's name and designated Terminal ileum biopsy. The specimen consists of three irregular fragments of light dover soft tissue, each measuring 0.4 cm. The specimen is totally submitted in one cassette. D. Received in fixative is one container labeled with the patient's name and designated Random colon biopsy. The specimen consists of one irregular fragment of light dover soft tissue that measures 0.3 to 0.4 cm. The specimen is totally submitted in one cassette. Viktoriya 12/15/2024 CPT:82964j0
--- NOTE | 2024-12-15 06:31 | PCM.HP.STD ---
HPI - General General Date of Admission: 12/15/24 Date of Service: 12/15/24 Chief Complaint: Diarrhea HPI Narrative NICOLLE WAKEFIELD, is a 74 F who presents with Chief Complaint: diarrhea KUB 5.19.25 Bowel-gas pattern appears within limits. No gaseous distention of bowel or evidence of mass effect. Stool 5.20.25 lactoferrin positive, negative for enteric pathogens, c.Diff negative, O&P and Giardia negative OV 5.30.25 Pt has been having abdominal pain and loose stools since October 07. The night it started she had sever abd pain and explosive loose stools she thought she may need to call the squad however she did not. SHe saw her PCP who ordered stool testing which was positive for wbc but not infection. Since then her pain has become less severe but she continues to have constant cramping abd pain. She is having loose stools over 5x per day. Sometimes they are soft and formed other times they are liquid. Prior to this, she had very normal bowel habits with a solid bm daily. She has tried imodium which did not alleviate her loose stools. Last colonoscopy was in 2016. She had a negative Cologuard test in 2022. She is worried about colon cancer as he from colon cancer. She denies daily use of NSAIDs. SHe is on omeprazole but has been on this for almost 30 years. [facility] Medical History Plaque psoriasis Wears hearing aid Wears glasses Post-menopausal Diabetes Bladder disease Easy bruising Vertigo History of hiatal hernia Gastric reflux Asthma Leg cramps Non-smoker History of stress test Home Medications ?Medication ?Instructions ?Recorded ?Last Taken ?Type cholecalciferol (vitamin D3) 50 2,000 unit PO DAILY 02/07/17 12/13/24 History mcg (2,000 unit) capsule (Vitamin D3) cyanocobalamin (vitamin B-12) 500 1,000 mcg PO DAILY@0800 02/07/17 12/13/24 History mcg tablet multivitamin (Multiple Vitamins 1 ea PO DAILY 02/07/17 12/06/24 History tablet) mirabegron 50 mg tablet,extended 100 mg PO DAILY 02/03/22 12/15/24 03:00 History release 24 hr (Myrbetriq) omeprazole 40 mg capsule,delayed 40 mg PO DAILY 02/03/22 12/15/24 03:00 History release risankizumab-rzaa 150 mg/mL 150 mg subcut Q12W 10/24/24 Unknown History subcutaneous syringe (Skyrizi) Allergy/AdvReac Type Severity Reaction Status Date / Time Sulfa (Sulfonamide AdvReac DOESNT Verified 12/15/24 05:50 Antibiotics) WORK FOR [employer] Family History Mother Heart disease Hypertension Father CVA (cerebral vascular accident) Surgical History Hx of colonoscopy Social History Smoking Status: Never smoker alcohol intake: current alcohol intake frequency: a few times a week Alcohol type: wine ROS Constitutional Constitutional: Denies fatigue, fever(s), poor appetite, weight gain or weight loss Gastrointestinal Gastrointestinal: Denies belching, bloating, change in bowel habits, change in stool character, chewing difficulty, coffee ground emesis, constipation, cramping, diarrhea, dyspepsia, dysphagia, early satiety, excessive flatus, fecal incontinence, heartburn, hematemesis, hematochezia, hemorrhoids, loose stools, melena, nausea, odynophagia, rectal bleeding, tenesmus, vomiting or weight changes Vital Signs Vital Signs Vital Signs: 12/15/24 05:49 12/15/24 05:53 12/15/24 06:26 Temperature 98.8 F 98.8 F Temperature Source Temporal Pulse Rate 82 82 Respiratory Rate 18 18 Respiratory Pattern Normal Blood Pressure 137/65 H 137/65 H Blood Pressure Mean 89 Blood Pressure Source Monitor Blood Pressure Position Semi-Fowlers Blood Pressure Location Left Arm Pulse Ox 95 95 Oxygen Delivery Method Room Air Room Air Weight Weight: 169 lb 9.6 oz Body Mass Index (BMI) 31.0 Physical Exam Const alert, oriented x3, no apparent distress and healthy appearing General Appearance: cooperative GI normal to inspection, nondistended, normoactive bowel sounds, soft to palpation, non-tender and non-distended Percussion: normal to percussion Rectal Exam: deferred Assessment & Plan Assessment/Plan (1) Abdominal pain: (2) Diarrhea: PLAN: Assessment and Plan Assessment and Plan (1) Diarrhea: Status: Acute Plan: Nicolle is a 74 yo female pt here today for evaluation of loose stool and abdominal pain x2 weeks. Pt started with severe lower abdominal pain and explosive watery diarrhea. Symptoms have improved in severity but continues to have 5+ loose stools daily and constant abd cramping. Stool testing was positive for lactoferrin but negative for enteric pathogens, O&P, Giardia, c.diff and h pylori. Her last colonoscopy was in 2016 and Cologuard in 2022. SHe will undergo colonoscopy to rule out colitis. Pt also having CT abd/pelvis in a few weeks for further evaluation. I have offered colestipol for loose stools however she prefers to not mask her symptoms. She may try dicyclomine for her pain which was prescribed by her PCP. -Colonoscopy -CT abd/pelvis -Dicyclomine PRn -Consider colestipol (2) Abdominal pain: Status: Acute
--- NOTE | 2024-12-15 07:11 | PCM.POST.ANE ---
Anesthesia: Postop Eval I Current Vital Signs Temperature: 98 F Pulse Rate: 86 Blood Pressure: 114/63 Respiratory Rate: 16 Pulse Ox: 96 Oxygen Delivery Method: Room Air Assessment Airway patent: Yes Spontaneous unlabored respirations: Yes Mental status: Awake nausea: No Vomiting: No Anesthesia Complication: No Fluid Hydration Crystalloid volume administer (ml): 400 Total IV fluid infused: 400 Progress Note Anesthesia document: Postop Eval 1 completed: Yes
--- NOTE | 2024-12-15 07:16 | OP.COLON_ITS ---
Patient Name: Nicolle Velazquez Procedure Date: 12/15/2024 6:35 AM Date of : 1950 Age: 74 Procedure: Colonoscopy Indications: Clinically significant diarrhea of unexplained origin Providers: Loyd Javier DO Referring MD: Rebecca Gonzales Medicines: Monitored Anesthesia Care Patient Profile: This is a 74 year old female. Refer to note in patient chart for documentation of history and physical. Last Colonoscopy: several years ago. Complications: No immediate complications. Procedure: Pre-Anesthesia Assessment: - Prior to the procedure, a History and Physical was performed, and patient medications and allergies were reviewed. The patient is competent. The risks and benefits of the procedure and the sedation options and risks were discussed with the patient. All questions were answered and informed consent was obtained. Patient identification and proposed procedure were verified by the physician in the pre-procedure area. Mental Status Examination: alert and oriented. Airway Examination: normal oropharyngeal airway and neck mobility. Respiratory Examination: clear to auscultation. CV Examination: normal. ASA Grade Assessment: II - A patient with mild systemic disease. After reviewing the risks and benefits, the patient was deemed in satisfactory condition to undergo the procedure. The anesthesia plan was to use monitored anesthesia care (MAC). Immediately prior to administration of medications, the patient was re-assessed for adequacy to receive sedatives. The heart rate, respiratory rate, oxygen saturations, blood pressure, adequacy of pulmonary ventilation, and response to care were monitored throughout the procedure. The physical status of the patient was re-assessed after the procedure. After I obtained informed consent, the scope was passed under direct vision. Throughout the procedure, the patient's blood pressure, pulse, and oxygen saturations were monitored continuously. The Colonoscope was introduced through the anus and advanced to the terminal ileum. The colonoscopy was performed without difficulty. The patient tolerated the procedure well. The quality of the bowel preparation was adequate. The terminal ileum, ileocecal valve, appendiceal orifice, and rectum were photographed. Scope In: 6:43:40 AM Scope Withdrawal Time 0 hours 11 minutes 25 seconds Scope Out: 7:01:14 AM Total Procedure Duration Time 0 hours 17 minutes 34 seconds Findings: The perianal and digital rectal examinations were normal. Two sessile polyps were found in the hepatic flexure and cecum. The polyps were 5 mm in size. These polyps were removed with a jumbo cold forceps. Resection and retrieval were complete. Verification of patient identification for the specimen was done. Estimated blood loss was minimal. An area of mildly congested mucosa was found in the sigmoid colon, in the descending colon and in the transverse colon. Biopsies were taken with a cold forceps for histology. Verification of patient identification for the specimen was done. Estimated blood loss was minimal. Biopsies were taken in the ileum of as 5 to 7mm elevated polypoid lesion. Multiple small and large-mouthed diverticula were found in the recto-sigmoid colon, sigmoid colon and descending colon. Impression: - Two 5 mm polyps at the hepatic flexure and in the cecum, removed with a jumbo cold forceps. Resected and retrieved. - Congested mucosa in the sigmoid colon, in the descending colon and in the transverse colon. Biopsied. Recommendation: - Discharge patient to home. - Resume previous diet. - Continue present medications. - Await pathology results. - Repeat colonoscopy at appointment to be scheduled for surveillance based on pathology results. Procedure Code(s): --- Professional --- 95515, Colonoscopy, flexible; with biopsy, single or multiple CPT copyright 2021 [employer]. All rights reserved. The codes documented in this report are preliminary and upon label coder review may be revised to meet current compliance requirements. Loyd Javier DO 12/15/2024 7:15:55 AM This report has been signed electronically. Number of Addenda: 0 Note Initiated On: 12/15/2024 6:35 AM
--- NOTE | 2024-12-15 07:17 | OP.CCLET_ITS ---
12/15/2024 Rebecca Gonzales [address] [facility] [place] [address] Re : Colonoscopy procedure for Nicolle Velazquez Dear Dr. Gonzales This procedure was performed on Sunday, December 15, 2024. My impressions and recommendations are as follows: Impressions : - Two 5 mm polyps at the hepatic flexure and in the cecum, removed with a jumbo cold forceps. Resected and retrieved. - Congested mucosa in the sigmoid colon, in the descending colon and in the transverse colon. Biopsied. Recommendations : - Discharge patient to home. - Resume previous diet. - Continue present medications. - Await pathology results. - Repeat colonoscopy at appointment to be scheduled for surveillance based on pathology results. My findings are described in the full procedure note, which is enclosed. If I can be of further assistance, please feel free to contact me at . Sincerely, Loyd Javier, 12/15/2024 7:15:55 AM This report has been signed electronically.
--- NOTE | 2024-12-15 13:40 | PCM.POSTANE2 ---
Anesthesia Postop Eval I Sum Postop Eval Completion status Anesthesia document: Postop Eval 1 completed: Yes Anesthesia Postop Eval I Summary Anesthesia Postop Eval I Summary: Anesthesia Postop Eval I: Assessment Summary Airway patent Yes 12/15/24 07:12 [email or web address] Spontaneous unlabored Yes 12/15/24 07:12 [email or web address] respirations Mental status Awake 12/15/24 07:12 [email or web address] nausea No 12/15/24 07:12 [email or web address] Vomiting No 12/15/24 07:12 [email or web address] Anesthesia Postop Eval I: Fluid Summary Crystalloid volume administer 400 12/15/24 07:12 [email or web address] (ml) Colloids volume administered ( ml) Blood Product volume administered (ml) Total IV fluid infused 400 12/15/24 07:12 [email or web address] Anesthesia Postop Eval I: Summary Notes Anesthesia Complication No 12/15/24 07:12 [email or web address] Anesthesia Complication Comment: Post-operative progress note Anesthesia: Postop Eval II Evaluation Mental status: Awake and Calm Pain Level: 0 nausea: No Vomiting: No Complications Anesthesia Complication: No
== END 2024-12-15 07:56 | disposition home or self-care (01) ==
LOC: EN 05:10 → AC 05:12
PROVIDERS: PCP Family Medicine; Referring Provider Family Medicine; Visit Provider Internal Medicine Gastroenterology
PROC: 0DJD8ZZ Inspection of Lower Intestinal Tract, Via Natural or Artificial Opening Endoscopic (ICD-10-PCS; CPT 45378; principal; 2024-12-15 06:25)
DX: K57.30 Diverticulosis of large intestine without perforation or abscess without bleeding (principal); D12.0 Benign neoplasm of cecum; D12.3 Benign neoplasm of transverse colon; K21.9 Gastro-esophageal reflux disease without esophagitis; R19.7 Diarrhea, unspecified; Z79.899 Other long term (current) drug therapy; Z80.0 Family history of malignant neoplasm of digestive organs
CPT/HCPCS: 45380; 88305; J2405

== ENCOUNTER → 2025-03-06 | Outpatient (CLI) | payer MEDICARE, OTHER, SELFPAY ==
[2025-03-06 12:29] LABS: Hematocrit 44.7 % (37-47); Hemoglobin 14.7 g/dL (12.0-15.0); Immature Granulocytes Count 0.030 X10^3/uL (0.0-0.0); Mean Corp Hgb Conc 32.9 g/dL (32-36); Mean Corpuscular Volume 92.4 fL (81-99); Mean Platelet Vol. 10.7 fl (6.2-12.0); NRBC Flagged by Analyzer 0 % (0-5); Platelet Count 204 K/mm3 (150-450); RBC Distribution Width CV 13.7 % (11.6-14.6); RBC Distribution Width SD 46.6 fl (35.1-43.9); Red Blood Count 4.84 M/mm3 (4.2-5.4); White Blood Count 6.9 K/mm3 (4.4-11.0)
[2025-03-06 12:44] LABS: AST(SGOT) 24 U/L (<=31); Alanine Aminotransfer ALT/SGPT 21 U/L (<=34); Albumin, Serum 4.2 g/dL (3.4-4.8); Alkaline Phosphatase 67 U/L (35-104); Anion Gap 10 (5-15); BUN 13 mg/dL (4-19); BUN/Creat Ratio 13.4 RATIO (10-20); Calcium,Total 9.5 mg/dL (7.6-11.0); Carbon Dioxide 26.5 mmol/L (21.0-32.0); Chloride 106 mmol/L (98-108); Cholesterol 175 mg/dL (<=200); Ferritin 107 ng/mL (22-378); Free T3 3.2 pg/mL (2.18-3.98); Globulin 2.9 g/dL (2.2-4.2); Glucose 112 mg/dL (70-99); Low Density Lipoprotein Calc. 82 mg/dL; Potassium 4.4 mmol/L (3.3-5.1); Triglycerides 201 mg/dL; Very Low Density Lipoprotein 40 mg/dL (5-40); Vitamin B12 1037 pg/mL (180-914); Vitamin D,25 Hydroxy 77.5 ng/mL (30-100); cholesterol:hdl ratio screen 3.33
[2025-03-06 13:13] LABS: FOLATES,SERUM (FOLIC ACID) 27.40 ng/mL (4.60-34.80)
[2025-03-06 13:23] LABS: Iron 102 ug/dL (50-170)
== END | disposition home or self-care (01) ==
LOC: MTLAB 09:23
PROVIDERS: PCP Family Medicine; Referring Provider Family Medicine; Visit Provider Family Medicine
DX: D64.9 Anemia, unspecified (principal); E61.1 Iron deficiency; E55.9 Vitamin D deficiency, unspecified; E53.8 Deficiency of other specified B group vitamins; E78.5 Hyperlipidemia, unspecified; R53.83 Other fatigue; R73.03 Prediabetes; Z51.81 Encounter for therapeutic drug level monitoring
CPT/HCPCS: 36415; 80053; 80061; 82306; 82607; 82728; 82746; 83036; 83540; 84439; 84443; 84481; 85025